=== PATIENT | female | born 1940 | race Caucasian/White ===

== ENCOUNTER 2017-12-26 17:08 | Observation (INO) ==
--- NOTE | 2017-12-26 17:49 | Emergency Department Note ---
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 Diabetes mellitus complication status: with unspecified complications Qualified Code(s): E11.8 - Type 2 diabetes mellitus with unspecified complications Hypothyroidism Qualifiers: Hypothyroidism type: unspecified Qualified Code(s): E03.9 - Hypothyroidism, unspecified Disposition: Admitted as Observation Condition on Discharge: Good Referrals: Elenita Malagon PA [Primary Care Provider] - - Critical Care Critical Care Time: No Attestation: On 12/26/17, the high probability of a clinically significant, sudden or life threatening deterioration of the following system(s) required my full and direct attention, intervention and personal management. The time I documented below is in addition to time spent performing reported procedures but includes the following listed in this critical care notation. Medical Decision Making - Medical Records Medical records reviewed: Yes: I reviewed the patient's medical records. - Jose Inquiry Pt receiving controlled substance: No Vital Signs: 12/26/17 17:12 Temperature 100.2 F H Temperature Source Tympanic Pulse Rate [Left Radial] 80 Respiratory Rate 16 Blood Pressure [Right Arm] 171/58 Blood Pressure Mean [Right Arm] 95 02 Sat by Pulse Oximetry 96 Oxygen Delivery Method Room Air - Lab Data Lab results reviewed: Yes: I reviewed the patient's lab results. Lab Results 12/26/17 17:30: WBC 9.7, RBC 5.19, Hgb 14.3, Hct 42.4, MCV 81.7, MCH 27.5, MCHC 33.6, RDW 13.3, Plt Count 209, MPV 8.6, Neut % (Auto) 85.8 H, Lymph % (Auto) 7.5 L, [place] % (Auto) 6.3, Eos % (Auto) 0.1, Baso % (Auto) 0.3, Neut # (Auto) 8.3 H, Lymph # (Auto) 0.7, [place] # (Auto) 0.6, Eos # (Auto) 0.0, Baso # (Auto) 0.0, Total Counted 100, Neutrophils % (Manual) 85 H, Band Neutrophils % 7.0, Lymphocytes % (Manual) 6 L, Monocytes % (Manual) 2, Platelet Estimate Normal, RBC Morphology Normal 12/26/17 17:30: Sodium 136, Potassium 3.2 L, Chloride 97 L, Carbon Dioxide 28, Anion Gap 14.2, BUN 25 H, Creatinine 1.05 H, Estimated Creat Clear 51, Estimated GFR 51 L, Est GFR ( Amer) 61, Glucose 296 H, Calcium 9.7, Total Bilirubin 0.8, AST 12 L, ALT 17, Alkaline Phosphatase 60, Troponin I < 0.02, Total Protein 8.0, Albumin 3.9, Globulin 4.1 H, Albumin/Globulin Ratio 1.0 L 12/26/17 17:30: Lactic Acid 1.7 12/26/17 18:55: Urine Color Yellow, Urine Appearance Cloudy, Urine pH 5.5, Ur Specific [place] 1.025, Urine Protein 1+, Urine Glucose (UA) 3+, Urine Ketones 1 +, Urine Blood 1+, Urine Nitrate Positive, Urine Bilirubin Negative, Urine Urobilinogen 1.0, Ur Leukocyte Esterase 1+ A, Urine RBC None, Urine WBC Tntc, Ur Squamous Epith Cells 5-10, Urine Bacteria 4+ Result diagrams: 12/26/17 17:30 12/26/17 17:30 Orders (Tests/Meds): ORDERS Category Date Time Status XR chest 2V Stat Exams 12/26/17 17:24 Taken Blood Culture Stat Micro 12/26/17 17:30 Ordered Urine Culture Stat Micro 12/26/17 18:55 Received Weakness HPI - General Chief complaint: Weakness Stated complaint: burning up.weakness Time Seen by Provider: 12/26/17 17:20 Mode of Arrival: Ambulatory Limitations: No Limitations Description of Symptoms (Recalled from ER Triage Doc. by RN): to ed per pvt car with c/o "not feeling well" difficult to obtain a hx from pt. c/o generalized weakness and "burning up" and cough. denies any chills, nausea vomiting, SOB or chest pain. states started yesterday afternoon and resolved lastnight but return of symptoms today. - History of Present Illness HPI Narrative: pt with not feeling well and weak with dec po intake - no chest pain - no vomiting but has nausea and no diarrhea MD Complaint: generalized weakness Onset (ago): day(s) Duration: constant Migration: none Severity: moderate Associated symptoms: loss of appetite, nausea/vomiting - Related Data Home Medications Medication Instructions Recorded Confirmed Ergocalciferol (Vitamin D2) 50,000 unit PO QWEEK 12/26/17 12/26/17 [Vitamin D2] Levothyroxine Sodium [Synthroid 25 mcg PO ONCE 12/26/17 12/26/17 25mcg (0.025mg) tablet] Lisinopril/Hydrochlorothiazide 1 tab PO DAILY 12/26/17 12/26/17 [Lisinopril-Hctz 20-25 mg Tab] Metformin HCl [Glucophage] 1,000 mg PO BID 12/26/17 12/26/17 Pioglitazone HCl 15 mg PO DAILY 12/26/17 12/26/17 glipiZIDE [Glipizide ER] 10 mg PO DAILY 12/26/17 12/26/17 Allergies Allergy/AdvReac Type Severity Reaction Status Date / Time No Known Allergies Allergy Unverified 07/22/17 14:29 [facility] History I have reviewed the patient's past medical history: Yes - Social History Alcohol Intake: never - Psychiatric History Expresses thoughts of harming self/others: None Suicide Plan Description: No Plan ROS Obtained: Yes All systems reviewed & no additional complaints - Constitutional Constitutional: Denies fever(s), Reports malaise - Eyes Eyes: Denies change in vision - ENT Ears, Nose, Mouth, and Throat: Denies sore throat - Cardiovascular Cardiovascular: Denies chest pain - Respiratory Respiratory: No cough - Gastrointestinal Gastrointestingal: Reports: nausea. Denies: abdominal pain - Genitourinary Female Genitourinary: Denies dysuria, Denies hematuria - Integumentary/Breasts Skin/Breast: Denies rash - Neurologic Neurologic: Denies seizure-like activity Physical Exam - General General appearance: in no apparent distress - Head Head exam: normocephalic - Eye Eye exam: Present: PERRL, EOMI. Absent: scleral icterus - ENT ENT exam: Present: mucous membranes dry - Neck Neck exam: Absent: trachea midline - Respiratory Respiratory exam: Present: normal lung sounds bilaterally. Absent: respiratory distress - Cardiovascular Cardiovascular exam: Present: regular rate, systolic murmur - Abdominal Exam Abdominal exam: Present: soft - Extremities Exam Extremities exam: Absent: joint swelling - Back Exam Back exam: Absent: CVA tenderness (R) - Neurological Exam Neurological exam: Present: alert, oriented X3, CN II-XII intact - Psychiatric Psychiatric exam: Absent: depressed - Skin Skin exam: Absent: rash
[2017-12-26 17:56] LABS: Basophils % 0.3 % (0.1-2.0); Eosinophils % 0.1 % (0.1-12.0); Hematocrit 42.4 % (37.0-47.0); Hemoglobin 14.3 g/dL (12.2-16.2); Lymphocytes # 0.7 K/mm3 (0.7-4.5); Lymphocytes % 7.5 K/mm3 (10-50); Mean Corpuscular HGB Conc 33.6 g/dL (31.8-35.4); Mean Corpuscular Hemoglobin 27.5 pg (27.0-31.2); Mean Corpuscular Volume 81.7 fl (81-99); Mean Platelet Volume 8.6 fl (7.4-10.4); Monocytes # 0.6 K/mm3 (0.1-1.0); Monocytes % 6.3 % (1.7-9.3); Neutrophils # 8.3 K/mm3 (1.8-7.8); Neutrophils % 85.8 % (37.0-80.0); Platelet Count 209 K/mm3 (142-424); Red Blood Count 5.19 M/mm3 (4.20-5.40); Red Cell Distribution Width 13.3 % (11.5-17.5); White Blood Count 9.7 K/mm3 (4.8-10.8)
[2017-12-26 18:16] LABS: Alanine Aminotransferase 17 U/L (12-78); Albumin Level 3.9 gm/dL (3.4-5.0); Alkaline Phosphatase 60 U/L (46-116); Anion Gap 14.2 mEq/L (5-15); Aspartate Amino Transferase 12 U/L (15-37); Bilirubin,Total 0.8 mg/dL (0.2-1.0); Blood Urea Nitrogen 25 mg/dL (7-18); Calcium 9.7 mg/dL (8.5-10.1); Carbon Dioxide 28 mmol/L (21.0-32.0); Chloride 97 mmol/L (98-107); Globulin 4.1 gm/dl (1.3-3.2); Glucose 296 mg/dL (74-106); Potassium 3.2 mmoL/L (3.5-5.1); Sodium 136 mmol/L (136-145)
[2017-12-26 18:51] LABS: Lymphocytes % 6 % (10-50); Monocytes % 2 % (2-9); Neutrophils % 85 % (42-76); RBC Morphology Normal; Total Cells Counted 100
[2017-12-26 19:04] LABS: Microscopic, Urine URINE MICROSCOPIC (MICROSCOPIC)
[2017-12-26 19:05] LABS: Appearance,Urine CLOUDY (Clear); Bilirubin,Urine Negative (Negative); Blood, Urine 1+ (Negative); Color,Urine YELLOW (Yellow); Glucose,Urine (UA) 3+ (Negative); Ketones,Urine 1+ (Negative); Leukocyte Esterase,Urine 1+ (Negative); PH,Urine 5.5 (5.0-8.5); Protein,Urine 1+ (Negative); Specific Gravity, Urine 1.025 (1.005-1.030)
[2017-12-26 19:23] LABS: Bacteria,Urine 4+ /lpf; WBC,Urine TNTC #/hpf (0-3)
[2017-12-26 20:07] LABS: T4 (Thyroxine) 14.3 ug/dl (4.7-13.3); Thyroid Stimulating Hormone 1.85 uIU/ml (0.358-3.740)
[2017-12-27 07:01] LABS: Basophils % 0.1 % (0.1-2.0); Eosinophils % 0.2 % (0.1-12.0); Hematocrit 37.2 % (37.0-47.0); Lymphocytes # 0.8 K/mm3 (0.7-4.5); Lymphocytes % 12.6 K/mm3 (10-50); Mean Corpuscular HGB Conc 33.2 g/dL (31.8-35.4); Mean Corpuscular Hemoglobin 27.4 pg (27.0-31.2); Mean Corpuscular Volume 82.4 fl (81-99); Mean Platelet Volume 8.6 fl (7.4-10.4); Monocytes # 0.5 K/mm3 (0.1-1.0); Monocytes % 6.8 % (1.7-9.3); Neutrophils # 5.4 K/mm3 (1.8-7.8); Neutrophils % 80.3 % (37.0-80.0); Platelet Count 173 K/mm3 (142-424); Red Blood Count 4.52 M/mm3 (4.20-5.40); Red Cell Distribution Width 13.3 % (11.5-17.5); White Blood Count 6.7 K/mm3 (4.8-10.8)
[2017-12-27 07:19] LABS: Hemoglobin 12.4 g/dL (12.2-16.2)
[2017-12-27 08:43] VITALS: BP 153/54
--- NOTE | 2017-12-27 09:48 | Pharmacy Consult Notes ---
[facility] Pharmacy VTE Monitoring - Patient Demographics Admission date: 12/27/17 Report Date: 12/27/17 Time: 09:47 Allergies/Adverse Reactions: Patient Allergies No Known Allergies Allergy (Unverified 07/22/17 14:29) Height: 1.68 m Weight: 70.817 kg Patient Problems: Current Active Problems UTI (urinary tract infection) (Acute) Renal insufficiency (Acute) Diabetes (Acute) Hypothyroidism (Acute) - VTE Risk Labs: VTE Related Lab Results Hgb 12.4 g/dL (12.2-16.2) D 12/27/17 06:30 Hct 37.2 % (37.0-47.0) 12/27/17 06:30 Plt Count 173 K/mm3 (142-424) 12/27/17 06:30 BUN 22 mg/dL (7-18) H 12/27/17 06:30 Creatinine 0.89 mg/dL (0.55-1.02) 12/27/17 06:30 Estimated Creat Clear 52 mL/min (0-300) 12/27/17 06:30 VTE Score: 1 VTE Risk Level: Very Low Risk - Prophylaxis Location of Applied Device: Bilateral Lower Extremeties, Not Applicable - VTE Diagnosis Confirmed Comment: SHAHNAZ CHAWLA ORDERED
--- NOTE | 2017-12-27 10:21 | H&P/Discharge Summary ---
General - General Admission date:: 12/26/17 Discharge date: 12/27/17 *Admission Date: 12/27/17 *Chief complaint: weakness *History of present illness: 77 yr old female presents to ed per pvt car with c/o "not feeling well" for 2 weeks but wore since . Pt c/o generalized weakness and "burning up" and cough. denies any chills, nausea vomiting, SOB or chest pain. Pt admitted for monitoring and repeat labs. [facility] History I have reviewed the patient's past medical history: Yes Medical History: Reports:: Diabetes Mellitus Type 2, Hypertension Denies:: Cancer, Diabetes Mellitus Type 1, MRSA Other Medical History: Reports: Cataracts Laterality Cases: Bilateral: Cataract Other Surgeries: Yes: Skin Cancer Excision Amputation: No Fractures: No - *Social History Educational Level: Completed High School Smoking Status: Never smoker Alcohol Intake: never Occupational Status: retired Housing: house Household Members: spouse - Psychiatric History Expresses thoughts of harming self/others: None Suicide Plan Description: No Plan *Family Hx:: Cancer, Coronary Artery Disease, Diabetes, Heart Attack Review of Systems - Review of Systems Review of systems:: pertinent systems reviewed and negative unless documented below - Constitutional Reports weakness, Denies chills - Eyes Denies change in vision - ENT Denies change in voice - *Cardiovascular Denies chest pain with activity - *Respiratory Denies cough - *Gastrointestinal Denies change in bowel habits - *Genitourinary Denies abnormal vaginal bleeding - *Musculoskeletal Denies decreased muscle mass - Integumentary/Breasts Denies change in hair, Denies rash - *Neurologic Denies abnormal movements, Denies seizure-like activity - Psychiatric Denies anxiety - Endocrine Denies flushing - Hematologic/Lymphatic Denies enlarged lymph nodes - Allergic/Immunologic Denies lip swelling Exam Vital signs and Labs for Last 24 Hours: Temp Pulse Resp BP Pulse Ox 98.8 F 78 18 153/54 97 12/27/17 08:00 12/27/17 08:00 12/27/17 08:00 12/27/17 08:00 12/27/17 08:00 Laboratory Results - last 24 hr 12/26/17 17:30: WBC 9.7, RBC 5.19, Hgb 14.3, Hct 42.4, MCV 81.7, MCH 27.5, MCHC 33.6, RDW 13.3, Plt Count 209, MPV 8.6, Neut % (Auto) 85.8 H, Lymph % (Auto) 7.5 L, [place] % (Auto) 6.3, Eos % (Auto) 0.1, Baso % (Auto) 0.3, Neut # (Auto) 8.3 H, Lymph # (Auto) 0.7, [place] # (Auto) 0.6, Eos # (Auto) 0.0, Baso # (Auto) 0.0, Total Counted 100, Neutrophils % (Manual) 85 H, Band Neutrophils % 7.0, Lymphocytes % (Manual) 6 L, Monocytes % (Manual) 2, Platelet Estimate Normal, RBC Morphology Normal 12/26/17 17:30: Sodium 136, Potassium 3.2 L, Chloride 97 L, Carbon Dioxide 28, Anion Gap 14.2, BUN 25 H, Creatinine 1.05 H, Estimated Creat Clear 51, Estimated GFR 51 L, Est GFR ( Amer) 61, Glucose 296 H, Calcium 9.7, Total Bilirubin 0.8, AST 12 L, ALT 17, Alkaline Phosphatase 60, Troponin I < 0.02, Total Protein 8.0, Albumin 3.9, Globulin 4.1 H, Albumin/Globulin Ratio 1.0 L 12/26/17 17:30: Lactic Acid 1.7 12/26/17 17:30: TSH 1.85, Thyroxine (T4) 14.3 H 12/26/17 18:55: Urine Color Yellow, Urine Appearance Cloudy, Urine pH 5.5, Ur Specific [place] 1.025, Urine Protein 1+, Urine Glucose (UA) 3+, Urine Ketones 1 +, Urine Blood 1+, Urine Nitrate Positive, Urine Bilirubin Negative, Urine Urobilinogen 1.0, Ur Leukocyte Esterase 1+ A, Urine RBC None, Urine WBC Tntc, Ur Squamous Epith Cells 5-10, Urine Bacteria 4+ 12/26/17 22:28: POC Glucose 344 H* 12/27/17 05:57: POC Glucose 188 H 12/27/17 06:30: WBC 6.7 D, RBC 4.52, Hgb 12.4 D, Hct 37.2, MCV 82.4, MCH 27.4 , MCHC 33.2, RDW 13.3, Plt Count 173, MPV 8.6, Neut % (Auto) 80.3 H, Lymph % ( Auto) 12.6, [place] % (Auto) 6.8, Eos % (Auto) 0.2, Baso % (Auto) 0.1, Neut # (Auto ) 5.4, Lymph # (Auto) 0.8, [place] # (Auto) 0.5, Eos # (Auto) 0.0, Baso # (Auto) 0.0 12/27/17 06:30: Sodium 139, Potassium 3.0 L, Chloride 102, Carbon Dioxide 30, Anion Gap 10.0, BUN 22 H, Creatinine 0.89, Estimated Creat Clear 52, Estimated GFR 61, Est GFR ( Amer) 74 D, Glucose 192 H D 12/27/17 08:59: POC Glucose 248 H I & O for Last 24 hours: Intake & Output 12/24/17 12/25/17 12/26/17 12/27/17 11:59 11:59 11:59 11:59 Intake Total 1600 / 1600 Output Total 150 / 150 Balance 1450 / 1450 Weight 156 lb 2 oz Microbiology Reports for the Last 24 Hours: Microbiology 12/26/17 18:55 Urine,Clean Catch Urine Culture - Preliminary Gram Negative Rods - Constitutional no acute distress - *Routine HEENT Exam Head: Present: normocephalic Eye: Present: PERRL ENT: Present: mucous membranes moist - *Routine Neck Exam Present: supple, full ROM - *Routine Respiratory Exam Present: CTA bilaterally - *Routine Cardiovascular Exam Present: RRR - *Routine Abdominal Exam Present: soft, normoactive bowel sounds - *Routine Extremities Exam Present: full ROM - *Routine Skin Exam Present: intact - *Routine Neurological Exam Present: alert, oriented X3, CN II-XII intact - Routine Psychiatric Exam Present: normal affect, normal thought process Hospital Course Hospital Course: iv fluids, monitoring of labs. today pt states better, will dc home to follow up with loulou this week, recheck kcl friday Results Labs on day of discharge: Labs from last 24 hours 12/27/17 12/27/17 12/27/17 08:59 06:30 06:30 WBC 6.7 D RBC 4.52 Hgb 12.4 D Hct 37.2 MCV 82.4 MCH 27.4 MCHC 33.2 RDW 13.3 Plt Count 173 MPV 8.6 Neut % (Auto) 80.3 H Lymph % (Auto) 12.6 [place] % (Auto) 6.8 Eos % (Auto) 0.2 Baso % (Auto) 0.1 Neut # (Auto) 5.4 Lymph # (Auto) 0.8 [place] # (Auto) 0.5 Eos # (Auto) 0.0 Baso # (Auto) 0.0 Total Counted Neutrophils % (Manual) Band Neutrophils % Lymphocytes % (Manual) Monocytes % (Manual) Platelet Estimate RBC Morphology Sodium 139 Potassium 3.0 L Chloride 102 Carbon Dioxide 30 Anion Gap 10.0 BUN 22 H Creatinine 0.89 Estimated Creat Clear 52 Estimated GFR 61 Est GFR ( Amer) 74 D Glucose 192 H D POC Glucose 248 H Lactic Acid Calcium Total Bilirubin AST ALT Alkaline Phosphatase Troponin I Total Protein Albumin Globulin Albumin/Globulin Ratio TSH Thyroxine (T4) Urine Color Urine Appearance Urine pH Ur Specific [place] Urine Protein Urine Glucose (UA) Urine Ketones Urine Blood Urine Nitrate Urine Bilirubin Urine Urobilinogen Ur Leukocyte Esterase Urine RBC Urine WBC Ur Squamous Epith Cells Urine Bacteria 12/27/17 12/26/17 12/26/17 05:57 22:28 18:55 WBC RBC Hgb Hct MCV MCH MCHC RDW Plt Count MPV Neut % (Auto) Lymph % (Auto) [place] % (Auto) Eos % (Auto) Baso % (Auto) Neut # (Auto) Lymph # (Auto) [place] # (Auto) Eos # (Auto) Baso # (Auto) Total Counted Neutrophils % (Manual) Band Neutrophils % Lymphocytes % (Manual) Monocytes % (Manual) Platelet Estimate RBC Morphology Sodium Potassium Chloride Carbon Dioxide Anion Gap BUN Creatinine Estimated Creat Clear Estimated GFR Est GFR ( Amer) Glucose POC Glucose 188 H 344 H* Lactic Acid Calcium Total Bilirubin AST ALT Alkaline Phosphatase Troponin I Total Protein Albumin Globulin Albumin/Globulin Ratio TSH Thyroxine (T4) Urine Color Yellow Urine Appearance Cloudy Urine pH 5.5 Ur Specific [place] 1.025 Urine Protein 1+ Urine Glucose (UA) 3+ Urine Ketones 1+ Urine Blood 1+ Urine Nitrate Positive Urine Bilirubin Negative Urine Urobilinogen 1.0 Ur Leukocyte Esterase 1+ A Urine RBC None Urine WBC Tntc Ur Squamous Epith Cells 5-10 Urine Bacteria 4+ 12/26/17 12/26/17 12/26/17 17:30 17:30 17:30 WBC RBC Hgb Hct MCV MCH MCHC RDW Plt Count MPV Neut % (Auto) Lymph % (Auto) [place] % (Auto) Eos % (Auto) Baso % (Auto) Neut # (Auto) Lymph # (Auto) [place] # (Auto) Eos # (Auto) Baso # (Auto) Total Counted Neutrophils % (Manual) Band Neutrophils % Lymphocytes % (Manual) Monocytes % (Manual) Platelet Estimate RBC Morphology Sodium 136 Potassium 3.2 L Chloride 97 L Carbon Dioxide 28 Anion Gap 14.2 BUN 25 H Creatinine 1.05 H Estimated Creat Clear 51 Estimated GFR 51 L Est GFR ( Amer) 61 Glucose 296 H POC Glucose Lactic Acid 1.7 Calcium 9.7 Total Bilirubin 0.8 AST 12 L ALT 17 Alkaline Phosphatase 60 Troponin I < 0.02 Total Protein 8.0 Albumin 3.9 Globulin 4.1 H Albumin/Globulin Ratio 1.0 L TSH 1.85 Thyroxine (T4) 14.3 H Urine Color Urine Appearance Urine pH Ur Specific [place] Urine Protein Urine Glucose (UA) Urine Ketones Urine Blood Urine Nitrate Urine Bilirubin Urine Urobilinogen Ur Leukocyte Esterase Urine RBC Urine WBC Ur Squamous Epith Cells Urine Bacteria 12/26/17 17:30 WBC 9.7 RBC 5.19 Hgb 14.3 Hct 42.4 MCV 81.7 MCH 27.5 MCHC 33.6 RDW 13.3 Plt Count 209 MPV 8.6 Neut % (Auto) 85.8 H Lymph % (Auto) 7.5 L [place] % (Auto) 6.3 Eos % (Auto) 0.1 Baso % (Auto) 0.3 Neut # (Auto) 8.3 H Lymph # (Auto) 0.7 [place] # (Auto) 0.6 Eos # (Auto) 0.0 Baso # (Auto) 0.0 Total Counted 100 Neutrophils % (Manual) 85 H Band Neutrophils % 7.0 Lymphocytes % (Manual) 6 L Monocytes % (Manual) 2 Platelet Estimate Normal RBC Morphology Normal Sodium Potassium Chloride Carbon Dioxide Anion Gap BUN Creatinine Estimated Creat Clear Estimated GFR Est GFR ( Amer) Glucose POC Glucose Lactic Acid Calcium Total Bilirubin AST ALT Alkaline Phosphatase Troponin I Total Protein Albumin Globulin Albumin/Globulin Ratio TSH Thyroxine (T4) Urine Color Urine Appearance Urine pH Ur Specific [place] Urine Protein Urine Glucose (UA) Urine Ketones Urine Blood Urine Nitrate Urine Bilirubin Urine Urobilinogen Ur Leukocyte Esterase Urine RBC Urine WBC Ur Squamous Epith Cells Urine Bacteria Preliminary micro results at discharge 12/26/17 18:55 Urine Culture - Preliminary Urine,Clean Catch Gram Negative Rods - Additional Comments Dr. Gamez rounded earlier all orders per Dr. Gamez Discharge Medications Discharge Medications: Home Medications Medication Instructions Recorded Confirmed Type Ergocalciferol (Vitamin D2) 50,000 unit PO QWEEK 12/26/17 12/26/17 History [Vitamin D2] Levothyroxine Sodium [Synthroid 25 mcg PO DAILY 12/26/17 12/27/17 History 25mcg (0.025mg) tablet] Lisinopril/Hydrochlorothiazide 1 tab PO DAILY 12/26/17 12/26/17 History [Lisinopril-Hctz 20-25 mg Tab] Metformin HCl [Glucophage] 1,000 mg PO BID 12/26/17 12/26/17 History glipiZIDE [Glipizide ER] 10 mg PO DAILY 12/26/17 12/26/17 History Pioglitazone HCl 15 mg PO DAILY 12/27/17 12/27/17 History Disposition Disposition: Home, Self-Care
== END 2017-12-27 10:55 | disposition home or self-care (01) ==
LOC: ER 17:08 → 2ND 17:08
PROVIDERS: ADMIT Emergency Medicine; ATTEND Emergency Medicine

== ENCOUNTER → 2017-12-30 07:15 | Outpatient (CLI) | payer MEDICARE, SELFPAY ==
[2017-12-30 10:43] LABS: Anion Gap 13.5 mEq/L (5-15); Blood Urea Nitrogen 15 mg/dL (7-18); Carbon Dioxide 30 mmol/L (21.0-32.0); Chloride 103 mmol/L (98-107); Creatinine,Serum 0.75 mg/dL (0.55-1.02); Estimated Glomerular Filt Rate 75 ml/min (>60); GFR (African American) 90 ML/MIN (>60); Glucose 284 mg/dL (74-106); Potassium 3.5 mmoL/L (3.5-5.1); Sodium 143 mmol/L (136-145)
== END ==
PROVIDERS: Visit Provider Nurse Practitioner Family
DX: N39.0 Urinary tract infection, site not specified (principal); N28.9 Disorder of kidney and ureter, unspecified; E11.8 Type 2 diabetes mellitus with unspecified complications
CPT/HCPCS: 36415; 80048

== ENCOUNTER → 2018-01-22 11:30 | Outpatient (REF) | payer MEDICARE, SELFPAY | LOC: LAB 11:30 | PROVIDERS: Visit Provider Physician Assistant | DX: R30.0 Dysuria (principal) | CPT/HCPCS: 87086; 87088; 87186 ==

== ENCOUNTER → 2018-02-18 11:23 | Outpatient (REF) | payer MEDICARE, SELFPAY ==
[2018-02-18 11:25] LABS: Microscopic, Urine URINE MICROSCOPIC (MICROSCOPIC)
[2018-02-18 13:28] LABS: Appearance,Urine SL CLOUDY (Clear); Bilirubin,Urine Negative (Negative); Blood, Urine Negative (Negative); Color,Urine YELLOW (Yellow); Glucose,Urine (UA) 3+ (Negative); Ketones,Urine Negative (Negative); Leukocyte Esterase,Urine TRACE (Negative); Nitrate,Urine Negative (Negative); PH,Urine 5.5 (5.0-8.5); Protein,Urine Negative (Negative); Specific Gravity, Urine 1.025 (1.005-1.030); Urobilinogen,Urine 0.2 EU/dl (0.2)
[2018-02-18 14:20] LABS: Bacteria,Urine 4+ /lpf; Hyaline Casts,Urine Occasional #/lpf (0); RBC,Urine Occasional #/hpf (0-3); WBC,Urine 20-50 #/hpf (0-3)
== END ==
LOC: LAB 11:23
PROVIDERS: Visit Provider Physician Assistant
DX: R30.0 Dysuria (principal); R30.9 Painful micturition, unspecified
CPT/HCPCS: 81001

== ENCOUNTER → 2018-02-18 13:50 | Outpatient (CLI) | payer MEDICARE, SELFPAY | PROVIDERS: Visit Provider Physician Assistant | DX: R30.0 Dysuria (principal); R30.9 Painful micturition, unspecified | CPT/HCPCS: 87086; 87088; 87186 ==

== ENCOUNTER → 2018-03-30 08:30 | Outpatient (CLI) | payer MEDICARE, SELFPAY ==
[2018-03-30 10:24] LABS: Alanine Aminotransferase 20 U/L (12-78); Albumin Level 4.1 gm/dL (3.4-5.0); Albumin/Globulin Ratio 1.6 (1.1-1.8); Alkaline Phosphatase 55 U/L (46-116); Anion Gap 12.7 mEq/L (5-15); Aspartate Amino Transferase 11 U/L (15-37); Bilirubin,Total 0.5 mg/dL (0.2-1.0); Blood Urea Nitrogen 18 mg/dL (7-18); Calcium 9.3 mg/dL (8.5-10.1); Carbon Dioxide 29 mmol/L (21.0-32.0); Chloride 101 mmol/L (98-107); Creatinine,Serum 0.94 mg/dL (0.55-1.02); Estimated Glomerular Filt Rate 58 ml/min (>60); GFR (African American) 70 ML/MIN (>60); Globulin 2.6 gm/dl (1.3-3.2); Glucose 235 mg/dL (74-106); Potassium 3.7 mmoL/L (3.5-5.1); Sodium 139 mmol/L (136-145); Total Protein,Serum 6.7 gm/dL (6.4-8.2)
== END ==
PROVIDERS: PCP Physician Assistant; Visit Provider Otolaryngology
DX: Z01.818 Encounter for other preprocedural examination (principal)
CPT/HCPCS: 36415; 80053; 93005

== ENCOUNTER → 2019-03-29 07:58 | Outpatient (CLI) | payer MEDICARE, SELFPAY ==
[2019-03-29 08:35] LABS: Basophils % 0.4 % (0.1-2.0); Eosinophils % 0.1 % (0.1-12.0); Hematocrit 43.5 % (37.0-47.0); Hemoglobin 14.9 g/dL (12.2-16.2); Lymphocytes # 1.3 K/mm3 (0.7-4.5); Lymphocytes % 20.1 % (10-50); Mean Corpuscular HGB Conc 34.2 g/dL (31.8-35.4); Mean Corpuscular Hemoglobin 28.3 pg (27.0-31.2); Mean Corpuscular Volume 82.9 fl (81-99); Monocytes # 0.4 K/mm3 (0.1-1.0); Monocytes % 6.3 % (1.7-9.3); Neutrophils # 4.8 K/mm3 (1.8-7.8); Neutrophils % 73.2 % (37.0-80.0); Platelet Count 183 K/mm3 (142-424); Red Blood Count 5.25 M/mm3 (4.20-5.40); Red Cell Distribution Width 14.7 % (11.5-17.5); White Blood Count 6.6 K/mm3 (4.8-10.8)
[2019-03-29 10:42] LABS: Alanine Aminotransferase 21 U/L (12-78); Albumin Level 4.4 gm/dL (3.4-5.0); Albumin/Globulin Ratio 1.5 (1.1-1.8); Alkaline Phosphatase 62 U/L (46-116); Anion Gap 12.9 mEq/L (5-15); Aspartate Amino Transferase 11 U/L (15-37); Bilirubin,Total 0.7 mg/dL (0.2-1.0); Blood Urea Nitrogen 24 mg/dL (7-18); Calcium 9.6 mg/dL (8.5-10.1); Carbon Dioxide 33 mmol/L (21.0-32.0); Chloride 100 mmol/L (98-107); Chol/HDL Ratio 5.2 (1-3.5); Cholesterol 171 mg/dL (140-200); Creatinine,Serum 0.82 mg/dL (0.55-1.02); Estimated Glomerular Filt Rate 67 ml/min (>60); GFR (African American) 81 ML/MIN (>60); Glucose 166 mg/dL (74-106); HDL Cholesterol 33 mg/dL (29-89); LDL Cholesterol 104 mg/dL (0-130); Potassium 3.9 mmoL/L (3.5-5.1); Sodium 142 mmol/L (136-145); T4 (Thyroxine) 14.1 ug/dl (4.7-13.3); Thyroid Stimulating Hormone 3.29 uIU/ml (0.358-3.740); Total Protein,Serum 7.4 gm/dL (6.4-8.2); Triglycerides 170 mg/dL (30-200); VLDL Cholesterol 34 mg/dL (0-40)
[2019-03-29 10:50] LABS: Hemoglobin A1C 6.8 % (0.0-7.0)
[2019-03-30 11:20] LABS: Microalbumin, Urine 97.7 ug/mL (Not Estab.)
== END ==
PROVIDERS: Visit Provider Physician Assistant
DX: N39.0 Urinary tract infection, site not specified (principal); E03.9 Hypothyroidism, unspecified; E11.9 Type 2 diabetes mellitus without complications; Z79.84 Long term (current) use of oral hypoglycemic drugs
CPT/HCPCS: 36415; 80053; 80061; 82043; 82652; 83036; 84436; 84443; 85025

== ENCOUNTER → 2019-07-05 11:19 | Outpatient (CLI) | payer MEDICARE, SELFPAY ==
--- NOTE | 2019-07-05 11:22 | XR_ITS ---
PROCEDURE: XR HIP RT 2-3V W/PELVIS CLINICAL INDICATION: right hip pain Right hip pain COMPARISON: No exams were available for comparison FINDINGS: No fracture or dislocation is evident. No significant degenerative change. No lytic or blastic change. Unremarkable soft tissues. IMPRESSION: No acute findings. Dictated by: Torsten Esquivel MD 07/05/2019 19:54 Electronically signed by Torsten Esquivel MD in [place] 07/05/2019 19:54
== END ==
PROVIDERS: PCP Physician Assistant; Visit Provider Physician Assistant
DX: M25.551 Pain in right hip (principal)
CPT/HCPCS: 73502

== ENCOUNTER → 2019-10-18 12:20 | Outpatient (CLI) | payer MEDICARE, SELFPAY ==
[2019-10-18 14:41] LABS: T4 (Thyroxine) 9.8 ug/dl (5.53-11.0)
[2019-10-18 14:54] LABS: Thyroid Stimulating Hormone 1.69 uIU/mL (0.465-4.68)
[2019-10-22 11:23] LABS: Triiodothyronine (T3) Free 3.2 pg/mL (2.0-4.4); Vitamin B12 148 pg/mL (232-1245)
== END ==
PROVIDERS: Visit Provider Nurse Practitioner Family
DX: E03.9 Hypothyroidism, unspecified (principal); R25.1 Tremor, unspecified; R79.89 Other specified abnormal findings of blood chemistry
CPT/HCPCS: 36415; 82607; 84436; 84443; 84481

== ENCOUNTER → 2019-12-13 10:51 | Outpatient (CLI) | payer MEDICARE, SELFPAY ==
[2019-12-14 15:22] LABS: Antiparietal Cell Antibody 88.7 Units (0.0-20.0)
[2019-12-16 11:13] LABS: Intrinsic Factor Abs, Serum 61.2 AU/mL (0.0-1.1)
== END ==
PROVIDERS: Visit Provider Nurse Practitioner Family
DX: E53.8 Deficiency of other specified B group vitamins (principal); R25.1 Tremor, unspecified
CPT/HCPCS: 36415; 83516; 86340

== ENCOUNTER 2020-03-28 17:39 | Observation (INO) | payer MEDICARE, SELFPAY ==
[2020-03-28] VITALS (9 sets, daily range): BP systolic 145–209; BP diastolic 68–85; PULSE 76–106; RESP 18–26; TEMP 36.6–37; O2SAT 95–97; BMI 25.0; BMI 24.4
--- NOTE | 2020-03-28 18:06 | PC.NURSE ---
Pt unable to lay back in bed due to vomiting.
--- NOTE | 2020-03-28 18:07 | XR_ITS ---
PROCEDURE: XR CHEST 2V CLINICAL HISTORY: dizziness Nausea and vomiting COMPARISON: CR CXR2V XR chest 2V from 12/26/2017 CR CXR2V XR chest 2V from 12/11/2018 FINDINGS: Mild cardiomegaly without failure. Mild atelectatic changes in the lung bases. No lobar consolidation collapse. Degenerative changes thoracic IMPRESSION: Cardiomegaly with mild bibasilar atelectasis Dictated by: Torsten Esquivel MD 03/29/2020 05:50 Torsten Esquivel MD in [facility] 03/29/2020 05:50
--- NOTE | 2020-03-28 18:09 | [facility].EDGENADL ---
ED Disposition Clinical Impression: Vertigo Disposition: Admitted as Observation Condition on Discharge: Fair Referrals: Elenita Malagon PA [Primary Care Provider] - - Critical Care Critical Care Time: No Attestation: On 03/28/20, the high probability of a clinically significant, sudden or life threatening deterioration of the following system(s) required my full and direct attention, intervention and personal management. The time I documented below is in addition to time spent performing reported procedures but includes the following listed in this critical care notation. Medical Decision Making - Jose Inquiry Pt receiving controlled substance: No Vital Signs: 03/28/20 17:40 03/28/20 19:11 Temperature 98.3 F Temperature Source Oral Pulse Rate [Left Radial] 76 81 Respiratory Rate 20 26 H Blood Pressure [Right Radial Artery] 184/83 H 209/83 H Blood Pressure Mean [Right Radial Artery] 116 125 Blood Pressure Source [Right Radial Artery] Automatic Cuff Automatic Cuff Blood Pressure Position [Right Radial Artery] Sitting Sitting 02 Sat by Pulse Oximetry 97 96 Oxygen Delivery Method Room Air - Lab Data Lab Results 03/28/20 18:10: WBC 7.7, RBC 5.47 H, Hgb 16.4 H, Hct 45.0, MCV 82.3, MCH 29.9, MCHC 36.4 H, RDW 13.9, Plt Count 154, MPV 7.9, Neut % (Auto) 82.2 H, Lymph % (Auto) 12.8, [place] % (Auto) 4.2, Eos % (Auto) 0.5, Baso % (Auto) 0.3, Neut # (Auto) 6.3, Lymph # (Auto) 1.0, [place] # (Auto) 0.3, Eos # (Auto) 0.0, Baso # (Auto) 0.0 03/28/20 18:10: Sodium 139, Potassium 3.3 L, Chloride 94 L, Carbon Dioxide 31 H, Anion Gap 17.3 H, BUN 16, Creatinine 0.60, Estimated Creat Clear 50, Estimated GFR 96, Est GFR ( Amer) 116, Glucose 191 H, Calcium 9.6, Troponin I < 0.01 03/28/20 18:30: Urine Color Yellow, Urine Appearance Clear, Urine pH 7.0, Ur Specific [place] 1.020, Urine Protein 1+, Urine Glucose (UA) 1+, Urine Ketones Negative, Urine Blood Negative, Urine Nitrate Negative, Urine Bilirubin Negative, Urine Urobilinogen 0.2, Ur Leukocyte Esterase Trace, Urine WBC 3-5, Ur Squamous Epith Cells Occasional, Urine Bacteria Trace Result diagrams: 03/28/20 18:10 03/28/20 18:10 Orders (Tests/Meds): ED MEDICATIONS Generic Name Dose Route Start Last Admin Trade Name Freq PRN Reason Stop Dose Admin Diazepam 2.5 mg 03/28/20 20:07 Valium 10mg/2ml Syringe IV 03/28/20 20:08 ONCE ONE Sodium Chloride 1,000 mls @ 999 mls/hr 03/28/20 18:15 03/28/20 18:08 Sod Chlor 0.9% 1000ml Bag IV 03/28/20 19:15 999 mls/hr .Q1H1M TACO Administration Discontinued Medications Generic Name Dose Route Start Last Admin Trade Name Chin PRN Reason Stop Dose Admin Meclizine HCl 25 mg 03/28/20 18:22 03/28/20 18:30 Antivert 25mg Tablet PO 03/28/20 18:23 25 mg ONCE ONE Administration Ondansetron HCl 4 mg 03/28/20 18:07 03/28/20 18:08 Zofran 4mg/2ml Vial IV 03/28/20 18:08 4 mg ONCE ONE Administration Ondansetron HCl 4 mg 03/28/20 19:12 03/28/20 19:13 Zofran 4mg/2ml Vial IV 03/28/20 19:13 4 mg ONCE ONE Administration Promethazine HCl 25 mg 03/28/20 19:12 03/28/20 19:13 Phenergan 25mg/Ml 1ml Vial IV 03/28/20 19:13 25 mg ONCE ONE Administration Sodium Chloride 25 ml 03/28/20 19:12 03/28/20 19:14 Sod Chlor 0.9% 25ml Bag IV 03/28/20 19:13 25 ml ONCE ONE Administration ORDERS Category Date Time Status CT head/brain wo con Stat Cat Scan 03/28/20 18:20 Ordered Chest XR 2 view (NOT portable) [XR chest 2V] Stat Exams 03/28/20 18:07 Taken Covid-19 IgG/IgM ([facility]) Stat Lab 03/28/20 18:10 Received - Physician Consults Physician Consulted: Franco Time: 20:01 Reason -: Admission Comment/Response: Agrees to admit the patient to the hospital. We discussed the patient's clinical information, including history, exam, laboratory and radiology results and ED course. Per hospital procedure, I will write temporary bridge inpatient orders on the patient. Spec
[2020-03-28 18:33] LABS: Basophils % 0.3 % (0.1-2.0); Eosinophils % 0.5 % (0.1-12.0); Hemoglobin 16.4 g/dL (12.2-16.2); Lymphocytes % 12.8 % (10-50); Mean Corpuscular HGB Conc 36.4 g/dL (31.8-35.4); Mean Corpuscular Hemoglobin 29.9 pg (27.0-31.2); Mean Corpuscular Volume 82.3 fl (81-99); Mean Platelet Volume 7.9 fl (7.4-10.4); Monocytes # 0.3 K/mm3 (0.1-1.0); Monocytes % 4.2 % (1.7-9.3); Neutrophils # 6.3 K/mm3 (1.8-7.8); Neutrophils % 82.2 % (37.0-80.0); Platelet Count 154 K/mm3 (142-424); Red Blood Count 5.47 M/mm3 (4.20-5.40); Red Cell Distribution Width 13.9 % (11.5-17.5); White Blood Count 7.7 K/mm3 (4.8-10.8)
[2020-03-28 18:34] LABS: Microscopic, Urine URINE MICROSCOPIC (MICROSCOPIC)
[2020-03-28 18:37] LABS: Chloride 94 mmol/L (98-107); Potassium 3.3 mmoL/L (3.5-5.1); Sodium 139 mmol/L (136-145)
[2020-03-28 18:37] LABS: Appearance,Urine CLEAR (Clear); Bilirubin,Urine Negative (Negative); Blood, Urine Negative (Negative); Color,Urine YELLOW (Yellow); Glucose,Urine (UA) 1+ (Negative); Ketones,Urine Negative (Negative); Leukocyte Esterase,Urine TRACE (Negative); Nitrate,Urine Negative (Negative); Protein,Urine 1+ (Negative); Urobilinogen,Urine 0.2 EU/dl (0.2)
[2020-03-28 18:40] LABS: Anion Gap 17.3 mEq/L (5-15); Blood Urea Nitrogen 16 mg/dl (7-17); Calcium 9.6 mg/dl (8.4-10.2); Carbon Dioxide 31 mmol/L (22.0-30.0); Creatinine Clearance Estimated 50 mL/min (50-200); Estimated Glomerular Filt Rate 96 ml/min (>60); GFR (African American) 116 ML/MIN (>60); Glucose 191 mg/dl (74-100)
[2020-03-28 19:30] LABS: Troponin I < 0.01 ng/ml (0.00-0.034)
[2020-03-28 19:31] LABS: Bacteria,Urine Trace /lpf; Squamous Epithelial Cell,Urine Occasional #/hpf (0-5)
--- NOTE | 2020-03-28 20:03 | PC.NURSE ---
Pt states that she is unable to lay flat for her CT scan. Will continue to monitor
--- NOTE | 2020-03-28 20:06 | PC.NURSE ---
House aware of pt needs a bed assignment. Will call back with room number
--- NOTE | 2020-03-28 20:08 | PC.NURSE ---
Pt assigned to room 213. Admission notified
[2020-03-28 20:28] LABS: Coronavirus 19 IgG Antibody Negative (Negative); Coronavirus 19 IgM Antibody Negative (Negative)
--- NOTE | 2020-03-28 21:01 | PC.NURSE ---
Report called to [facility]
--- NOTE | 2020-03-28 21:36 | PC.NURSE ---
called med/surg to check status of patient transportation
--- NOTE | 2020-03-28 21:41 | PC.NURSE ---
PT ARRIVED TO THE FLOOR VIA W/C WITH STAFF FROM ED 2139
[2020-03-29 02:07] LABS: POC Glucose,Bedside 215 (70-110)
[2020-03-29 04:00] VITALS: BP 145/67; PULSE 80; RESP 20; TEMP 36.8; O2SAT 96
--- NOTE | 2020-03-29 04:01 | PC.NURSE ---
Pt new admit this shift for vertigo. Pt did walk to bathroom w/ standby assist to void w/o dizziness or N/V. Around 0230 pt did report nausea and was medicated per OCT w/ zofran which relieved her symptoms. Pt instructed to ring for help and bed alarm in place for pt safety. Refused TEDS and a bath.
[2020-03-29 05:16] VITALS: BMI 24.5
[2020-03-29 05:42] LABS: POC Glucose,Bedside 146 (70-110)
--- NOTE | 2020-03-29 07:21 | P.CONPHA_ITS ---
[facility] Pharmacy VTE Monitoring - Patient Demographics Admission date: 03/28/20 Report Date: 03/29/20 Time: 07:21 Allergies/Adverse Reactions: Patient Allergies No Known Allergies Allergy (Verified 03/15/20 10:02) Height: 1.68 m Weight: 69.088 kg Patient Problems: Current Active Problems Vertigo (Acute) - VTE Risk Labs: VTE Related Lab Results Hgb 16.4 g/dL (12.2-16.2) H 03/28/20 18:10 Hct 45.0 % (37.0-47.0) 03/28/20 18:10 Plt Count 154 K/mm3 (142-424) 03/28/20 18:10 BUN 16 mg/dl (7-17) 03/28/20 18:10 Creatinine 0.60 mg/dl (0.52-1.04) 03/28/20 18:10 Estimated Creat Clear 50 mL/min (50-200) 03/28/20 18:10 Was VTE Risk Assessment Performed: Yes VTE Score: 1 VTE Risk Level: Very Low Risk - Prophylaxis VTE Prophylaxis Ordered?: Yes Types of VTE Prophylaxis: TEDS Knee High Location of Applied Device: Bilateral Lower Extremeties
--- NOTE | 2020-03-29 07:51 | HMH.PHAINT ---
MEDICATION RECONCILIATION COMPLETED ON PATIENT USING EXTERNAL FILL HISTORY FROM PHARMACY AND LIST FROM MD OFFICE. -ADELINA MULLIGAND
[2020-03-29 08:00] VITALS: BP 163/64; PULSE 77; RESP 16; RESP 18; TEMP 36.8; O2SAT 97
--- NOTE | 2020-03-29 09:09 | CT_ITS ---
PROCEDURE: CT HEAD/BRAIN WO CON CLINICAL INDICATION: vertigo Nausea and vertigo COMPARISON: No exams were available for comparison TECHNIQUE: Axial images obtained. All CT scans at the facility use one or more dose reduction, viz: automated exposure control, ma/kV adjustment per patient size (including targeted exams where dose is matched to indication, i.e. head), or iterative reconstruction technique. FINDINGS: No midline shift, mass effect, intracranial hemorrhage, hydrocephalus, or extra-axial fluid collection is evident. There is generalized atrophy with hypoattenuation of the periventricular white matter consistent with microangiopathic changes. The calvarium has an unremarkable appearance. No mastoid effusion. No sinus air-fluid level. IMPRESSION: No acute intracranial finding Dictated by: Torsten Esquivel MD 03/29/2020 10:04 Torsten Esquivel MD in [place] 03/29/2020 10:04
--- NOTE | 2020-03-29 09:34 | HMH.HP ---
*Admission Date: 03/28/20 *Chief complaint: Dizziness *History of present illness: 79-year-old female patient into the emergency department for complaints of dizziness. She reports she was sitting in her chair yesterday and attempted to get up and everything in the room started spinning around. She admits a little nausea during episode with a small amount of emesis upon arrival to the ED parking lot. She denies any weakness, numbness, visual disturbances, or hearing abnormalities. She reports this is never happened before and denies any chest pain or shortness of breath. She denies any fever/chills/body aches and no nausea, vomiting, or diarrhea before this occurred. In the emergency department she was now able to lay flat for a head CT, after multiple attempts she stated she was and she would not be able to complete. Lab work was basically within normal limits, UA was negative. Discussed need for head CT with patient, she reports she is feeling better this morning only slightly dizzy and she was able to lie flat in bed will proceed with head CT Chest x-ray 03/28/2020: FINDINGS: Mild cardiomegaly without failure. Mild atelectatic changes in the lung bases. No lobar consolidation collapse. Degenerative changes thoracic IMPRESSION: Cardiomegaly with mild bibasilar atelectasis Dictated by: DORETHA Esquivel History Medical History: Reports:: Diabetes Mellitus Type 2, Hypertension Denies:: Cancer, Diabetes Mellitus Type 1, Internal Pacemaker, MRSA, Seizures *Have you ever received a pneumonia vaccine?: No *Have you received a flu vaccine this season?: No Other Medical History: Reports: Cataracts. Denies: Blood Transfusion Reaction Other Surgeries: Yes: Dilation and Curettage, Skin Cancer Excision, Other (cataracts). No: Pacemaker Amputation: No Fractures: No - *Social History Last grade of school completed: High school graduate Smoking Status: Never smoker Alcohol Intake: never Alcohol Intake Frequency:: other Substance Use Type: denies use *Occupational Status:: retired Housing: house Household Members: spouse *Travel in the last 8 weeks: None Family Hx:: Heart Attack Review of Systems - Review of Systems Review of systems:: pertinent systems reviewed and negative unless documented below - Constitutional Denies body ache(s), Denies chills, Denies fever(s) - Eyes Denies blind spots, Denies blurry vision - ENT Reports poor balance, Reports dizziness, Reports dizziness, Denies abnormal hearing - *Cardiovascular Denies chest pain, Denies shortness of breath - *Respiratory Denies chest congestion, Denies cough, Denies shortness of breath - *Gastrointestinal Denies abdominal pain, Denies change in bowel habits - *Musculoskeletal Denies back pain, Denies body aches - *Neurologic Reports abnormal walking, Reports unsteadiness, Reports dizziness, Denies localized weakness, Denies headache(s), Denies lack of coordination, Denies numbness, Denies weakness - Endocrine Denies cold intolerance, Denies rapid, pounding, or irregular heartbeat - Hematologic/Lymphatic Denies easy bleeding, Denies easy bruising - Allergic/Immunologic Denies GI upset with certain foods, Denies tongue swelling Meds Home Medications Medication Instructions Recorded Confirmed Type primidone 50 mg tablet 200 mg PO BID #240 tab 03/15/20 03/28/20 Rx Lisinopril/Hydrochlorothiazide 1 each PO DAILY 03/28/20 03/29/20 History [Lisinopril-Hctz 20-25 mg Tab*] Metformin HCl [Glucophage] 1,000 mg PO BID 03/28/20 03/28/20 History Pioglitazone HCl 15 mg PO DAILY 03/28/20 03/29/20 History glipiZIDE [Glipizide ER] 10 mg PO BID 03/28/20 03/28/20 History Cyanocobalamin (Vitamin B-12) 1,000 mcg IM MONTHLY 03/29/20 03/29/20 History [Cyanocobalamin 1,000mcg/mL Vial] Allergies Allergy/AdvReac Type Severity Reaction Status Date / Time No Known Allergies Allergy Verified 03/15/20 10:02 Exam Vital signs and Labs for Last 24
[2020-03-29 14:47] VITALS: BMI 24.4
[2020-03-29 16:00] VITALS: BP 151/64; PULSE 67; RESP 16; TEMP 36.9; O2SAT 94
--- NOTE | 2020-03-29 17:24 | PC.NURSE ---
PT C/O SOME N/V AND DIZZINESS EARLIER TODAY, ADMIN MECLIZINE PER OCT, EFFECTIVENESS NOTED, PT DENIED N/V OR DIZZINESS FOLLOWING ADMIN, PT HAS TOLERATED RA WELL TODAY WITH O2 SATS >94% T/O SHIFT, PT HAS AMBULATED TO WITH STANDBY ASSIST. PT IS A0*4 AND ABLE TO FOLLOW COMMANDS. NO NEEDS AT THIS TIME, VSS, WILL CONTINUE TO MONITOR.
--- NOTE | 2020-03-29 19:12 | PC.NURSE ---
report given to ross
[2020-03-29 19:30] LABS: POC Glucose,Bedside 207 (70-110)
[2020-03-29 19:30] LABS: POC Glucose,Bedside 191 (70-110)
[2020-03-29 19:58] VITALS: BP 154/63; PULSE 64; RESP 17; TEMP 36.9; O2SAT 95
[2020-03-29 22:28] LABS: POC Glucose,Bedside 136 (70-110)
--- NOTE | 2020-03-30 02:50 | PC.NURSE ---
Pt noted alert and oriented x4. PERRLA noted bilaterally. Bilateral hand spread cutter noted equal in strength. Cap refill < 3 seconds. No edema noted. Pt tolerated ra well with no c/o soa. RR noted even and unlabored. Denies N/V/D. Denies vertigo this shift thus far. Pt states her was instructed by a inside steward/stewardess to exit their home after describing the symptoms they have both been recently experiencing due to possible carbon monoxide poisoning. Pt's at bedside t/o night. Pt rested well this shift with eyes closed. No acute changes noted from previous shift. Amb well to and from bathroom with standby assist. Urine noted clear and bright yellow in color. No bm noted this shift thus far. VSS. Remains safe. Call light within reach. Will continue to monitor.
[2020-03-30 04:00] VITALS: BP 155/60; PULSE 71; RESP 17; TEMP 36.7; O2SAT 94
[2020-03-30 05:28] LABS: POC Glucose,Bedside 206 (70-110)
[2020-03-30 05:44] VITALS: BMI 24.5
[2020-03-30 07:31] VITALS: BP 171/74; PULSE 64; RESP 16; TEMP 36.6; O2SAT 96
[2020-03-30 08:09] LABS: Basophils % 0.4 % (0.1-2.0); Eosinophils % 0.7 % (0.1-12.0); Hematocrit 38.8 % (37.0-47.0); Hemoglobin 13.7 g/dL (12.2-16.2); Lymphocytes # 0.9 K/mm3 (0.7-4.5); Lymphocytes % 20.2 % (10-50); Mean Corpuscular HGB Conc 35.4 g/dL (31.8-35.4); Mean Corpuscular Hemoglobin 29.9 pg (27.0-31.2); Mean Corpuscular Volume 84.6 fl (81-99); Mean Platelet Volume 9.8 fl (7.4-10.4); Monocytes # 0.4 K/mm3 (0.1-1.0); Monocytes % 7.9 % (1.7-9.3); Neutrophils # 3.1 K/mm3 (1.8-7.8); Neutrophils % 70.8 % (37.0-80.0); Platelet Count 127 K/mm3 (142-424); Red Blood Count 4.59 M/mm3 (4.20-5.40); Red Cell Distribution Width 14.1 % (11.5-17.5); White Blood Count 4.4 K/mm3 (4.8-10.8)
[2020-03-30 08:41] LABS: Anion Gap 12.2 mEq/L (5-15); Blood Urea Nitrogen 13 mg/dl (7-17); Carbon Dioxide 32 mmol/L (22.0-30.0); Chloride 100 mmol/L (98-107); Creatinine Clearance Estimated 49 mL/min (50-200); Estimated Glomerular Filt Rate 81 ml/min (>60); GFR (African American) 97 ML/MIN (>60); Glucose 138 mg/dl (74-100); Potassium 3.2 mmoL/L (3.5-5.1); Sodium 141 mmol/L (136-145)
[2020-03-30 08:56] LABS: Calcium 8.7 mg/dl (8.4-10.2)
--- NOTE | 2020-03-30 09:10 | PC.NURSE ---
rounded with Gabriel Gutiérrez and Gumaro Ron. Pt will go home on a Holter monitor. Has occasional PVCs. RT notified and PCP to input order.
--- NOTE | 2020-03-30 09:36 | HMH.DCSUM ---
General - General Admission date:: 03/28/20 Discharge date: 03/30/20 HPI HPI: 79-year-old female patient into the emergency department for complaints of dizziness. She reports she was sitting in her chair yesterday and attempted to get up and everything in the room started spinning around. She admits a little nausea during episode with a small amount of emesis upon arrival to the ED parking lot. She denies any weakness, numbness, visual disturbances, or hearing abnormalities. She reports this is never happened before and denies any chest pain or shortness of breath. She denies any fever/chills/body aches and no nausea, vomiting, or diarrhea before this occurred. In the emergency department she was now able to lay flat for a head CT, after multiple attempts she stated she was and she would not be able to complete. Lab work was basically within normal limits, UA was negative. Discussed need for head CT with patient, she reports she is feeling better this morning only slightly dizzy and she was able to lie flat in bed will proceed with head CT Chest x-ray 03/28/2020: FINDINGS: Mild cardiomegaly without failure. Mild atelectatic changes in the lung bases. No lobar consolidation collapse. Degenerative changes thoracic IMPRESSION: Cardiomegaly with mild bibasilar atelectasis Dictated by: Alvin, Hospital Course Hospital Course: Laboratory Tests 03/28/20 03/28/20 03/28/20 18:10 18:10 18:10 WBC 7.7 RBC 5.47 H Hgb 16.4 H Hct 45.0 MCV 82.3 MCH 29.9 MCHC 36.4 H RDW 13.9 Plt Count 154 MPV 7.9 Neut % (Auto) 82.2 H Lymph % (Auto) 12.8 Kings % (Auto) 4.2 Eos % (Auto) 0.5 Baso % (Auto) 0.3 Neut # (Auto) 6.3 Lymph # (Auto) 1.0 Kings # (Auto) 0.3 Eos # (Auto) 0.0 Baso # (Auto) 0.0 Sodium 139 Potassium 3.3 L Chloride 94 L Carbon Dioxide 31 H Anion Gap 17.3 H BUN 16 Creatinine 0.60 Estimated Creat Clear 50 Estimated GFR 96 Est GFR ( Amer) 116 Glucose 191 H POC Glucose Calcium 9.6 Troponin I < 0.01 Urine Color Urine Appearance Urine pH Ur Specific [place] Urine Protein Urine Glucose (UA) Urine Ketones Urine Blood Urine Nitrate Urine Bilirubin Urine Urobilinogen Ur Leukocyte Esterase Urine WBC Ur Squamous Epith Cells Urine Bacteria SARS-CoV-2 IgG Ab (Rapid) Negative SARS-CoV-2 IgM Ab (Rapid) Negative 03/28/20 03/28/20 03/29/20 18:30 23:03 05:35 WBC RBC Hgb Hct MCV MCH MCHC RDW Plt Count MPV Neut % (Auto) Lymph % (Auto) Kings % (Auto) Eos % (Auto) Baso % (Auto) Neut # (Auto) Lymph # (Auto) Kings # (Auto) Eos # (Auto) Baso # (Auto) Sodium Potassium Chloride Carbon Dioxide Anion Gap BUN Creatinine Estimated Creat Clear Estimated GFR Est GFR ( Amer) Glucose POC Glucose 215 H 146 H Calcium Troponin I Urine Color Yellow Urine Appearance Clear Urine pH 7.0 Ur Specific [place] 1.020 Urine Protein 1+ Urine Glucose (UA) 1+ Urine Ketones Negative Urine Blood Negative Urine Nitrate Negative Urine Bilirubin Negative Urine Urobilinogen 0.2 Ur Leukocyte Esterase Trace Urine WBC 3-5 Ur Squamous Epith Cells Occasional Urine Bacteria Trace SARS-CoV-2 IgG Ab (Rapid) SARS-CoV-2 IgM Ab (Rapid) 03/29/20 03/29/20 03/29/20 10:57 17:04 21:11 WBC RBC Hgb Hct MCV MCH MCHC RDW Plt Count MPV Neut % (Auto) Lymph % (Auto) Kings % (Auto) Eos % (Auto) Baso % (Auto) Neut # (Auto) Lymph # (Auto) Kings # (Auto) Eos # (Auto) Baso # (Auto) Sodium Potassium Chloride Carbon Dioxide Anion Gap BUN Creatinine Estimated Creat Clear Estimated GFR Est GFR ( Amer)
[2020-03-30 11:46] LABS: POC Glucose,Bedside 198 (70-110)
--- NOTE | 2020-03-30 13:41 | PC.NURSE ---
Holter monitor placed by RT (Concepcion)
== END 2020-03-30 13:54 | disposition home or self-care (01) ==
LOC: ER 20:01 → 2ND 22:29
PROVIDERS: Admitting Provider Emergency Medicine; Emergency Provider Emergency Medicine; PCP Physician Assistant; Visit Provider Emergency Medicine
DX: R42 Dizziness and giddiness (principal); E11.9 Type 2 diabetes mellitus without complications; I10 Essential (primary) hypertension; Z79.84 Long term (current) use of oral hypoglycemic drugs
CPT/HCPCS: 36415; 70450; 71046; 80048; 81001; 82962; 84484; 85025; 86328; 93041; 93225; 93226; 96374; 96375; 96376; 99282; G0378; J2405

== ENCOUNTER → 2020-04-21 11:42 | Outpatient (CLI) | payer MEDICARE, SELFPAY ==
--- NOTE | 2020-04-21 | CA_ITS ---
APPROVED REPORT Exam: Pharmacologic Technologist: Amalia Cotto, Ht: 5 ft 6 in Wt: 155 lbs BSA: 1.79 m2 HR: 66 bpm BP: 173/67 mmHg Rhythm: SINUS RHYTHM WITH INTERMITTANT AFIB Medical History Medical History: HTN, Diabetic ??? Noninsulin Medications: Lisinopril,,,,, Metoprolol,,,,, Metformin,,,,, Glipizide,,,,, B12,,,,, PriMIDONE,,,,, Cardiac Risk Factors: HTN, Diabetes (non-insulin) Stress Test Details Test: LEXISCAN HR Resting HR: 74 bpm Max Heart Rate (APMHR): 140 bpm Max HR Achieved: 106 bpm Target HR (85% APMHR): 119 bpm % of APMHR: 75 Recovery HR: 89 bpm BP Resting BP: 173.0/67.0 mmHg Max BP: 199.0/56.0 mmHg Recovery BP: 165.0/63.0 mmHg ECG Resting ECG: SINUS RHYTHM WITH INTERMITTANT AFIB Clinical Exercise duration: 04:11 min Highest Stage Achieved: Stress ECG Conclusion LEXISCAN PORTION COMPLETED. PT C/O OF SOA AT PEAK INFUSION. NO CP. POSITIVE FOR SOA DURING PEAK INFUSION. OCCASIONAL PAC. OCCASIONAL PVC. VENTRICULAR BIGEMINY. LESS THAN 1.5MM ST DEPRESSION. IMAGES TO FOLLOW Test Summary REST . . . . . . . Sitting REST 03:42 . . 74 . 173/ 67 . . Stage 1 . . . . . . . Myoview Injected Stage 1 01:00 . . 84 . . . . Stage 2 01:00 . . 106 . 156/ 59 . . Stage 3 01:00 . . 87 . 162/ 62 . . Stage 4 01:00 . . 88 . . . . Stage 4 01:11 . . 88 . 168/ 64 . Stop exercise at 04:11 RECOVERY 01:00 . . 88 . . . . RECOVERY 02:00 . . 89 . . . . RECOVERY 03:00 . . 91 . 152/ 64 . . RECOVERY 04:00 . . 88 . 166/ 61 . . Electronically signed by : Idris Carrillo, 04/21/2020 14:49:42
--- NOTE | 2020-04-21 11:42 | NM_ITS ---
APPROVED REPORT Exam: Nuclear Stress Test Indication: DYSRHYTHMIA, HTN, D.M., FM HX, C.P., SOB, SYNCOPE, ABN EKG Patient Location: Outpatient Stress Tech: Jadyn Cotto NM Tech:Mildred Dejesus, ARRT RT (R)(N)(M) Ht: 5 ft 6 in Wt: 155 lbs Bra Size: B HR: 66 bpm BP: 173/67 mmHg BSA: 1.79 m2 BMI: 25.0 History: DYSRHYTHMIA, HTN, D.M., FM HX, C.P., SOB, SYNCOPE, ABN EKG Procedure: Patient received a 0.4 mg of intravenous Lexiscan, resting heart rate 66 bpm, resting blood pressure 173/67 mmHg, with Lexiscan maximum heart rate achived was 90 bpm which is Less than 85 % of the maximum predicted heart rate and blood pressure was 162/62 mmHg. Electrocardiogram Resting electrocardiogram showed sinus rhythm nonspecific ST-T changes, with Lexiscan there is less than 1.[address] segment depression noted from the baseline EKG. The EKG portion of the Lexiscan Myoview is nondiagnostic. Cardiac Stress and Resting SPECT Images: Cardiac Stress and Resting SPECT images were obtained using technetium 99m Myoview 31.4 mCi stress and 10.38 mCi at rest. Gated SPECT for the analysis of segmental wall motion and calculation of the ejection fraction also done. Cardiac stress and resting SPECT images show a fixed defect involving the posterolateral wall consistent with area of myocardial scarring without significant magdalena-infarct ischemia computer derived ejection fraction is 48% with moderate posterolateral wall hypokinesis, right ventricle is mildly enlarged with normal contractility. Conclusion: 1. The EKG portion of the Lexiscan Myoview is nondiagnostic. 2. Scintigraphic evidence of myocardial scarring involving the posterolateral wall without significant magdalena-infarct ischemia, computer derived ejection fraction is 48% with segmental wall motion abnormality described above, right ventricle is mildly enlarged with normal contractility. 3. Abnormal Lexiscan Myoview study. Electronically signed by : Idris Carrillo, 04/24/2020 18:53:43
--- NOTE | 2020-04-21 13:14 | CA_ITS ---
APPROVED REPORT EXAM: Comprehensive 2D, Doppler, and color-flow Echocardiogram Electronics Hardware Design Engineer: Court Back RDCS Ht: 5 ft 6 in Wt: 151lbs BSA: 1.77 BP: 160/80 mmHg Indications: PALPS,ABN HOLTER,DIZZINESS,HTN,HLP 2D Dimensions LVOT 1.45 cm (M/F) 1.5-2.5 M-Mode Dimensions RVDd 2.09 cm (0.9-2.6) LVDd 4.47 cm (3.5-5.7) LVDs 3.70 cm (3.5-5.7) IVSd 1.13 cm (0.6-1.1) PWd 1.13 cm (0.6-1.1) EF (Teich) 36.20% FS 17.20% EDV (Teich) 91.00 mL ESV (Teich) 58.10 mL LV Diastology E/A Ratio 0.57 Aortic Valve LVOT Max 102.00 (70-110 cm/s) LVOT VTI 19.99 cm Mitral Valve MV A Velocity 76.00 (40-130 cm/s) Left Ventricle Left atrium is mildly enlarged, left ventricle is normal size, mild concentric left ventricular hypertrophy, visually estimated ejection fraction 55% with no obvious regional wall motion abnormality, grade 1 diastolic dysfunction seen without tissue Doppler evidence of raise left atrial pressure. Right Ventricle Right atrium and right ventricle are normal size and contractility. Aortic Valve Aortic valve is minimally thickened and fibrosed, there is no aortic stenosis or aortic insufficiency. Mitral Valve Mitral valve leaflets are minimally thickened, there is mild mitral regurgitation. Tricuspid Valve Tricuspid valve is minimally thickened, there is mild tricuspid regurgitation, tricuspid regurgitation jet velocity is inadequate for calculation of the right ventricular systolic pressure. Pulmonic Valve Pulmonic valve is poorly visualized. Great Vessels Aortic root is normal size. Pericardium No significant pericardial effusion noted. Conclusion 1. Mildly enlarged left atrium, normal left ventricular size, mild concentric left ventricular hypertrophy, visually estimated ejection fraction 55% with no regional wall motion abnormality, endocardial surfaces are poorly visualized., Grade 1 diastolic dysfunction seen without tissue Doppler evidence of raise left atrial pressure. 2. Mild mitral and tricuspid regurgitation. 3. No significant pericardial effusion noted. Electronically signed by : Idris Carrillo 04/21/2020 14:49:13
== END ==
PROVIDERS: PCP Physician Assistant; Visit Provider Urology
DX: R94.31 Abnormal electrocardiogram [ECG] [EKG] (principal); R00.2 Palpitations
CPT/HCPCS: 78452; 93017; 93306; A9502; J2785

== ENCOUNTER 2020-05-09 10:19 | Day surgery (SDC) | payer MEDICARE, SELFPAY ==
[2020-05-09] VITALS (11 sets, daily range): BP systolic 112–219; BP diastolic 56–114; PULSE 55–83; RESP 16–20; TEMP 36.4; O2SAT 94–98; BMI 24.3
--- NOTE | 2020-05-09 08:35 | IR_ITS ---
APPROVED REPORT Patient Location: Outpatient Wreath Machine Operator: SARKIS Bob RT (R) PROCEDURES Left heart catheterization Left ventriculogram Selective coronary angiogram INDICATION Abnormal Myoview, Known coronary artery disease Informed consent was obtained prior to the procedure. COMPLICATIONS None Estimated Blood Loss: less than 10 ml TECHNIQUE One percent lidocaine used to anesthetize the right anterior aspect of the wrist. The right radial artery was accessed via the Seldinger technique. A 6 Occ[place] sheath was placed in the right radial artery. 2.5 mg of verapamil, 800 mcg of nitroglycerin, 1mg Lidocaine and 5000 U Heparin were given through the arterial sheath. The Poppa catheter was also used to perform left heart catheterization, left ventriculogram and selective coronary angiogram. At the end of the procedure the sheath was removed good hemostasis was achieved using Traclet band, patient was transferred to the postop holding area in stable condition. ANGIOGRAPHIC RESULTS The left main artery Has an ostial 10% stenosis The left anterior descending artery Has proximal 30 to 40% stenoses with additional mid vessel 40% stenoses followed by a mid vessel to distal focal 60% stenosis and a 2 mm vessel along a tortuous bend. The entire vessel has diffuse calcification is tortuous and small caliber in nature The circumflex artery Is a nondominant yet still large vessel giving rise to a single large first obtuse marginal artery. Proximally there are 10% stenoses. The large first obtuse marginal artery is 2.75 mm in diameter is tortuous and supplies a large amount of myocardium. This vessel has proximal 30% followed by 40% stenosis along tortuous bands The right coronary artery Is a dominant vessel and has proximal and mid vessel 10% luminal irregularities. The distal 2 large branches have diffuse 20% stenoses throughout The RIVERA ventriculogram reveals Preserved 60% The left ventricular end-diastolic pressure 15 mmHg IMPRESSION Coronary disease as described above Usually moderately diseased LAD throughout the proximal mid and distal segment as described above Mild to moderate disease as described above in the circumflex artery Preserved ejection fraction Mildly elevated LVEDP PLAN 1. Medical management 2. I am not in favor of revascularizing any of the LAD. This is a small caliber vessel. Although stents could be placed in this vessel due to its diffuse tortuosity and small caliber in nature it does not make additional stenting ideal. I would maximize medical management and antianginal medications and only proceed with coronary stenting if recalcitrant angina occurred 3. Aggressive risk factor modification Electronically signed by : Calixto Stevenson, 05/09/2020 14:26:24
[2020-05-09 11:01] LABS: Hematocrit 44.5 % (37.0-47.0); Lymphocytes # 0.9 K/mm3 (0.7-4.5); Lymphocytes % 25.5 % (10-50); Mean Corpuscular HGB Conc 33.6 g/dL (31.8-35.4); Mean Corpuscular Hemoglobin 28.7 pg (27.0-31.2); Mean Corpuscular Volume 85.5 fl (81-99); Mean Platelet Volume 8.4 fl (7.4-10.4); Monocytes # 0.4 K/mm3 (0.1-1.0); Monocytes % 10.1 % (1.7-9.3); Neutrophils # 2.1 K/mm3 (1.8-7.8); Neutrophils % 62.4 % (37.0-80.0); Platelet Count 143 K/mm3 (142-424); Red Cell Distribution Width 14.1 % (11.5-17.5); White Blood Count 3.4 K/mm3 (4.8-10.8)
[2020-05-09 11:03] LABS: Chloride 97 mmol/L (98-107); Potassium 4.1 mmoL/L (3.5-5.1); Sodium 139 mmol/L (136-145)
[2020-05-09 11:06] LABS: Blood Urea Nitrogen 15 mg/dl (7-17); Creatinine Clearance Estimated 49 mL/min (50-200); Estimated Glomerular Filt Rate 96 ml/min (>60); GFR (African American) 116 ML/MIN (>60)
[2020-05-09 11:07] LABS: Anion Gap 13.1 mEq/L (5-15); Calcium 9.5 mg/dl (8.4-10.2); Carbon Dioxide 33 mmol/L (22.0-30.0); Glucose 207 mg/dl (74-100)
[2020-05-09 11:34] LABS: Coronavirus 19 IgG Antibody Negative (Negative); Coronavirus 19 IgM Antibody Negative (Negative)
== END 2020-05-09 17:15 | disposition home or self-care (01) ==
LOC: CATHLAB 10:21
PROVIDERS: PCP Physician Assistant; Visit Provider Internal Medicine
DX: E11.8 Type 2 diabetes mellitus with unspecified complications (principal); E78.2 Mixed hyperlipidemia; I25.118 Atherosclerotic heart disease of native coronary artery with other forms of angina pectoris; R06.00 Dyspnea, unspecified; R94.31 Abnormal electrocardiogram [ECG] [EKG]; R94.39 Abnormal result of other cardiovascular function study; Z79.84 Long term (current) use of oral hypoglycemic drugs; Z79.899 Other long term (current) drug therapy
CPT/HCPCS: 80048; 85025; 86328; 93458; 99152; C1725; C1769; J1644

== ENCOUNTER → 2020-05-25 12:59 | Outpatient (CLI) | payer MEDICARE, SELFPAY ==
[2020-05-25 14:22] LABS: Chloride 97 mmol/L (98-107); Potassium 4.2 mmoL/L (3.5-5.1); Sodium 139 mmol/L (136-145)
[2020-05-25 14:25] LABS: Anion Gap 17.2 mEq/L (5-15); Blood Urea Nitrogen 23 mg/dl (7-17); Calcium 9.5 mg/dl (8.4-10.2); Carbon Dioxide 29 mmol/L (22.0-30.0); Estimated Glomerular Filt Rate 60 ml/min (>60); GFR (African American) 73 ML/MIN (>60); Glucose 100 mg/dl (74-100)
[2020-05-25 14:35] LABS: NT Pro Brain Natriuretic Pep. 1370 pg/mL (0-450)
== END ==
PROVIDERS: Visit Provider Internal Medicine Cardiovascular Disease
DX: E11.9 Type 2 diabetes mellitus without complications (principal); E78.5 Hyperlipidemia, unspecified; I25.10 Atherosclerotic heart disease of native coronary artery without angina pectoris; R06.00 Dyspnea, unspecified; R94.31 Abnormal electrocardiogram [ECG] [EKG]; Z79.84 Long term (current) use of oral hypoglycemic drugs
CPT/HCPCS: 36415; 80048; 83880

== ENCOUNTER → 2020-06-23 08:13 | Outpatient (CLI) | payer MEDICARE, SELFPAY ==
--- NOTE | 2020-06-23 08:13 | CT_ITS ---
PROCEDURE: CT CHEST WO CON CLINICAL INDICATION: dyspnea COMPARISON: No exams were available for comparison TECHNIQUE: Axial images obtained with sagittal and coronal reformats. All CT scans at the facility use one or more dose reduction, viz: automated exposure control, ma/kV adjustment per patient size (including targeted exams where dose is matched to indication, i.e. head), or iterative reconstruction technique. FINDINGS: HEART AND MEDIASTINAL STRUCTURES: There are coronary artery calcifications. There is mild cardiomegaly. No mediastinal or hilar mass is evident. There is minimal thickening of the pericardium posteriorly. LUNGS AND PLEURAL SPACES: Minimal atelectatic or fibrotic changes in the lung bases.. There is a 3 mm subpleural nodule in the left lower lobe posteriorly. BONY STRUCTURES: There is mild thoracic scoliosis convex right with mild degenerative changes in the thoracic spine. Mild kyphosis in the upper thoracic spine. The UPPER ABDOMEN: Gallstones are noted. There is mild splenomegaly. ADDITIONAL FINDINGS: No other significant abnormalities. IMPRESSION: 1. No acute finding. 2. Coronary artery calcifications are present with cardiomegaly. 3. Cholelithiasis. 4. Nonspecific 3 mm nodule left lower lobe, consider 12 month follow-up Dictated by: Torsten Esquivel MD 06/24/2020 10:53 Torsten Esquivel MD in [place] 06/24/2020 10:53
== END ==
PROVIDERS: PCP Physician Assistant; Visit Provider Internal Medicine Cardiovascular Disease
DX: E78.5 Hyperlipidemia, unspecified (principal); I10 Essential (primary) hypertension; I25.10 Atherosclerotic heart disease of native coronary artery without angina pectoris; R06.00 Dyspnea, unspecified
CPT/HCPCS: 71250

== ENCOUNTER 2020-07-24 14:47 | Inpatient (IN) | payer MEDICARE, SELFPAY ==
[2020-07-24] VITALS (8 sets, daily range): BP systolic 149–230; BP diastolic 65–121; PULSE 92–110; RESP 16–92; TEMP 36.7–36.9; O2SAT 92–95; BMI 24.3; BMI 24.4
--- NOTE | 2020-07-24 14:59 | HMH.EDFALL ---
ED Disposition Clinical Impression: Femoral neck fracture Qualifiers: Encounter type: initial encounter Fracture type: closed Laterality: left Qualified Code(s): S72.002A - Fracture of unspecified part of neck of left femur, initial encounter for closed fracture Disposition: Admitted As Inpatient Condition on Discharge: Good - Critical Care Critical Care Time: No Attestation: On , the high probability of a clinically significant, sudden or life threatening deterioration of the following system(s) required my full and direct attention, intervention and personal management. The time I documented below is in addition to time spent performing reported procedures but includes the following listed in this critical care notation. Medical Decision Making - Medical Records Medical records reviewed: Yes: I reviewed the patient's medical records. - Jose Inquiry Pt receiving controlled substance: No Vital Signs: 07/24/20 14:55 07/24/20 15:22 Temperature 98.0 F Temperature Source Oral Pulse Rate [Right Radial] 94 H 110 H Respiratory Rate 18 92 H Blood Pressure [Right Arm] 230/107 H 222/121 H Blood Pressure Mean [Right Arm] 148 154 Blood Pressure Source [Right Arm] Automatic Cuff Automatic Cuff Blood Pressure Position [Right Arm] Sitting Sitting 02 Sat by Pulse Oximetry 95 92 L Oxygen Delivery Method Room Air - Lab Data Lab Results 07/24/20 15:00: WBC 4.5 L, RBC 5.50 H, Hgb 16.2, Hct 47.8 H, MCV 87.0, MCH 29.5, MCHC 33.9, RDW 14.8, Plt Count 179, MPV 8.1, Neut % (Auto) 58.6, Lymph % (Auto) 33.6, [place] % (Auto) 6.8, Eos % (Auto) 0.4, Baso % (Auto) 0.6, Neut # (Auto) 2.6, Lymph # (Auto) 1.5, [place] # (Auto) 0.3, Eos # (Auto) 0.0, Baso # (Auto) 0.0 07/24/20 15:00: Sodium 136, Potassium 3.5, Chloride 95 L, Carbon Dioxide 25, Anion Gap 19.5 H, BUN 14, Creatinine 0.80, Estimated Creat Clear 49, Estimated GFR 69, Est GFR ( Amer) 84, Glucose 173 H, Calcium 9.9, Total Bilirubin 0.4, AST 36, ALT 24, Alkaline Phosphatase 78, Total Protein 8.6 H, Albumin 5.2 H, Globulin 3.4 H, Albumin/Globulin Ratio 1.5 Result diagrams: 07/24/20 15:00 07/24/20 15:00 Orders (Tests/Meds): ED MEDICATIONS Generic Name Dose Route Start Last Admin Trade Name Freq PRN Reason Stop Dose Admin Sodium Chloride 1,000 mls @ 250 mls/hr 07/24/20 15:30 07/24/20 15:15 Sod Chlor 0.9% 1000ml Bag IV 07/24/20 19:29 250 mls/hr .Q4H TACO Administration Discontinued Medications Generic Name Dose Route Start Last Admin Trade Name Freq PRN Reason Stop Dose Admin Acetaminophen 650 mg 07/24/20 15:10 Acetaminophen 325mg Tab PO 07/24/20 15:11 ONCE ONE Morphine Sulfate 2 mg 07/24/20 15:07 07/24/20 15:15 Morphine 2mg/Ml Syringe IV 07/24/20 15:08 2 mg ONCE ONE Administration Ondansetron HCl 4 mg 07/24/20 15:18 07/24/20 15:15 Ondansetron 4mg/2ml Vial IV 07/24/20 15:19 4 mg ONCE ONE Administration ORDERS Category Date Time Status Type and Screen Stat BBK 07/24/20 16:03 Ordered Covid-19 IgG/IgM ([facility]) Stat Lab 07/24/20 15:00 Received PT INR [Prothrombin Time INR] Stat Lab 07/24/20 15:00 Received PTT [Activated Partial Thrombo Time] Stat Lab 07/24/20 15:00 Received - Radiology Data #1 Image(s): Hip Image Reviewed: Yes I reviewed the patient's radiology results, Yes I reviewed the patient's radiology image Preliminary Findings: Abnormal Left-sided femoral neck fracture - Physician Consults Physician Consulted: Franco Time: 16:00 Reason -: Admission Additional Consult: Kashif Time: 16:00 Reason -: Orthopedic Eval/Care Medical Decision Narrative: 79-year-old female who presents after a fall outside a grocery store stating that she became unbalanced and was unable to catch her self. Landing on the left hip. She has not ambulated since the fall. Has an apparent deformity and tenderness over the left hip slightly externally rotated. Suspect proximal femur fracture. X-rays of the p
--- NOTE | 2020-07-24 15:06 | XR_ITS ---
PROCEDURE: XR HIP LT 2-3V W/PELVIS CLINICAL INDICATION: fall Posttraumatic pain COMPARISON: CR XR HIP RT 2-3V W/PELVIS from 07/05/2019 FINDINGS: Basicervical left femoral neck fracture is present with mild impaction and overlap of the fracture fragments. Femoral head is in place. IMPRESSION: Basicervical left femoral neck fracture with impaction of the fracture fragments Dictated by: Torsten Esquivel MD 07/24/2020 15:47 Torsten Esquivel MD in [place] 07/24/2020 15:47
--- NOTE | 2020-07-24 15:20 | PC.NURSE ---
pt gone to radiology
--- NOTE | 2020-07-24 15:31 | XR_ITS ---
PROCEDURE: XR CHEST AP CLINICAL HISTORY: PT FELL AT [employer]. Posttraumatic pain COMPARISON: CR CXR2V XR chest 2V from 12/26/2017 CR CXR2V XR chest 2V from 12/11/2018 CR XR CHEST 2V from 03/28/[address] CHEST WO CON from 06/23/2020 FINDINGS: Borderline cardiomegaly without failure. The lungs are clear without infiltrates, suspicious nodules, or pleural effusions. No acute bony abnormalities. IMPRESSION: No acute findings. Dictated by: Torsten Esquivel MD 07/24/2020 15:45 Torsten Esquivel MD in [place] 07/24/2020 15:45
--- NOTE | 2020-07-24 15:47 | PC.NURSE ---
Dr Thorne on with Dr Urbano.
[2020-07-24 16:13] LABS: Basophils % 0.6 % (0.1-2.0); Eosinophils % 0.4 % (0.1-12.0); Hematocrit 47.8 % (37.0-47.0); Hemoglobin 16.2 g/dL (12.2-16.2); Lymphocytes # 1.5 K/mm3 (0.7-4.5); Lymphocytes % 33.6 % (10-50); Mean Corpuscular HGB Conc 33.9 g/dL (31.8-35.4); Mean Corpuscular Hemoglobin 29.5 pg (27.0-31.2); Mean Platelet Volume 8.1 fl (7.4-10.4); Monocytes # 0.3 K/mm3 (0.1-1.0); Monocytes % 6.8 % (1.7-9.3); Neutrophils # 2.6 K/mm3 (1.8-7.8); Neutrophils % 58.6 % (37.0-80.0); Platelet Count 179 K/mm3 (142-424); Red Cell Distribution Width 14.8 % (11.5-17.5); White Blood Count 4.5 K/mm3 (4.8-10.8)
[2020-07-24 16:18] LABS: Chloride 95 mmol/L (98-107); Potassium 3.5 mmoL/L (3.5-5.1); Sodium 136 mmol/L (136-145)
[2020-07-24 16:20] LABS: Alanine Aminotransferase 24 U/L (12-78); Alkaline Phosphatase 78 U/L (38-126); Anion Gap 19.5 mEq/L (5-15); Aspartate Amino Transferase 36 U/L (14-36); Bilirubin,Total 0.4 mg/dl (0.2-1.3); Blood Urea Nitrogen 14 mg/dl (7-17); Carbon Dioxide 25 mmol/L (22.0-30.0); Creatinine Clearance Estimated 49 mL/min (50-200); Estimated Glomerular Filt Rate 69 ml/min (>60); GFR (African American) 84 ML/MIN (>60)
[2020-07-24 16:21] LABS: Albumin Level 5.2 g/dl (3.5-5.0); Albumin/Globulin Ratio 1.5 (1.1-1.8); Calcium 9.9 mg/dl (8.4-10.2); Globulin 3.4 g/dL (1.3-3.2); Glucose 173 mg/dl (74-100); Total Protein,Serum 8.6 g/dl (6.3-8.2)
[2020-07-24 16:31] LABS: Coronavirus 19 IgG Antibody Negative (Negative); Coronavirus 19 IgM Antibody Negative (Negative)
[2020-07-24 16:34] LABS: Activated Partial Thrombo Time 26.4 seconds (23.6-34.0); INR 0.96 (0.9-1.1); Prothrombin Time 10.7 seconds (9.4-11.8)
--- NOTE | 2020-07-24 18:02 | HMH.ORTHOCON ---
*Admission Date: 07/24/20 *Reason for consult:: L femoral neck fracture *History of present illness: 79-year-old female admitted through the ER after a fall earlier today at the grocery store. She was outside the store when she lost her balance and fell onto the left hip, directly onto the pavement. She denies LOC during the event and has no current neck pain. She denies any chest pain, shortness of breath or dizziness prior to the fall. Pain is localized to the left hip without numbness or tingling distally in the left lower extremity. No low back pain. Medical history includes diabetes, hypertension, coronary artery disease, hyperlipidemia. She recently saw Dr. Carrillo with cardiology on 07/07/20, at which time she was noted to have EF of 55%, diastolic dysfunction stable. She lives in a one-story home with her of 60 years. She does not require the use of a cane or walker for ambulation, but does note that her ambulation is limited. She used to walk a quarter of a mile to their mailbox but is unable to do this anymore. Her activity is mainly confined to the household and performing ADLs and housework. [facility] History I have reviewed the patient's past medical history: Yes Medical History: Reports:: Arrhythmia, Cancer, Coronary Artery Disease, Diabetes Mellitus Type 2, Hypertension Denies:: Diabetes Mellitus Type 1, Internal Pacemaker, MRSA, Seizures *Have you ever received a pneumonia vaccine?: No *Have you received a flu vaccine this season?: No Other Medical History: Reports: Cataracts. Denies: Blood Transfusion Reaction Other Surgeries: Yes: Cancer Surgery, Cardiac Catheterization, Dilation and Curettage, Skin Cancer Excision, Other (cataracts). No: Pacemaker Amputation: No Fractures: No - *Social History Smoking Status: Never smoker Alcohol Intake: never Alcohol Intake Frequency:: other Substance Use Type: denies use *Occupational Status:: retired Housing: house Household Members: spouse *Travel in the last 8 weeks: None Family Hx:: Heart Attack Review of Systems - Review of Systems Review of systems:: pertinent systems reviewed and negative unless documented below Meds Home Medications Medication Instructions Recorded Confirmed Type Lisinopril/Hydrochlorothiazide 1 each PO DAILY 03/28/20 07/24/20 History [Lisinopril-Hctz 20-25 mg Tab*] Metoprolol Succinate [Metoprolol 50 mg PO DAILY 05/09/20 07/24/20 History Succinate 50mg Tablet*] pioglitazone 15 mg tablet 15 mg PO DAILY tab 06/15/20 07/24/20 History cyanocobalamin (vitamin B-12) 1,000 mcg IM MONTHLY #1 ml 07/21/20 07/24/20 Rx 1,000 mcg/mL injection solution Metformin HCl [Glucophage] 1,000 mg PO BID 07/24/20 07/24/20 History Primidone 50 mg PO DIRECTED 07/24/20 07/24/20 History Topiramate 50 mg PO HS 07/24/20 07/24/20 History glipiZIDE [Glipizide ER] 10 mg PO BID 07/24/20 07/24/20 History Allergies Allergy/AdvReac Type Severity Reaction Status Date / Time No Known Allergies Allergy Verified 07/07/20 10:57 Exam Vital signs and Labs for Last 24 Hours: Temp Pulse Resp BP Pulse Ox 98.4 F 101 H 18 164/81 H 95 07/24/20 17:11 07/24/20 17:11 07/24/20 17:11 07/24/20 17:11 07/24/20 17:11 Laboratory Results - last 24 hr 07/24/20 15:00: SARS-CoV-2 IgG Ab (Rapid) Negative, SARS-CoV-2 IgM Ab (Rapid) Negative 07/24/20 15:00: WBC 4.5 L, RBC 5.50 H, Hgb 16.2, Hct 47.8 H, MCV 87.0, MCH 29.5, MCHC 33.9, RDW 14.8, Plt Count 179, MPV 8.1, Neut % (Auto) 58.6, Lymph % (Auto) 33.6, [place] % (Auto) 6.8, Eos % (Auto) 0.4, Baso % (Auto) 0.6, Neut # (Auto) 2.6, Lymph # (Auto) 1.5, [place] # (Auto) 0.3, Eos # (Auto) 0.0, Baso # (Auto) 0.0 07/24/20 15:00: Sodium 136, Potassium 3.5, Chloride 95 L, Carbon Dioxide 25, Anion Gap 19.5 H, BUN 14, Creatinine 0.80, Estimated Creat Clear 49, Estimated GFR 69, Est GFR ( Amer) 84, Glucose 173 H, Calcium 9.9, Total Bilirubin 0.4, AST 36, ALT 24, Alkaline Phosphatase 78, Total Protein 8.6 H, Albumin 5.2
[2020-07-24 18:14] LABS: POC Glucose,Bedside 166 (70-110)
[2020-07-24 22:24] LABS: POC Glucose,Bedside 268 (70-110)
[2020-07-25] VITALS (22 sets, daily range): BP systolic 93–157; BP diastolic 49–92; PULSE 59–91; RESP 14–18; TEMP 36.6–43; O2SAT 92–99; BMI 24.3
[2020-07-25 06:19] LABS: POC Glucose,Bedside 237 (70-110)
--- NOTE | 2020-07-25 06:24 | PC.NURSE ---
pt has rested well t/o shift, complained of pain one time and was treated per MAR, pt states that she has no pain unless she moves, remains on room air, O2 sats 92-96%, HR 90-104
--- NOTE | 2020-07-25 07:00 | CA_ITS ---
APPROVED REPORT EXAM: Comprehensive 2D, Doppler, and color-flow Echocardiogram Supervisor Wet End: Stephanie Ramos RT(R) Ht: 5 ft 6 in Wt: 151lbs BSA: 1.77 BP: 164/81 mmHg Indications: Left femoral neck fracture, preop clearance, HTN, hyperlipidemia, DM M-Mode Dimensions RVDd 1.92 cm (0.9-2.6) LVDd 4.06 cm (3.5-5.7) LVDs 3.28 cm (3.5-5.7) IVSd 1.17 cm (0.6-1.1) PWd 0.96 cm (0.6-1.1) EF (Teich) 40.00% FS 19.20% EDV (Teich) 72.50 mL ESV (Teich) 43.50 mL LV Diastology E Decel Time 263.00 (160-240 msec) E/A Ratio 0.6 MED E' 7.00 (< 7 cm/sec) E'/MED E' Ratio 7.64 (>14) LAT E' 5.20 (<10 cm/sec) E/LAT E' Ratio 10.29 (>14) Mitral Valve MV E Max Kemar. 54.00 (40-130 cm/s) MV A Velocity 85.00 (40-130 cm/s) E/A Ratio 0.63 MV Decel. Time 263.00 (160-240 ms) MV PHT 77.00 ms Left Ventricle Technically difficult study because of the patient factors and poor acoustic windows. Left atrium is mildly enlarged, left ventricle is normal size, mild concentric left ventricular hypertrophy, visually estimated ejection fraction approximately 45%, there is marked hypokinesis involving the inferior and inferior basal wall. Grade 1 diastolic dysfunction seen without tissue Doppler evidence of raise left atrial pressure. Right Ventricle Right atrium and right ventricular normal size and contractility. Aortic Valve Aortic valve is thickened and calcified leaflet continue to display good mobility, there is no aortic stenosis or aortic insufficiency. Mitral Valve Mitral valve leaflets are minimally thickened, there is mild mitral regurgitation. Tricuspid Valve Tricuspid valve is grossly normal, there is mild tricuspid regurgitation. Pulmonic Valve Pulmonic valve is poorly visualized. Great Vessels Aortic root is normal size. Pericardium No significant pericardial effusion noted. Conclusion 1. Mildly enlarged left atrium, normal left ventricular size, mild concentric left ventricular hypertrophy, visually estimated ejection fraction 45% with segmental wall motion abnormality described above, grade 1 diastolic dysfunction seen without tissue Doppler evidence of raise left atrial pressure. Technically difficult study endocardial surfaces are poorly visualized. 2. Mild mitral and tricuspid regurgitation. 3. No significant pericardial effusion noted. Electronically signed by : Idris Carrillo, 07/26/2020 05:48:25
[2020-07-25 07:14] LABS: Basophils % 0.3 % (0.1-2.0); Eosinophils % 0.2 % (0.1-12.0); Hematocrit 39.2 % (37.0-47.0); Lymphocytes # 0.5 K/mm3 (0.7-4.5); Lymphocytes % 6.7 % (10-50); Mean Corpuscular HGB Conc 33.5 g/dL (31.8-35.4); Mean Corpuscular Hemoglobin 28.8 pg (27.0-31.2); Monocytes # 0.6 K/mm3 (0.1-1.0); Monocytes % 7.2 % (1.7-9.3); Neutrophils # 6.5 K/mm3 (1.8-7.8); Neutrophils % 85.7 % (37.0-80.0); Platelet Count 154 K/mm3 (142-424); Red Blood Count 4.55 M/mm3 (4.20-5.40); Red Cell Distribution Width 14.3 % (11.5-17.5); White Blood Count 7.6 K/mm3 (4.8-10.8)
--- NOTE | 2020-07-25 07:18 | P.CONPHA_ITS ---
[facility] Pharmacy VTE Monitoring - Patient Demographics Admission date: 07/24/20 Report Date: 07/25/20 Time: 07:18 Allergies/Adverse Reactions: Patient Allergies No Known Allergies Allergy (Verified 07/07/20 10:57) Height: 1.68 m Weight: 68.691 kg Patient Problems: Current Active Problems Femoral neck fracture (Acute) CAD (coronary artery disease) (Chronic) HLD (hyperlipidemia) (Chronic) HTN (hypertension) (Chronic) Diabetes (Chronic) - VTE Risk Labs: VTE Related Lab Results Hgb 16.2 g/dL (12.2-16.2) 07/24/20 15:00 Hct 47.8 % (37.0-47.0) H 07/24/20 15:00 Plt Count 179 K/mm3 (142-424) 07/24/20 15:00 PT 10.7 seconds (9.4-11.8) 07/24/20 15:00 INR 0.96 (0.9-1.1) 07/24/20 15:00 APTT 26.4 seconds (23.6-34.0) 07/24/20 15:00 BUN 14 mg/dl (7-17) 07/24/20 15:00 Creatinine 0.80 mg/dl (0.52-1.04) 07/24/20 15:00 Estimated Creat Clear 49 mL/min (50-200) 07/24/20 15:00 Was VTE Risk Assessment Performed: Yes VTE Score: 3 VTE Risk Level: Low Risk - Prophylaxis VTE Prophylaxis Ordered?: Yes Types of VTE Prophylaxis: IPCS Thigh High Location of Applied Device: Bilateral Lower Extremeties
[2020-07-25 07:22] LABS: MANUAL DIFFERENTIAL MANUAL DIFFERENTIAL (MANUAL DIFF)
--- NOTE | 2020-07-25 07:24 | PC.NURSE ---
Krissy Handy notified of cardiology consult
[2020-07-25 07:25] LABS: Hemoglobin 13.1 g/dL (12.2-16.2)
[2020-07-25 07:33] LABS: Chloride 96 mmol/L (98-107); Potassium 3.8 mmoL/L (3.5-5.1); Sodium 132 mmol/L (136-145)
[2020-07-25 07:36] LABS: Anion Gap 11.8 mEq/L (5-15); Blood Urea Nitrogen 20 mg/dl (7-17); Carbon Dioxide 28 mmol/L (22.0-30.0); Creatinine Clearance Estimated 49 mL/min (50-200); Estimated Glomerular Filt Rate 69 ml/min (>60); GFR (African American) 84 ML/MIN (>60); Glucose 248 mg/dl (74-100)
--- NOTE | 2020-07-25 08:13 | HMH.PHAINT ---
home medication list completed using list from home pharmacy and cardiology office
--- NOTE | 2020-07-25 08:28 | HMH.CNCARD ---
History of Present Illness Consult date: 07/25/20 Requesting physician: Kris Gamez Consult reason: pre-op evaluation Chief complaint: left hip pain History of present illness: Is an 79-year-old white female who presented to the emergency department after a fall outside of the grocery store. The patient states that she became unbalanced and she was unable to catch her balance and fell. The patient landed on her left hip. The patient states that she was not dizzy and had no chest pain or shortness of breath at the time of the fall. After falling the patient was unable to ambulate and had a deformity to her left hip area with tenderness and pain. She came into the emergency department and was found to have a basocervical left femoral neck fracture with impaction of the fracture fragments. Orthopedics has been consulted and the patient will proceed with surgical intervention today. She denies any chest pain or pressure. She denies any shortness of breath or edema. She denies any dizziness. She denies any fever, chills, nausea, vomiting, diarrhea, PND or orthopnea. She does state that she was a little bit nauseated this morning because of the pain but she got nausea medicines and her nausea has now resolved. Her only complaint this morning is left hip pain which she states is well controlled with pain medications. Patient had recent left cardiac catheterization with no percutaneous intervention. She does have moderate disease to her LAD but revascularization was not indicated at this time. Her preliminary echocardiogram shows a normal ejection fraction no significant valvular disease. [facility] History I have reviewed the patient's past medical history: Yes Medical History: Reports:: Arrhythmia, Cancer, Coronary Artery Disease, Diabetes Mellitus Type 2, Hyperlipidemia, Hypertension Denies:: Diabetes Mellitus Type 1, Internal Pacemaker, MRSA, Seizures *Have you ever received a pneumonia vaccine?: Yes *Have you received a flu vaccine this season?: Yes Other Medical History: Reports: Arthritis, Cataracts, Hypothyroidism. Denies: Blood Transfusion Reaction Other Surgeries: Yes: Cancer Surgery (nose), Cardiac Catheterization, Dilation and Curettage, Skin Cancer Excision, Other (cataracts). No: Pacemaker Amputation: No Fractures: No - *Social History Last grade of school completed: High school graduate Smoking Status: Never smoker Alcohol Intake: never Alcohol Intake Frequency:: other Substance Use Type: denies use *Occupational Status:: retired Housing: house Household Members: spouse *Travel in the last 8 weeks: None Family Hx:: Cancer, Heart Attack Meds Home Medications Medication Instructions Recorded Confirmed Type Lisinopril/Hydrochlorothiazide 1 each PO DAILY 03/28/20 07/25/20 History [Lisinopril-Hctz 20-25 mg Tab*] Metoprolol Succinate [Metoprolol 50 mg PO DAILY 05/09/20 07/24/20 History Succinate 50mg Tablet*] pioglitazone 15 mg tablet 15 mg PO DAILY tab 06/15/20 07/24/20 History cyanocobalamin (vitamin B-12) 1,000 mcg IM MONTHLY #1 ml 07/21/20 07/24/20 Rx 1,000 mcg/mL injection solution Metformin HCl [Glucophage] 1,000 mg PO BID 07/24/20 07/24/20 History Primidone 200 mg PO BID 07/24/20 07/25/20 History Topiramate 50 mg PO HS 07/24/20 07/24/20 History glipiZIDE [Glipizide ER] 10 mg PO BID 07/24/20 07/24/20 History Spironolactone [Spironolactone 25 mg PO DAILY 07/25/20 07/25/20 History 25mg Tablet] Allergies Allergy/AdvReac Type Severity Reaction Status Date / Time No Known Allergies Allergy Verified 07/07/20 10:57 Exam Vital signs and Labs for Last 24 Hours: Temp Pulse Resp BP Pulse Ox 97.8 F 89 16 136/64 97 07/25/20 08:00 07/25/20 08:00 07/25/20 08:00 07/25/20 08:00 07/25/20 08:00 Laboratory Results - last 24 hr 07/24/20 15:00: SARS-CoV-2 IgG Ab (Rapid) Negative, SARS-CoV-2 IgM Ab (Rapid) Negative 07/24/20 15:00: WBC 4.5 L, RBC 5.50 H, Hgb 16.2, Hct 47.8 H, MCV 87.0, MC
--- NOTE | 2020-07-25 08:32 | HMH.HP ---
*Admission Date: 07/24/20 *Chief complaint: Fall *History of present illness: 79-year-old female patient presents to the emergency department after a fall outside of a grocery store while shopping. She reports she was walking, became unbalanced and fell to the pavement. She reports landing on her hip and feeling pain immediately. She denies hitting her head, loss of consciousness, chest pain, shortness of breath, or any dizziness at time of fall. She denies any neck or lower back pain. In the emergency department she received morphine which controlled her pain, Zofran for nausea, and IV fluids. She does have a medical history of diabetes, HTN, atypical angina, tremor, and dyspnea. She is currently lying in bed respirations easy and even, she reports her pain is under control. Discussed surgery, length of stay, and length of stay at rehab facility. She denies any new medical problems and is seen by [facility] primary care. She is currently living in a 1 story home with her of 60 years, she does not require the use of a cane or walker for ambulation but does report decreased ambulation Orthopedics was consulted and plan for a L hip hemiarthroplasty today, she has been n.p.o. since midnight. Cardiology was also consulted for cardiac clearance for surgery 07/24/20 L Hip XR: IMPRESSION: Basicervical left femoral neck fracture with impaction of the fracture fragments Dictated by: Alvin, 07/24/20 CXR: IMPRESSION: No acute findings. Dictated by: Alvin Patient is acceptable risk for surgery from a Medical standpoint to proceed with left hip surgery, Cardiac clearance. [facility] History I have reviewed the patient's past medical history: Yes Medical History: Reports:: Arrhythmia, Cancer, Coronary Artery Disease, Diabetes Mellitus Type 2, Hyperlipidemia, Hypertension Denies:: Diabetes Mellitus Type 1, Internal Pacemaker, MRSA, Seizures *Have you ever received a pneumonia vaccine?: Yes *Have you received a flu vaccine this season?: Yes Other Medical History: Reports: Arthritis, Cataracts, Hypothyroidism. Denies: Blood Transfusion Reaction Other Surgeries: Yes: Cancer Surgery (nose), Cardiac Catheterization, Dilation and Curettage, Skin Cancer Excision, Other (cataracts). No: Pacemaker Amputation: No Fractures: No - *Social History Last grade of school completed: High school graduate Smoking Status: Never smoker Alcohol Intake: never Alcohol Intake Frequency:: other Substance Use Type: denies use *Occupational Status:: retired Housing: house Household Members: spouse *Travel in the last 8 weeks: None Family Hx:: Cancer, Heart Attack Review of Systems - Review of Systems Review of systems:: pertinent systems reviewed and negative unless documented below - Constitutional Denies anorexia, Denies fever(s) - Eyes Denies blind spots, Denies blurry vision - ENT Denies abnormal hearing, Denies ear pain - *Cardiovascular Denies chest pain, Denies shortness of breath - *Respiratory Denies chest congestion, Denies cough - *Gastrointestinal Denies abdominal pain, Denies change in stools - *Musculoskeletal Reports abnormal walking, Reports deformity, Reports limited joint movement, Denies numbness, Denies tingling - Integumentary/Breasts Denies hair loss, Denies yellowing of the skin - *Neurologic Reports abnormal walking, Denies headache(s), Denies numbness - Psychiatric Denies lack of enjoyment, Denies anxiety - Endocrine Denies cold intolerance, Denies rapid, pounding, or irregular heartbeat - Hematologic/Lymphatic Denies easy bleeding, Denies easy bruising - Allergic/Immunologic Denies GI upset with certain foods, Denies throat swelling Meds Home Medications Medication Instructions Recorded Confirmed Type Lisinopril/Hydrochlorothiazide 1 each PO DAILY 03/28/20 07/25/20 History [Lisinopril-Hctz 20-25 mg Tab*] Metoprolol Succinate [Metoprolol 50 mg PO DAILY 05/09/20 1
[2020-07-25 08:41] LABS: Lymphocytes % 13 % (10-50); Monocytes % 3 % (2-9); Neutrophils % 82 % (42-76); Platelet Estimate Normal; RBC Morphology Normal; Total Cells Counted 100
--- NOTE | 2020-07-25 10:01 | SW/DCPLANNER ---
Addendum entered by [facility] 07/27/20 09:06: Alejandra has stated this patient is fine to discharge today once discharge information is faxed. Addendum entered by [facility] 07/27/20 08:36: Patients COVID is NEGATIVE and has been faxed to Alejandra at [facility]. I have also updated Alejandra on patients med changes: pain rx for percocet, Cefdinir PO for 5 more days and Lovenox. Alejandra running a final cost report then will follow up with me. Patient concurs with discharge to [facility] today. Addendum entered by [facility] 07/26/20 12:01: Per Sarita at [facility] they can accept this patient tomorrow pending negative covid. COVID has been ordered today. Sarita is fine with patient discharging with IV Rocephin for UTI but has requested that peripheral IV be left in for antibiotics due to waiting for urine culture. I will relay this message to nursing as well. Patient concurs with this plan and was present at time of our conversation. Addendum entered by [facility] 07/26/20 09:18: Sarita mitzi [facility] is currently reviewing patient information at this time. Updated patient information has been faxed. Addendum entered by [facility] 07/25/20 16:19: Alejandra with [facility] has called back stating she will have a bed open tomorrow morning. Patient information has been faxed to [facility]. I will follow up with Alejandra and patient/family tomorrow morning. Patient is having surgery today. Original Note: This patient was admitted yesterday with a hip fx. Patient stated that she was having surgery today. I spoke with this patient regarding discharge plans: patient would prefer to discharge home but understands that she may need placement at time of discharge. Patient stated that she would want to go to [facility] if placement was necessary at discharge: Alejandra cartagena [facility] has stated that they currently do not have any open beds. I will continue to follow up with this patient and her family once surgery is complete.
--- NOTE | 2020-07-25 10:13 | HMH.ORTHPN ---
Subjective Date: 07/25/20 Time: 08:30 Principal diagnosis: L femoral neck fracture Interval history: The patient is doing well this morning, though she has had some nausea. She is n.p.o. after midnight for surgery later today. PN: Obj Ex Vital signs: Temp Pulse Resp BP Pulse Ox 97.8 F 89 16 136/64 97 07/25/20 08:00 07/25/20 08:00 07/25/20 08:00 07/25/20 08:00 07/25/20 08:00 - Constitutional no acute distress - Routine HEENT Exam Head: Present: normocephalic Eye: Present: EOMI ENT: Present: mucous membranes moist - Routine Neck Exam Present: trachea midline - Routine Respiratory Exam Absent: respiratory distress, wheezes - Routine Cardiovascular Exam Present: RRR - Routine Abdominal Exam Present: soft - Routine Extremities Exam Comments: LLE shortened and externally rotated no bruising or open wounds L hip +DF/PF/EHL LLE SILT distally LLE in all distributions L calf soft, non-tender palpable pedal pulses LLE, foot pink/warm - Routine Skin Exam Present: intact, warm - Routine Neurological Exam Present: alert, oriented X3, moving all extremities, normal tone, vision grossly intact, hearing grossly intact, normal speech. Absent: sensory deficit, motor deficit, altered mental status - Routine Psychiatric Exam Present: normal affect Progress Note: A&P (1) Femoral neck fracture Status: Acute (2) CAD (coronary artery disease) Status: Chronic (3) Diabetes Status: Chronic (4) HLD (hyperlipidemia) Status: Chronic (5) HTN (hypertension) Status: Chronic Assessment and Plan for All Diagnoses:: 79yo F with L femoral neck fracture -- to OR later today for L hip hemiarthroplasty -- remain NPO -- IV antibiotics on hold to OR later today -- further orders pending post-op
--- NOTE | 2020-07-25 16:24 | P.PN_ITS ---
[facility] Anesthesia Checklist - Patient Identification Patient Identification: Arm Band - Structural Data Admitted From: Inpatient Planned Operative Procedure/s: left hip hemiarthroplasty Consent for Planned Operative Procedure(s) Verified: Yes Verified Documents: Surgical Consent, History and Physical, Cardiac Clearance - Additional verifications Anesthesia Reactions: No Hx Blood Transfusions: No Blood Transfusion Reaction: No - Airway Assessment C-Spine Mobility Assessed: Yes (mp2) TMJ Mobility Assessed: Yes Dentition: Dentures-good fit - Neurological Assessment Level of Consciousness: Awake, Alert - Anesthesia Plan Anesthesia Risk discussed: Yes Anesthesia Plan: Verified ASA Class: III Anesthesia Type: MAC w/Spinal [facility] History I have reviewed the patient's past medical history: Yes Medical History: Reports:: Arrhythmia, Cancer, Coronary Artery Disease, Diabetes Mellitus Type 2, Hyperlipidemia, Hypertension Denies:: Diabetes Mellitus Type 1, Internal Pacemaker, MRSA, Seizures *Have you ever received a pneumonia vaccine?: Yes *Have you received a flu vaccine this season?: Yes Other Medical History: Reports: Arthritis, Cataracts, Hypothyroidism. Denies: Blood Transfusion Reaction Anesthesia experience/problems:: nac Other Surgeries: Yes: Cancer Surgery (nose), Cardiac Catheterization, Dilation and Curettage, Skin Cancer Excision, Other (cataracts). No: Pacemaker Amputation: No Fractures: No - *Social History Last grade of school completed: High school graduate Smoking Status: Never smoker Alcohol Intake: never Alcohol Intake Frequency:: other Substance Use Type: denies use *Occupational Status:: retired Housing: house Household Members: spouse *Travel in the last 8 weeks: None Family Hx:: Cancer, Heart Attack
--- NOTE | 2020-07-25 16:25 | HMH.ANESI ---
[facility] Anesthesia Record Part I Intake, IV Amount: 1,800 Estimated blood loss (mL): 100 Urine output (mL): 100 Blood Pressure: 96/49 SaO2: 95 Pulse Rate: 67 Respiratory Rate: 16 Temperature: 98.8 F Patient is:: Drowsy, Stable Stable to PACU at:: 16:20
--- NOTE | 2020-07-25 16:31 | XR_ITS ---
PROCEDURE: XR HIP LT 2-3V W/PELVIS CLINICAL INDICATION: s/p L hip rashida Follow-up left hip hemiarthroplasty COMPARISON: CR XR HIP LT 2-3V W/PELVIS from 07/24/2020 FINDINGS: Status post left hip hemiarthroplasty. There is good alignment. Postsurgical gas noted. Mi catheter is present. IMPRESSION: Status post left hip hemiarthroplasty with good alignment Dictated by: Torsten Esquivel MD 07/25/2020 17:58 Torsten Esquivel MD in [place] 07/25/2020 17:58
--- NOTE | 2020-07-25 16:35 | PC.NURSE ---
radiology at bedside getting post op xrays
[2020-07-25 16:39] LABS: POC Glucose,Bedside 252 (70-110)
--- NOTE | 2020-07-25 16:39 | HMH.OPNOTE ---
Date of procedure: 07/25/20 Pre-op Diagnosis:: L femoral neck fracture Post-op Diagnosis:: L femoral neck fracture Procedure performed:: L hip hemiarthroplasty Surgeon:: Helen Thorne MD Freight Brake Operator(s):: Cabrera Grossman TELEVISION HOST:: Francesco Dutton Anesthesia: MAC, spinal Estimated blood loss (mL): 100 Clinical Note:: 79-year-old female admitted through the ER yesterday after a fall earlier in the day at the grocery store. She was outside the store when she lost her balance and fell onto the left hip, directly onto the pavement. She denies LOC during the event and has no current neck pain. She denies any chest pain, shortness of breath or dizziness prior to the fall. Pain is localized to the left hip without numbness or tingling distally in the left lower extremity. No low back pain. Medical history includes diabetes, hypertension, coronary artery disease, hyperlipidemia. She recently saw Dr. Carrillo with cardiology on 07/07/20, at which time she was noted to have EF of 55%, diastolic dysfunction stable. She lives in a one-story home with her of 60 years. She does not require the use of a cane or walker for ambulation, but does note that her ambulation is limited. She used to walk a quarter of a mile to their mailbox but is unable to do this anymore. Her activity is mainly confined to the household and performing ADLs and housework. X-rays of the left hip revealed a displaced femoral neck fracture. I discussed treatment options with the patient, including both operative and nonoperative interventions. I discussed the risk of nonoperative treatment, including persistent pain, inability or difficulty with ambulation, pressure ulcers, DVT/PE, pneumonia, UTI, and other consequences of bed confinement. I also discussed the risk of surgical treatment. Specifically I discussed the options of hemiarthroplasty versus total hip arthroplasty. After discussion of the patient's activity level and goal to return home and perform ADLs independently, we have decided to proceed with hemiarthroplasty. I discussed the risks of the surgery, including bleeding, infection, intra-operative femur fracture, component loosening/subsidence, neurovascular damage, foot drop, hip abductor weakness, component dislocation and need for revision surgery, in addition to the risks of anesthesia which include but are not limited to heart attack, stroke and even . The patient is in agreement with this plan, all questions were answered, informed consent was obtained. Operative findings:: Components: [employer] Sy[employer] femoral stem, size 13 standard neck bipolar shell 48mm; 28 +4 CoCr head Operative note:: The patient was identified in preoperative holding and the L hip signed by myself. I reviewed the consent with the patient and her and answered all questions. The patient was then taken to the operating room where spinal anesthetic was administered with the patient on her cart. Intravenous sedation was given and the patient transferred to the operative table and placed in the right lateral debuitus position with a rasheed bag positioner. The unaffected right leg was well-padded and both upper extremities padded and protected on an arm gilbert. 1g Ancef was infused intravenously and the left hip prepped and draped in the usual sterile fashion. Timeout was performed, identifying the correct patient, correct procedure and correct site. The procedure was begun by making a longitudinal, curvilinear incision over the posterolateral aspect the the left hip, centered over the greater trochanter. Subcutaneous tissue was dissected with cautery until fascia was encountered. The fascia was incised in line with the shaft of the femur distally and curved proximally; fibers of the gluteus anya were bluntly spread with finger dissection. Charnley retractor was placed under the fascia. The hip joint was visualized and there was moderate fracture hematoma present. Thi
--- NOTE | 2020-07-25 16:50 | HMH.ORTHPN ---
Subjective Date: 07/25/20 Time: 16:45 Principal diagnosis: L femoral neck fracture Interval history: The patient underwent L hip hemiarthroplasty this afternoon without complication. EBL 100cc. PN: Obj Ex Vital signs: Temp Pulse Resp BP Pulse Ox 98.8 F 67 16 96/49 L 97 07/25/20 16:26 07/25/20 16:26 07/25/20 16:26 07/25/20 16:26 07/25/20 08:00 - Constitutional no acute distress - Routine HEENT Exam Head: Present: normocephalic Eye: Present: EOMI ENT: Present: mucous membranes moist - Routine Neck Exam Present: trachea midline - Routine Respiratory Exam Absent: respiratory distress, wheezes - Routine Cardiovascular Exam Present: RRR - Routine Abdominal Exam Present: soft - Routine Exam Comments: alberto to gravity - Routine Extremities Exam Comments: L hip dressings c/d/i w/o strikethrough sensation/motion LLE impaired due to presence of spinal anesthetic L calf soft, non-tender palpable pedal pulses LLE, foot pink/warm - Routine Skin Exam Present: warm Progress Note: A&P (1) Femoral neck fracture Status: Acute (2) CAD (coronary artery disease) Status: Chronic (3) Diabetes Status: Chronic (4) HLD (hyperlipidemia) Status: Chronic (5) HTN (hypertension) Status: Chronic Assessment and Plan for All Diagnoses:: 79yo F POD 0 s/p L hip hemiarthroplasty for FNF -- may be OOB as tolerated with assist; WBAT LLE -- PT/OT to eval. Posterior hip precautions, abduction pillow. -- SCD RLE -- encourage IS 10x/hr while awake -- ice pack L hip as needed -- DVT prophy: lovenox to start tomorrow -- finish 24hr IV antibiotic prophylaxis -- pain control; po/IV meds ordered PRN -- care management consult for dispo planning
[2020-07-25 17:40] LABS: Microscopic,Cath URINE MICROSCOPIC (MICROSCOPIC)
[2020-07-25 19:18] LABS: Appearance,Urine/Cath CLEAR (Clear); Bilirubin,Cath Negative (Negative); Blood, Urine/Cath Negative (Negative); Color,Urine/Cath YELLOW (Yellow); Glucose,Urine/Cath (UA) 2+ (Negative); Ketones,Urine/Cath 2+ (Negative); Leukocyte Esterase,Cath Negative (Negative); Nitrate,Cath POSITIVE (Negative); Protein,Urine/Cath TRACE (Negative); Specific Gravity, Urine/Cath >= 1.030 (1.005-1.030); Urobilinogen,Cath 0.2 EU/dl (0.2)
[2020-07-25 19:54] LABS: Bacteria,Urine/Cath 3+ /lpf
[2020-07-26] VITALS (9 sets, daily range): BP systolic 120–176; BP diastolic 65–88; PULSE 59–94; RESP 18–22; TEMP 36.4–37.1; O2SAT 94–100; BMI 23.8; BMI 23.7
[2020-07-26 00:59] LABS: POC Glucose,Bedside 276 (70-110)
--- NOTE | 2020-07-26 04:24 | PC.NURSE ---
Pt is A&Ox4. Pt has had no c/o hip pain this shift. Lung sounds clear, pt weaned off of 2L NC post-op. o2 sats in the mid to upper 90's. IS used hourly during awake hours. IS @ best 500cc. Abductor wedge in place. Lt hip dressing remains CDI. RT SCD remains in place. PIV in RAC remains patent and continues to infuse LR @ 50 ml/hr. Active bowel sounds in all 4 quads, no BM noted this shift. Mi remains patent and is draining clear, light randell urine per gravity. No other acute changes or complaints at this time. Will continue to monitor.
[2020-07-26 06:14] LABS: Chloride 97 mmol/L (98-107); Hematocrit 39.5 % (37.0-47.0); Hemoglobin 13.7 g/dL (12.2-16.2); Lymphocytes # 0.6 K/mm3 (0.7-4.5); Lymphocytes % 5.9 % (10-50); Mean Corpuscular HGB Conc 34.6 g/dL (31.8-35.4); Mean Corpuscular Volume 86.6 fl (81-99); Mean Platelet Volume 9.5 fl (7.4-10.4); Monocytes # 0.7 K/mm3 (0.1-1.0); Monocytes % 6.9 % (1.7-9.3); Neutrophils # 9.4 K/mm3 (1.8-7.8); Neutrophils % 87.2 % (37.0-80.0); Platelet Count 152 K/mm3 (142-424); Potassium 4.1 mmoL/L (3.5-5.1); Red Blood Count 4.56 M/mm3 (4.20-5.40); Red Cell Distribution Width 14.6 % (11.5-17.5); Sodium 133 mmol/L (136-145); White Blood Count 10.8 K/mm3 (4.8-10.8)
[2020-07-26 06:17] LABS: Anion Gap 19.1 mEq/L (5-15); Blood Urea Nitrogen 30 mg/dl (7-17); Carbon Dioxide 21 mmol/L (22.0-30.0); Creatinine Clearance Estimated 48 mL/min (50-200); Estimated Glomerular Filt Rate 60 ml/min (>60); GFR (African American) 73 ML/MIN (>60); MANUAL DIFFERENTIAL MANUAL DIFFERENTIAL (MANUAL DIFF)
[2020-07-26 06:18] LABS: Glucose 284 mg/dl (74-100)
[2020-07-26 06:36] LABS: POC Glucose,Bedside 293 (70-110)
--- NOTE | 2020-07-26 08:11 | HMH.ANESII ---
[facility] Anesthesia Record Part II Discharge Time: 16:50 Destination: Medical Surgical Department PACU nurse assessment reviewed?: Yes Patient Condition:: Good Anesthesia Complications:: None Swallowing reflex intact?: Yes Cyanosis?: No Blood Pressure: 120/84 Pulse Rate: 59 Temperature: 98.5 F Mental Status: Alert & Oriented Pain level:: 0 Nausea and/or vomitting:: None Intake, IV Amount: 0
[2020-07-26 08:18] LABS: Lymphocytes % 6 % (10-50); Monocytes % 7 % (2-9); Neutrophils % 87 % (42-76); Platelet Estimate Normal; RBC Morphology Normal; Total Cells Counted 100
--- NOTE | 2020-07-26 08:29 | HMH.ACPN2 ---
Internal Medicine - PN: Subj *Date: 07/26/20 *Time: 09:04 Interval history: 79-year-old female patient sitting up in bed resting quietly, she reports her pain is under control. She underwent a L hip hemiarthroplasty yesterday. There is dressing to her left hip clean dry and intact, wedges in place between her legs. Discussed proper use of pain medicine for keeping pain at a tolerable level and suggested requesting before physical therapy Exam Vital signs and Labs for Last 24 Hours: Temp Pulse Resp BP Pulse Ox 98.5 F 59 L 20 120/84 96 07/26/20 08:13 07/26/20 08:13 07/26/20 07:41 07/26/20 08:13 07/26/20 07:57 Laboratory Results - last 24 hr 07/25/20 06:23: Total Counted 100, Neutrophils % (Manual) 82 H, Band Neutrophils % 2.0, Lymphocytes % (Manual) 13, Monocytes % (Manual) 3, Platelet Estimate Normal, RBC Morphology Normal 07/25/20 14:10: Urine Color Yellow, Urine Appearance Clear, Urine pH 6.0, Ur Specific Egan >= 1.030, Urine Protein Trace, Urine Glucose (UA) 2+, Urine Ketones 2+, Urine Blood Negative, Urine Nitrate Positive, Urine Bilirubin Negative, Urine Urobilinogen 0.2, Ur Leukocyte Esterase Negative, Urine RBC 3-5, Urine WBC 10-20 A, Urine Bacteria 3+ A 07/25/20 16:32: POC Glucose 252 H 07/25/20 20:33: POC Glucose 276 H 07/26/20 05:52: POC Glucose 293 H 07/26/20 06:01: WBC 10.8 D, RBC 4.56, Hgb 13.7, Hct 39.5, MCV 86.6, MCH 30.0, MCHC 34.6, RDW 14.6, Plt Count 152, MPV 9.5, Neut % (Auto) 87.2 H, Lymph % (Auto) 5.9 L, [place] % (Auto) 6.9, Eos % (Auto) 0.0 L, Baso % (Auto) 0.0 L, Neut # (Auto) 9.4 H, Lymph # (Auto) 0.6 L, [place] # (Auto) 0.7, Eos # (Auto) 0.0, Baso # (Auto) 0.0, Total Counted 100, Neutrophils % (Manual) 87 H, Lymphocytes % (Manual) 6 L, Monocytes % (Manual) 7, Platelet Estimate Normal, RBC Morphology Normal 07/26/20 06:01: Sodium 133 L, Potassium 4.1, Chloride 97 L, Carbon Dioxide 21 L D, Anion Gap 19.1 H, BUN 30 H D, Creatinine 0.90, Estimated Creat Clear 48, Estimated GFR 60, Est GFR ( Amer) 73, Glucose 284 H, Calcium 9.0 I & O for Last 24 hours: Intake & Output 07/23/20 07/24/20 07/25/20 07/26/20 23:59 23:59 23:59 23:59 Intake Total 480 / 480 1850 / 1850 1498 / 1498 Output Total 450 / 775 475 / 475 Balance 480 / 480 1400 / 1075 1023 / 1023 Weight 151 lb 6 oz 151 lb 7 oz 148 lb 8 oz - Constitutional no acute distress - *Routine HEENT Exam Head: Present: normocephalic Eye: Present: EOMI ENT: Present: mucous membranes moist - *Routine Neck Exam Present: full ROM, trachea midline. Absent: tracheal deviation - *Routine Respiratory Exam Present: CTA bilaterally. Absent: accessory muscle use - *Routine Cardiovascular Exam Present: RRR, Normal S1, Normal S2. Absent: tachycardia - *Routine Abdominal Exam Present: soft, normoactive bowel sounds. Absent: tenderness, rigid - *Routine Extremities Exam Present: pulses intact. Absent: cyanosis, full ROM Comments: Wedge in place between legs - *Routine Skin Exam Present: dry, wounds. Absent: intact, cyanosis Comments: Drsg to L Hip C/D/I - *Routine Neurological Exam Present: alert, oriented X3. Absent: pronator drift, altered mental status - Routine Psychiatric Exam Present: normal affect, normal thought process. Absent: auditory hallucinations, visual hallucinations Assessment and Plan (1) Femoral neck fracture Status: Acute Qualifiers: Encounter type: initial encounter Fracture type: closed Laterality: left Qualified Code(s): S72.002A - Fracture of unspecified part of neck of left femur, initial encounter for closed fracture Category: Medical Code(s): S72.009A - Fracture of unspecified part of neck of unspecified femur, initial encounter for closed fracture (2) CAD (coronary artery disease) Status: Chronic Qualifiers: Coronary Disease-Associated Artery/Lesion type: [place] artery [place] vs. transplanted heart: [place] heart Associated angina: without angina Qualified
--- NOTE | 2020-07-26 08:43 | HMH.PTEV ---
Physical Therapy Evaluation Rehab PT IP Evaluation Start: 07/25/20 16:35 Freq: ONCE Status: Active Protocol: Document 07/26/20 08:38 SURJIT (Rec: 07/26/20 08:43 SURJIT [id number]) Subjective/History History History 79-year-old female patient presents to the emergency department after a fall outside of a grocery store while shopping. She reports she was walking, became unbalanced and fell to the pavement. She reports landing on her hip and feeling pain immediately. She denies hitting her head, loss of consciousness, chest pain, shortness of breath, or any dizziness at time of fall. copied from ER MD note H&P Subjective Subjective Pt rpeorts c/o pain in L hip w / mvmnt and c/o dizzy upon sitting EOB and attempting to stand Rehab PT IP Eval Objective Appearance Patient Behavior Sedated,Fatigued Patient Orientation Place,Name,Year Difficulty following instructions mild Speech Pattern Delayed,Soft-Spoken Ambulation Patient Able to Ambulate No Balance Ability to Arise Unable Sitting Balance Leans or slides in chair Standing Balance Unsteady Dynamic Sitting Balance Ability Poor Dynamic Standing Balance Ability Zero Transfers Bed Transfer Ability Maximum x 2 (75% assist) Sit to Stand Bed Transfer Ability Maximum x 2 (75% assist) MMT LLE PT MMT ABN Abnormal MMT Grade unable to DF L ankle and unable to lift hip or lower limb against gravity Rehab PT IP prob,goals,plan Problems Date of Evaluation: 07/26/20 PT IP Problems Bed Mobility,Transfers,Gait, Balance,Self care,Safety Rehab Potential Rehab Potential Fair Equipment Needs Assistive Devices Rolling / Wheeled Walker, Wheelchair Plan PT Intervention Plan Bed Mobility,Transfers,Gait, Balance,Self care,Safety, Therapeutic Exercise PT Plan Frequency BID Duration LOS Discharge Goals Bed Transfer Ability Maximum x 2 (75% assist) Sit to Stand Chair Transfer Ability
--- NOTE | 2020-07-26 09:20 | HMH.OTEV ---
OT Inpatient Evaluation Rehab OT IP Evaluation Start: 07/25/20 16:35 Freq: ONCE Status: Complete Protocol: Document 07/26/20 09:12 [place] (Rec: 07/26/20 09:19 [facility] [id number]) Rehab OT IP Assessment Subjective History Pt oriented x 4 on arrival. Pt agreeable to engage in therapy evaluation. Pt was admitted via ED on 07/24 after a fall outside of the grocery resulting in L femoral neck fx. Pt required a L hip hemiarthroplasty on 07/25/20. Pt has a past medical history of HTN, hyperlipidemia, atypical angina, CA, CAD, Dm Type 2, and dyspnea. Pt reports she lived at home with her prior to fall. Pt claims she was independent with all ADLs and IADLs. Pt also still drove and did not require AE during ambulation. Subjective I am dizzy. Objective Patient Orientation Person,Place,Birthday,Year Upper Extremity Gross ROM WFL Bed Mobility bed mobility-scooting,bed mobility - supine/sit,bed mobility - rolling Assist Level Maximum x 2 (75% assist) Rehab OT IP prob,goals,plan Problems Date of Evaluation: 07/26/20 OT IP Problems Bed Mobility,Transfers,Gait, Balance,Self care,Safety Rehab Potential Rehab Potential Good Equipment Needs Assistive Devices Rolling / Wheeled Walker Plan OT intervention Plan Bed Mobility,Transfers,Gait, Balance,Self care,Safety, Therapeutic Exercise OT Plan Frequency Daily Duration LOS Discharge Goals Bed Mobility Ability Assistance x1 Sit to Stand Chair Transfer Ability Moderate x 1 (50% assist) Chair Transfer Ability Moderate x 1 (50% assist) Chair Transfer Technique Sit to/from Ambulatory Chair Transfer Assistive Devices Rolling Walker Feeding Ability Independent Lower Body Dressing Ability Assistance X1 Upper Body Dressing Ability Standby Assistance Bathing Ability Assistance x1 Performing Toilet Hygiene Ability Assistance X1 Overall Commode/Toilet Transfer Ability Assistance x1 Commode/Toilet Transfer Technique Sit to/from Ambulatory Discharge Plan OT Discharge Plan
[2020-07-26 10:57] LABS: POC Glucose,Bedside 265 (70-110)
--- NOTE | 2020-07-26 12:25 | P.PN_ITS ---
Subjective Date: 07/26/20 Time: 11:00 Principal diagnosis: L femoral neck fracture Interval history: The patient is doing well this morning, though she is somewhat drowsy. She does not report significant pain in the hip but has declined pain medications this morning. Mi catheter has been removed and she has been out of bed with physical therapy, has reportedly done well from that standpoint. The plan is for discharge tomorrow to [facility]. PN: Obj Ex Vital signs: Temp Pulse Resp BP Pulse Ox 97.6 F 93 H 18 176/87 H 100 07/26/20 11:31 07/26/20 11:31 07/26/20 11:31 07/26/20 11:31 07/26/20 11:31 - Constitutional no acute distress - Routine HEENT Exam Head: Present: normocephalic Eye: Present: EOMI ENT: Present: mucous membranes moist - Routine Neck Exam Present: trachea midline - Routine Respiratory Exam Absent: respiratory distress, wheezes - Routine Cardiovascular Exam Present: RRR - Routine Abdominal Exam Present: soft. Absent: tenderness - Routine Extremities Exam Comments: L hip dressings c/d/i w/o strikethrough +DF/PF/EHL LLE SILT distally LLE in all distributions L calf soft, non-tender palpable pedal pulses LLE, foot pink/warm - Routine Skin Exam Present: warm - Routine Neurological Exam Present: alert, oriented X3, moving all extremities, normal tone, vision grossly intact, hearing grossly intact, normal speech. Absent: sensory deficit, motor deficit, altered mental status - Routine Psychiatric Exam Present: normal affect - Urinary Catheter Management Mi Cath placed during this visit: yes, but has since been removed by the nurse Insertion date: 07/25/20 Removal date: 07/26/20 Progress Note: A&P (1) Femoral neck fracture Status: Acute (2) CAD (coronary artery disease) Status: Chronic (3) Diabetes Status: Chronic (4) HLD (hyperlipidemia) Status: Chronic (5) HTN (hypertension) Status: Chronic Assessment and Plan for All Diagnoses:: 79yo F POD 1 s/p L hip hemiarthroplasty for FNF -- may be OOB as tolerated with assist; WBAT LLE -- PT/OT to continue while inpatient; posterior hip precautions, abduction pillow. -- SCD RLE -- encourage IS 10x/hr while awake -- ice pack L hip as needed -- DVT prophy: lovenox to start today. Anticoag at d/c per PCP. -- finish 24hr IV antibiotic prophylaxis -- pain control; po/IV meds ordered PRN -- care management consult for dispo planning; [facility] *follow-up with me in the office in 2 weeks
--- NOTE | 2020-07-26 14:01 | CT_ITS ---
PROCEDURE: CT HEAD/BRAIN WO CON CLINICAL INDICATION: delyed response L side affect Left-sided weakness COMPARISON: CT CT HEAD/BRAIN WO CON from 03/29/2020 TECHNIQUE: Axial images obtained. All CT scans at the facility use one or more dose reduction, viz: automated exposure control, ma/kV adjustment per patient size (including targeted exams where dose is matched to indication, i.e. head), or iterative reconstruction technique. FINDINGS: No midline shift, mass effect, intracranial hemorrhage, hydrocephalus, or extra-axial fluid collection is evident. There is generalized atrophy with hypoattenuation of the periventricular white matter consistent with microangiopathic changes. The calvarium has an unremarkable appearance. No mastoid effusion. No sinus air-fluid level. IMPRESSION: No acute intracranial finding No significant change Dictated by: Torsten Esquivel MD 07/26/2020 14:46 Torsten Esquivel MD in [place] 07/26/2020 14:46
--- NOTE | 2020-07-26 15:12 | PC.NURSE ---
A&OX4. PT HAS TOLERATED ROOM AIR WELL THROUGHOUT SHIFT. RESPIRATIONS REGULAR AND UNLABORED. LUNG SOUNDS BILATERALLY CLEAR. NO COUGH NOTED. PT HAS BEEN ENCOURAGED TO USE INCENTIVE SPIROMETER 10 TIMES EVERY HOUR WHILE AWAKE. PT HAS SEEMED A LITTLE FOGGY THROUGHOUT SHIFT. AWARE AND A CT WAS ORDERED COMING BACK NEGATIVE FOR ANYTHING. SHE HAS SLEPT ON AND OFF THROUGHOUT SHIFT. IS AT BEDSIDE. PT RECEIVED ROCEPHIN THIS SHIFT AND TOLERATED WELL. DURING PT, PT BECAME DIZZY AND CHANGE IN COLOR WAS NOTED BY PT STAFF WHEN TRYING TO SIT PT ON THE SIDE OF THE BED. THEY WERE UNABLE TO HELP HER STAND DUE TO THIS. PT HAS ONLY REPORTED PAIN ONCE AND RECEIVED A PERCOCET. ON REASSESSMENT, PT STATED PAIN HAD DECREASED AND WAS TOLERABLE. SCUD NOTED TO R LEG. ICE PACK APPLIED NEEDED. ABDUCTOR PILLOW IN PLACE. HEAD HAS REMAINED ELEVATED ABOVE 30 DEGREES. LR INFUSING AT 50ML/HR. PARKER CATHETER WAS REMOVED AND PT TOLERATED WELL. PT HASN'T VOIDED YET. NOTIFYING MD NOW. ACTIVE BOWEL SOUNDS HEARD IN ALL 4 QUADRANTS. SOFT AND NONTENDER ABDOMEN. NO BM THUS FAR. PT IS PASSING FLATUS. HAND PAEDIATRIC SURGEON EQUAL. +2 PULSES NOTED THROUGHOUT. DRESSING NOTED TO L HIP. CDI. PT IS CURRENTLY SITTING IN BED W CALL LIGHT WITHIN REACH. BED IN LOWEST POSITION. VSS. WILL CONTINUE TO MONITOR.
[2020-07-26 16:14] LABS: POC Glucose,Bedside 371 (70-110)
--- NOTE | 2020-07-26 16:15 | PC.NURSE ---
SPOKE Marisel DUNCAN ABOUT PT NOT HAVING ANY URINARY OUTPUT SINCE HAVING FOLLOW DC'D THIS MORNING AT 8AM. ALSO NOTIFIED HIM THAT PT RECEIVED SPIROLACTONE THIS AFTERNOON. HE ORDERED A BLADDER SCAN TO BE DONE. BLADDER SCAN COMPLETED AND 248ML NOTED. 17:15 SPOKE WITH NIKO ABOUT BLADDER SCANNER. SHE STATED TO ANCHOR A PARKER CATHETER IF URINE OUTPUT >200. URINE NOTED AT 250. PARKER ANCHORED. PT TOLERATED WELL. DARK YELLOW FOUL URINE NOTED.
[2020-07-26 20:44] LABS: POC Glucose,Bedside 273 (70-110)
[2020-07-27] VITALS: BP 141/71; PULSE 91; RESP 20; TEMP 37.1; O2SAT 96
[2020-07-27 04:00] VITALS: BP 152/76; PULSE 92; RESP 20; TEMP 37; O2SAT 95
[2020-07-27 05:02] VITALS: BMI 24.7
--- NOTE | 2020-07-27 05:24 | PC.NURSE ---
Pt has been pleasant and cooperative this shift. A&O X4. No complaints of pain. Pt is on room air with sats. >90%. Lungs CTA. No edema noted. LT hip surgical dressing is C/D/I. Pt has been turned/repositioned Q2H this shift and abduction pillow is in place. No BM this shift. 20 G peripheral IV in the RT wrist is patent and infusing LR @ 50 ML/HR. FSBS results have been 273 and 290, both of which required insulin coverage per sliding scale. VSS. Call light within reach. Will continue to monitor.
[2020-07-27 05:47] LABS: POC Glucose,Bedside 290 (70-110)
[2020-07-27 07:58] LABS: Basophils % 0.2 % (0.1-2.0); Eosinophils % 0.2 % (0.1-12.0); Hematocrit 37.2 % (37.0-47.0); Hemoglobin 12.7 g/dL (12.2-16.2); Lymphocytes # 0.9 K/mm3 (0.7-4.5); Lymphocytes % 10.3 % (10-50); Mean Corpuscular HGB Conc 34.1 g/dL (31.8-35.4); Mean Corpuscular Hemoglobin 29.8 pg (27.0-31.2); Mean Corpuscular Volume 87.4 fl (81-99); Mean Platelet Volume 9.2 fl (7.4-10.4); Monocytes # 0.7 K/mm3 (0.1-1.0); Monocytes % 7.9 % (1.7-9.3); Neutrophils # 6.8 K/mm3 (1.8-7.8); Neutrophils % 81.4 % (37.0-80.0); Platelet Count 128 K/mm3 (142-424); Red Blood Count 4.26 M/mm3 (4.20-5.40); Red Cell Distribution Width 14.3 % (11.5-17.5); White Blood Count 8.3 K/mm3 (4.8-10.8)
[2020-07-27 08:00] VITALS: BP 147/73; PULSE 102; RESP 18; TEMP 36.7; O2SAT 98
[2020-07-27 08:00] LABS: Chloride 97 mmol/L (98-107); Sodium 135 mmol/L (136-145)
[2020-07-27 08:01] LABS: Potassium 3.2 mmoL/L (3.5-5.1)
[2020-07-27 08:03] LABS: Blood Urea Nitrogen 31 mg/dl (7-17); Creatinine Clearance Estimated 50 mL/min (50-200); Estimated Glomerular Filt Rate 60 ml/min (>60); GFR (African American) 73 ML/MIN (>60)
[2020-07-27 08:04] LABS: Anion Gap 11.2 mEq/L (5-15); Carbon Dioxide 30 mmol/L (22.0-30.0); Glucose 250 mg/dl (74-100)
--- NOTE | 2020-07-27 08:46 | HMH.DCSUM ---
General - General Admission date:: 07/24/20 Discharge date: 07/27/20 HPI HPI: 79-year-old female patient presents to the emergency department after a fall outside of a grocery store while shopping. She reports she was walking, became unbalanced and fell to the pavement. She reports landing on her hip and feeling pain immediately. She denies hitting her head, loss of consciousness, chest pain, shortness of breath, or any dizziness at time of fall. She denies any neck or lower back pain. In the emergency department she received morphine which controlled her pain, Zofran for nausea, and IV fluids. She does have a medical history of diabetes, HTN, atypical angina, tremor, and dyspnea. She is currently lying in bed respirations easy and even, she reports her pain is under control. Discussed surgery, length of stay, and length of stay at rehab facility. She denies any new medical problems and is seen by [facility] primary care. She is currently living in a 1 story home with her of 60 years, she does not require the use of a cane or walker for ambulation but does report decreased ambulation Orthopedics was consulted and plan for a L hip hemiarthroplasty today, she has been n.p.o. since midnight. Cardiology was also consulted for cardiac clearance for surgery 07/24/20 L Hip XR: IMPRESSION: Basicervical left femoral neck fracture with impaction of the fracture fragments Dictated by: Alvin, 07/24/20 CXR: IMPRESSION: No acute findings. Dictated by: Alvin Patient is acceptable risk for surgery from a Medical standpoint to proceed with left hip surgery, Cardiac clearance. Hospital Course Hospital Course: pt has been doing better - she was seen by ortho and had [id number] female admitted through the ER after a fall earlier today at the grocery store. She was outside the store when she lost her balance and fell onto the left hip, directly onto the pavement. She denies LOC during the event and has no current neck pain. She denies any chest pain, shortness of breath or dizziness prior to the fall. Pain is localized to the left hip without numbness or tingling distally in the left lower extremity. No low back pain. Medical history includes diabetes, hypertension, coronary artery disease, hyperlipidemia. She recently saw Dr. Carrillo with cardiology on 07/07/20, at which time she was noted to have EF of 55%, diastolic dysfunction stable. She lives in a one-story home with her of 60 years. She does not require the use of a cane or walker for ambulation, but does note that her ambulation is limited. She used to walk a quarter of a mile to their mailbox but is unable to do this anymore. Her activity is mainly confined to the household and performing ADLs and housework. discussed treatment options with the patient, including both operative and nonoperative interventions. I discussed the risk of nonoperative treatment, including persistent pain, inability or difficulty with ambulation, pressure ulcers, DVT/PE, pneumonia, UTI, and other consequences of bed confinement. I also discussed the risk of surgical treatment. Specifically I discussed the options of hemiarthroplasty versus total hip arthroplasty. After discussion of the patient's activity level and goal to return home and perform ADLs independently, we have decided to proceed with hemiarthroplasty. -- I discussed the risks of the surgery, including bleeding, infection, intra-operative femur fracture, component loosening/subsidence, neurovascular damage, foot drop, hip abductor weakness, component dislocation and need for revision surgery, in addition to the risks of anesthesia which include but are not limited to heart attack, stroke and even . The patient is in agreement with this plan, all questions were answered, informed consent was obtained. -- plan: L hip hemiarthroplasty tomorrow, 07/25/20 -- NPO after midnight tonight, regular d
--- NOTE | 2020-07-27 09:30 | PC.NURSE ---
Mi removed per Dr. Gamez @ [id number].
--- NOTE | 2020-07-27 10:41 | PC.NURSE ---
Called report to Rosibel at [facility] and also spoke with another nurse to clarify lisinopril and aldactone orders. Awaiting [facility] and meds to bed at this time.
[2020-07-27 11:39] LABS: POC Glucose,Bedside 305 (70-110)
== END 2020-07-27 13:00 | DRG 522 ==
LOC: ER 15:12 → 2ND 16:33
PROVIDERS: Nurse Practitioner Family; Orthopaedic Surgery; Admitting Provider Emergency Medicine; Emergency Provider Student in an Organized Health Care Education/Training Program; PCP Physician Assistant; Visit Provider Emergency Medicine
PROC: 0SRS03A Replacement of Left Hip Joint, Femoral Surface with Ceramic Synthetic Substitute, Uncemented, Open Approach (ICD-10-PCS; CPT 27245; principal; 2020-07-25 13:00)
DX: S72.092A Other fracture of head and neck of left femur, initial encounter for closed fracture (principal); N39.0 Urinary tract infection, site not specified; Z79.84 Long term (current) use of oral hypoglycemic drugs; W01.0XXA Fall on same level from slipping, tripping and stumbling without subsequent striking against object, initial encounter; Y92.481 Parking lot as the place of occurrence of the external cause; I25.10 Atherosclerotic heart disease of native coronary artery without angina pectoris; E11.9 Type 2 diabetes mellitus without complications; I10 Essential (primary) hypertension; E78.5 Hyperlipidemia, unspecified; E03.9 Hypothyroidism, unspecified; Z79.899 Other long term (current) drug therapy; B96.20 Unspecified Escherichia coli [E. coli] as the cause of diseases classified elsewhere
CPT/HCPCS: 27236; 36415; 70450; 71045; 73502; 80048; 80053; 81001; 82962; 85007; 85025; 85610; 85730; 86328; 86850; 87086; 87088; 87186; 93306; 93308; 96365; 96375; 97162; 97165; 97530; 99284; C1776; J2405; J2704; U0003

== ENCOUNTER → 2020-08-10 14:11 | Outpatient (CLI) | payer MEDICARE, SELFPAY ==
--- NOTE | 2020-08-10 14:16 | XR_ITS ---
PROCEDURE: XR HIP LT 2-3V W/PELVIS CLINICAL INDICATION: Lt hip rashida Follow-up hip hemiarthroplasty COMPARISON: CR XR HIP LT 2-3V W/PELVIS from 07/25/2020 FINDINGS: Status post left hip hemiarthroplasty. There is good alignment with no evidence of complications. Postsurgical gas noted. IMPRESSION: Status post left hip hemiarthroplasty. There is good alignment with no evidence of complications. Postsurgical gas noted. Dictated by: Torsten Esquivel MD 08/10/2020 17:02 Torsten Esquivel MD in [place] 08/10/2020 17:02
== END ==
PROVIDERS: PCP Physician Assistant; Visit Provider Orthopaedic Surgery
DX: S72.002A Fracture of unspecified part of neck of left femur, initial encounter for closed fracture (principal)
CPT/HCPCS: 73502

== ENCOUNTER 2020-08-21 15:07 | Inpatient (IN) | payer MEDICARE, SELFPAY ==
[2020-08-21] VITALS (12 sets, daily range): BP systolic 106–124; BP diastolic 64–92; PULSE 59–159; RESP 26–40; TEMP 37–37.9; O2SAT 90–100; BMI 32.1; BMI 32.3; BMI 28.8
--- NOTE | 2020-08-21 15:18 | XR_ITS ---
PROCEDURE: XR CHEST PORTABLE CLINICAL HISTORY: cough COMPARISON: CR CXR2V XR chest 2V from 12/11/2018 CR XR CHEST 2V from 03/28/[address] CHEST WO CON from 06/23/2020 CR XR CHEST AP from 07/24/2020 FINDINGS: There is mild cardiomegaly without failure. There is patchy infiltrate in the right upper lobe and right perihilar region and possibly in the left midlung. No acute bony abnormalities. IMPRESSION: Pneumonia in the right upper and right perihilar region and possibly left midlung Dictated by: Torsten Esquivel MD 08/21/2020 16:36 Tortsen Esquivel MD in [facility] 08/21/2020 16:36
--- NOTE | 2020-08-21 15:19 | CT_ITS ---
PROCEDURE: CT HEAD/BRAIN WO CON CLINICAL INDICATION: ams Altered mental status, altered level of consciousness, confusion, disorientation COMPARISON: CT CT HEAD/BRAIN WO CON from 07/26/2020 TECHNIQUE: Axial images obtained. All CT scans at the facility use one or more dose reduction, viz: automated exposure control, ma/kV adjustment per patient size (including targeted exams where dose is matched to indication, i.e. head), or iterative reconstruction technique. FINDINGS: No midline shift, mass effect, intracranial hemorrhage, hydrocephalus, or extra-axial fluid collection is evident. There is generalized atrophy with hypoattenuation of the periventricular white matter consistent with microangiopathic changes. 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 No mastoid effusion. No sinus air-fluid level. IMPRESSION: No acute intracranial finding Dictated by: Torsten Esquivel MD 08/21/2020 16:33 Torsten Esquivel MD in [facility] 08/21/2020 16:33
--- NOTE | 2020-08-21 15:24 | ECG_ITS ---
APPROVED REPORT Exam: Resting ECG HR:155 bpm ECG Measurements Heart Rate 155 AXES QRSd 94 QRS -29 QT 266 T 130 QTc 427 Conclusion Atrial fibrillation with rapid ventricular response Inferior infarct, age undetermined Anteroseptal infarct, age undetermined Abnormal ECG Electronically signed by : Sal Madrigal, 08/21/2020 19:34:57
[2020-08-21 16:04] LABS: Microscopic, Urine URINE MICROSCOPIC (MICROSCOPIC)
[2020-08-21 16:06] LABS: Basophils % 0.1 % (0.1-2.0); Eosinophils % 0.1 % (0.1-12.0); Hematocrit 37.4 % (37.0-47.0); Hemoglobin 12.6 g/dL (12.2-16.2); Lymphocytes # 0.5 K/mm3 (0.7-4.5); Lymphocytes % 11.2 % (10-50); Mean Corpuscular HGB Conc 33.7 g/dL (31.8-35.4); Mean Corpuscular Hemoglobin 29.1 pg (27.0-31.2); Mean Corpuscular Volume 86.4 fl (81-99); Mean Platelet Volume 9.9 fl (7.4-10.4); Monocytes # 0.4 K/mm3 (0.1-1.0); Monocytes % 8.5 % (1.7-9.3); Neutrophils # 3.9 K/mm3 (1.8-7.8); Neutrophils % 80.2 % (37.0-80.0); Platelet Count 136 K/mm3 (142-424); Red Blood Count 4.32 M/mm3 (4.20-5.40); Red Cell Distribution Width 16.7 % (11.5-17.5); White Blood Count 4.9 K/mm3 (4.8-10.8)
[2020-08-21 16:06] LABS: Appearance,Urine SL CLOUDY (Clear); Blood, Urine Negative (Negative); Color,Urine YELLOW (Yellow); Glucose,Urine (UA) TRACE (Negative); Ketones,Urine Negative (Negative); Leukocyte Esterase,Urine Negative (Negative); Nitrate,Urine Negative (Negative); PH,Urine 5.5 (5.0-8.5); Protein,Urine TRACE (Negative); Specific Gravity, Urine 1.025 (1.005-1.030); Urobilinogen,Urine 0.2 EU/dl (0.2)
[2020-08-21 16:08] LABS: Chloride 102 mmol/L (98-107); Potassium 3.9 mmoL/L (3.5-5.1); Sodium 132 mmol/L (136-145)
[2020-08-21 16:10] LABS: Alanine Aminotransferase 84 U/L (12-78); Aspartate Amino Transferase 73 U/L (14-36); Blood Urea Nitrogen 70 mg/dl (7-17); Estimated Glomerular Filt Rate 60 ml/min (>60); GFR (African American) 73 ML/MIN (>60)
[2020-08-21 16:11] LABS: Albumin Level 3.2 g/dl (3.5-5.0); Albumin/Globulin Ratio 1.2 (1.1-1.8); Alkaline Phosphatase 79 U/L (38-126); Anion Gap 13.9 mEq/L (5-15); Bilirubin,Total 0.7 mg/dl (0.2-1.3); Calcium 8.7 mg/dl (8.4-10.2); Carbon Dioxide 20 mmol/L (22.0-30.0); Globulin 2.7 g/dL (1.3-3.2); Glucose 264 mg/dl (74-100); Total Protein,Serum 5.9 g/dl (6.3-8.2)
[2020-08-21 16:13] LABS: Bilirubin,Urine Negative (Negative)
[2020-08-21 16:13] LABS: Lactic Acid 3.6 mmol/L (0.7-2.1)
[2020-08-21 16:15] LABS: INR 2.39 (0.9-1.1); Prothrombin Time 24.5 seconds (9.4-11.8)
[2020-08-21 16:16] LABS: Activated Partial Thrombo Time 42.1 seconds (23.6-34.0)
[2020-08-21 16:21] LABS: NT Pro Brain Natriuretic Pep. 17900 pg/mL (0-450)
[2020-08-21 16:24] LABS: Troponin I 0.08 ng/ml (0.00-0.034)
[2020-08-21 16:26] LABS: Coronavirus 19 IgG Antibody Negative (Negative); Coronavirus 19 IgM Antibody Negative (Negative)
[2020-08-21 16:40] LABS: Bacteria,Urine Trace /lpf
[2020-08-21 16:42] LABS: Thyroid Stimulating Hormone 2.56 uIU/mL (0.465-4.68)
[2020-08-21 17:26] LABS: Adenovirus,PCR Not Detected (NotDetected); Bordetella Pertussis Not Detected (NotDetected); Chlamydophila Pneumoniae, PCR Not Detected (NotDetected); Coronavirus 229E Not Detected (NotDetected); Coronavirus NL63 Not Detected (NotDetected); Coronavirus OC43 Not Detected (NotDetected); Coronovirus HKU1,PCR Not Detected (NotDetected); Human Metapneumovirus Not Detected (NotDetected); Influenza A, PCR Not Detected (NotDetected); Influenza AH1, 2009 Not Detected (NotDetected); Influenza AH1, PCR Not Detected (NotDetected); Influenza AH3,PCR Not Detected (NotDetected); Influenza B, PCR Not Detected (NotDetected); Mycoplasma Pneumoniae, PCR Not Detected (NotDetected); Parainfluenza 1, PCR Not Detected (NotDetected); Parainfluenza 2, PCR Not Detected (NotDetected); Parainfluenza 3, PCR Not Detected (NotDetected); Parainfluenza 4, PCR Not Detected (NotDetected); Respiratory Syncytial Virus Not Detected (NotDetected); Rhinovirus/Enterovirus Not Detected (NotDetected)
--- NOTE | 2020-08-21 17:39 | HMH.EDAMS ---
ED Disposition Clinical Impression: Pneumonia of right lower lobe due to infectious organism, Acute respiratory failure due to COVID-19, Delirium due to general medical condition, Atrial fibrillation with rapid ventricular response Sepsis Qualifiers: Sepsis type: sepsis due to unspecified organism Sepsis acute organ dysfunction status: with acute organ dysfunction Severe sepsis acute organ dysfunction type: acute respiratory failure Acute respiratory failure type: with hypoxia Severe sepsis shock status: without septic shock Qualified Code(s): A41.9 - Sepsis, unspecified organism; R65.20 - Severe sepsis without septic shock; J96.01 - Acute respiratory failure with hypoxia Disposition: Admitted As Inpatient Condition on Discharge: Serious Instructions: DI for Altered Mental Status Referrals: PCP,No [Non-Staff] - - Critical Care Critical Care Time: Yes Attestation: On 08/21/20, the high probability of a clinically significant, sudden or life threatening deterioration of the following system(s) required my full and direct attention, intervention and personal management. The time I documented below is in addition to time spent performing reported procedures but includes the following listed in this critical care notation. Total Critical Care Time: 30 Vital system(s) involved:: Circulatory Failure, Central Nervous System, Metabolic Failure, Respiratory Failure My critical care processes included: Assessment & monitoring of V/S, Initial and Re-exams, Data Review/Interpretation, Coordinating Care, Medication Orders and management, Documentation Medical Decision Making - Medical Records Medical records reviewed: Yes: I reviewed the patient's medical records. - Jose Inquiry Pt receiving controlled substance: No Vital Signs: 08/21/20 15:07 08/21/20 15:37 08/21/20 16:07 Temperature 100.2 F H Temperature Source Rectal Pulse Rate [Apical] 59 L 102 H 86 Respiratory Rate 36 H 38 H Blood Pressure [Right Arm] 121/80 106/64 L 109/85 L Blood Pressure Mean [Right Arm] 93 78 93 Blood Pressure Source [Right Arm] Automatic Cuff Automatic Cuff Automatic Cuff Blood Pressure Position [Right Arm] Sitting Sitting Sitting 02 Sat by Pulse Oximetry 95 97 100 Oxygen Delivery Method Room Air Nasal Cannula Nasal Cannula Oxygen Flow Rate (LPM) 2 2 08/21/20 16:30 08/21/20 17:00 08/21/20 17:30 Temperature Temperature Source Pulse Rate [Apical] 153 H 142 H 159 H Respiratory Rate 38 H 40 H 40 H Blood Pressure [Right Arm] 117/86 116/92 H 117/77 Blood Pressure Mean [Right Arm] 96 100 90 Blood Pressure Source [Right Arm] Automatic Cuff Automatic Cuff Blood Pressure Position [Right Arm] Sitting Sitting 02 Sat by Pulse Oximetry 100 99 99 Oxygen Delivery Method Nasal Cannula Nasal Cannula Nasal Cannula Oxygen Flow Rate (LPM) 2 2 2 08/21/20 18:00 Temperature Temperature Source Pulse Rate [Apical] 109 H Respiratory Rate 38 H Blood Pressure [Right Arm] 110/75 Blood Pressure Mean [Right Arm] 86 Blood Pressure Source [Right Arm] Automatic Cuff Blood Pressure Position [Right Arm] Sitting 02 Sat by Pulse Oximetry 99 Oxygen Delivery Method Nasal Cannula Oxygen Flow Rate (LPM) 2 - Lab Data Lab Results 08/21/20 15:45: WBC 4.9, RBC 4.32, Hgb 12.6, Hct 37.4, MCV 86.4, MCH 29.1, MCHC 33.7, RDW 16.7, Plt Count 136 L, MPV 9.9, Neut % (Auto) 80.2 H, Lymph % (Auto) 11.2, [place] % (Auto) 8.5, Eos % (Auto) 0.1, Baso % (Auto) 0.1, Neut # (Auto) 3.9, Lymph # (Auto) 0.5 L, [place] # (Auto) 0.4, Eos # (Auto) 0.0, Baso # (Auto) 0.0 08/21/20 15:45: Sodium 132 L, Potassium 3.9, Chloride 102, Carbon Dioxide 20 L, Anion Gap 13.9, BUN 70 H, Creatinine 0.90, Estimated GFR 60, Est GFR ( Amer) 73, Glucose 264 H, Calcium 8.7, Total Bilirubin 0.7, AST 73 H, ALT 84 H, Alkaline Phosphatase 79, Troponin I 0.08 H, NT-Pro-B Natriuret Pep 41038 H, Total Protein 5.9 L, Albumin 3.2 L, Globulin 2.7, Albumin/Globulin Ratio 1.2, TSH 2.56 08/21/20 15:45: SARS-CoV-2 IgG
--- NOTE | 2020-08-21 18:35 | PC.NURSE ---
Dr. Becker paged
--- NOTE | 2020-08-21 18:37 | PC.NURSE ---
FISH ARANGO speaking with who is construction foreman for Dr. Gamez
--- NOTE | 2020-08-21 18:41 | PC.NURSE ---
[facility]
[2020-08-21 18:45] LABS: Coronavirus 19, PCR Detected (NotDetected)
--- NOTE | 2020-08-21 19:07 | PC.NURSE ---
shift change report given to maryrn
[2020-08-21 19:11] LABS: Troponin I 0.08 ng/ml (0.00-0.034)
[2020-08-21 19:21] LABS: Ammonia < 9 umol/L (9-30)
--- NOTE | 2020-08-21 19:54 | CT_ITS ---
PROCEDURE: CT ANGIO CHEST CLINCIAL INDICATION: soa Shortness of breath, pneumonia respiratory failure, sepsis COMPARISON: CT CT CHEST WO JOSÉ from 06/23/2020 TECHNIQUE: IV Contrast: 70ML Isovue 370 Axial images obtained with sagittal and coronal reformats. All CT scans at the facility use one or more dose reduction, viz: automated exposure control, ma/kV adjustment per patient size (including targeted exams where dose is matched to indication, i.e. head), or iterative reconstruction technique. FINDINGS: HEART AND MEDIASTINAL STRUCTURES: There is cardiomegaly. Filling defects are present with a right upper and lower lobar and segmental pulmonary arteries consistent with pulmonary emboli. Coronary artery calcifications are present. There is mild prominence of the main pulmonary artery measuring 3 cm. There is mild flattening of the interventricular septum and reflux of contrast into the inferior vena cava which may be seen with right heart strain.. LUNGS AND PLEURAL SPACES: Multifocal areas of ground-glass opacification in the upper and lower lobes. There are small bilateral pleural effusions with bibasilar atelectatic change. Pulmonary nodules could be obscured. BONY STRUCTURES: No acute bony abnormalities apparent. UPPER ABDOMEN: Unremarkable. ADDITIONAL FINDINGS: No other significant abnormalities. IMPRESSION: 1. Right-sided pulmonary emboli. There is straightening the interventricular septum and reflux of contrast into the inferior vena cava which may be seen with right heart strain. Cardiomegaly is present. 2. Multifocal ground-glass infiltrates which may be seen with atypical/Covid19 pneumonia 3. Small bilateral pleural effusions. Dictated by: Torsten Esquivel MD 08/22/2020 06:51 Torsten Esquivel MD in [place] 08/22/2020 06:51
[2020-08-21 19:57] LABS: Reflex Lactic Add Lactic Reflex
--- NOTE | 2020-08-21 20:39 | PC.NURSE ---
patient up to floor via stretcher.
[2020-08-21 20:41] LABS: Lactic Acid Follow Up (RFLX 1) 1.8 mmol/L (0.7-2.1)
[2020-08-21 20:54] LABS: Troponin I 0.08 ng/ml (0.00-0.034)
--- NOTE | 2020-08-21 21:16 | PC.NURSE ---
spoke with Jorge in pharmacy for lovenox dosing at this time.
--- NOTE | 2020-08-21 22:00 | PC.NURSE ---
2nd IV line started at this time, #22g left hand per this RN. Cardizem gtt started per MD orders at this time, verified with Dorina RN
[2020-08-21 22:35] LABS: INR 2.23 (0.9-1.1)
[2020-08-22] VITALS (21 sets, daily range): BP systolic 117–146; BP diastolic 58–97; PULSE 106–148; RESP 16–28; TEMP 36.8–37.6; O2SAT 92–100
[2020-08-22 06:38] LABS: Basophils % 0.1 % (0.1-2.0); Hematocrit 39.3 % (37.0-47.0); Lymphocytes # 0.5 K/mm3 (0.7-4.5); Lymphocytes % 8.4 % (10-50); Mean Corpuscular HGB Conc 33.1 g/dL (31.8-35.4); Mean Corpuscular Hemoglobin 29.4 pg (27.0-31.2); Mean Platelet Volume 9.6 fl (7.4-10.4); Monocytes # 0.4 K/mm3 (0.1-1.0); Monocytes % 6.7 % (1.7-9.3); Neutrophils # 5.2 K/mm3 (1.8-7.8); Neutrophils % 84.9 % (37.0-80.0); Platelet Count 136 K/mm3 (142-424); Red Blood Count 4.42 M/mm3 (4.20-5.40); Red Cell Distribution Width 16.8 % (11.5-17.5); White Blood Count 6.1 K/mm3 (4.8-10.8)
[2020-08-22 06:46] LABS: Alanine Aminotransferase 59 U/L (12-78); Albumin/Globulin Ratio 1.1 (1.1-1.8); Alkaline Phosphatase 92 U/L (38-126); Anion Gap 14.4 mEq/L (5-15); Aspartate Amino Transferase 57 U/L (14-36); Bilirubin,Total 0.7 mg/dl (0.2-1.3); Blood Urea Nitrogen 56 mg/dl (7-17); Calcium 8.4 mg/dl (8.4-10.2); Carbon Dioxide 21 mmol/L (22.0-30.0); Chloride 103 mmol/L (98-107); Creatinine Clearance Estimated 50 mL/min (50-200); Estimated Glomerular Filt Rate 81 ml/min (>60); GFR (African American) 97 ML/MIN (>60); Globulin 2.7 g/dL (1.3-3.2); Glucose 237 mg/dl (74-100); Potassium 4.4 mmoL/L (3.5-5.1); Sodium 134 mmol/L (136-145); Total Protein,Serum 5.7 g/dl (6.3-8.2)
[2020-08-22 06:49] LABS: POC Glucose,Bedside 239 (70-110)
--- NOTE | 2020-08-22 07:39 | HMH.PHAVTE ---
[facility] Pharmacy VTE Monitoring - Patient Demographics Admission date: 08/21/20 Report Date: 08/22/20 Time: 07:39 Allergies/Adverse Reactions: Patient Allergies No Known Allergies Allergy (Verified 08/10/20 14:53) Height: 1.57 m Weight: 70.987 kg Patient Problems: Current Active Problems Pneumonia of right lower lobe due to infectious organism (Acute) Acute respiratory failure due to COVID-19 (Acute) Delirium due to general medical condition (Acute) Atrial fibrillation with rapid ventricular response (Acute) Sepsis (Acute) - VTE Risk Labs: VTE Related Lab Results Hgb 13.0 g/dL (12.2-16.2) 08/22/20 05:55 Hct 39.3 % (37.0-47.0) 08/22/20 05:55 Plt Count 136 K/mm3 (142-424) L 08/22/20 05:55 PT 23.0 seconds (9.4-11.8) H 08/21/20 22:10 INR 2.23 (0.9-1.1) H 08/21/20 22:10 APTT 42.1 seconds (23.6-34.0) H D 08/21/20 15:45 BUN 56 mg/dl (7-17) H 08/22/20 05:55 Creatinine 0.70 mg/dl (0.52-1.04) D 08/22/20 05:55 Estimated Creat Clear 50 mL/min (50-200) 08/22/20 05:55 Was VTE Risk Assessment Performed: Yes VTE Score: 3 VTE Risk Level: Low Risk - Prophylaxis VTE Prophylaxis Ordered?: Yes Types of VTE Prophylaxis: TEDS Knee High, Pharmacological Location of Applied Device: Bilateral Lower Extremeties Pharmacologic Type: Enoxaparin
--- NOTE | 2020-08-22 07:45 | PC.NURSE ---
pt was confused on arrival to floor. pt is alert x4 at this time. hr remains elevated cardizem drip is at 15ml/hr. 100% on 2LNC. stage 3 and stage 2 present on coccyx area. dressing placed and picture consent signed. iv patent and infusing per order. turned q2h. alberto placed and 1800 of tea color urine was drained on insertion. urine is now a clear dark randell color at this time. call light in reach. bed alarm set. will continue to monitor
--- NOTE | 2020-08-22 08:00 | CA_ITS ---
APPROVED REPORT EXAM: Comprehensive 2D, Doppler, and color-flow Echocardiogram [employer] Harvest Machine Operator: Stephanie Ramos RT(R) Ht: 5 ft 1 in Wt: 175lbs BSA: 1.78 BP: 110/70 mmHg Indications: respiratory failure, sepsis, AFIB, HTN, hyperlipidemia, elevated troponins, CHF, + COVID, CAD, SOB, DM 2D Dimensions LVOT 1.65 cm (M/F) 1.5-2.5 M-Mode Dimensions RVDd 2.69 cm (0.9-2.6) LA Diam 3.62 cm (1.9-4.0) LVDd 4.36 cm (3.5-5.7) Ao Diam 2.48 cm (2.0-3.7) LVDs 4.06 cm (3.5-5.7) IVSd 0.87 cm (0.6-1.1) PWd 0.81 cm (0.6-1.1) EF (Teich) 15.50% FS 6.90% EDV (Teich) 85.80 mL ESV (Teich) 72.50 mL Tricuspid Valve TR P. Velocity 285.00 cm/s RAP Estimate 10.00 mmHg RVSP 42.40 mmHg Left Ventricle Left atrium is mildly enlarged, left ventricle is normal size, mild concentric left ventricular hypertrophy, visually estimated ejection fraction approximately 30%, there is marked hypokinesis involving the inferior, inferior septum, intraventricular septum and anterior wall. Only lateral wall contracts reasonably well. Diastolic parameters are inconclusive. Right Ventricle Right atrium and right ventricle mildly enlarged with normal contractility. Aortic Valve Aortic valve is thickened and calcified leaflet chordae display mobility, there is no aortic stenosis or aortic insufficiency. Mitral Valve Mitral valve leaflets are minimally thickened, there is mild mitral regurgitation. Tricuspid Valve Tricuspid valve grossly normal, there is mild tricuspid regurgitation, tricuspid regurgitation jet velocity is inadequate for calculation of the right ventricular systolic pressure. Pulmonic Valve Pulmonic valve is poorly visualized. Great Vessels Aortic root is normal size. Pericardium No significant pericardial effusion noted. Conclusion 1. Biatrial enlargement, normal left ventricular size, mild concentric left ventricular hypertrophy, visually estimated ejection fraction approximately 30% with segmental wall motion abnormality described above, diastolic parameters are inconclusive. 2. Thickened and calcified aortic valve without aortic stenosis or aortic insufficiency. 3. Mildly enlarged right ventricle with normal contractility. 4. Mild mitral and tricuspid regurgitation. 5. No significant pericardial effusion noted. Electronically signed by : Idris Carrillo, 08/22/2020 21:04:00
--- NOTE | 2020-08-22 09:39 | SW/DCPLANNER ---
Addendum entered by Donna Loretto 08/25/20 11:42: Family is now speaking about potentially taking patient home at time of discharge if she is not able to participate with therapy: Dr Gamez concurred with this plan. I have spoke with two family members and they have stated they will meet with family this weekend and have decision made Friday morning. Addendum entered by Donna Loretto 08/24/20 13:38: Per family request patient information has been faxed to [employer]). Ade has stated that private pay rate: semi private= $274 and private= $316 Addendum entered by Donna Loretto 08/23/20 13:11: I have spoke with Brigitte today and she stated that she is continuing to speak with her family and will give me a few facility options at discharge soon. Original Note: This patient was admitted from [facility]. I have spoke with Alejandra from [facility] and she has stated: her last covered date was 08/20 and that her understanding is she wont be returning per daughter Brigitte (POA). Alejandra also stated that she was not discharged due to family filing reconsideration after losing appeal but [facility]. Alejandra has stated that they have not heard back from insurance regarding denial/approval at this time for second appeal. Alejandra is unsure why patient was denied. I have spoke with patients POA: Brigitte [phone]. Brigitte has stated that patient will NOT return to [facility] at time of discharge. Brigitte stated that she was very unhappy with patients care at [facility] stating: they almost killed her . Brigitte is unsure which facility she is interested in at this time. I have explained to Brigitte that I will need to know facilities of interest soon: Brigitte has stated that they can not care for patient at home. Brigitte is willing to pay private pay at facility if necessary. I will continue to follow up with Brigitte during patients admission.
--- NOTE | 2020-08-22 10:06 | HMH.PHAINT ---
MEDICATION RECONCILIATION COMPLETED ON PATIENT USING MAR FROM [facility]. -JM MCKENNA, ADELINAD
[2020-08-22 10:53] LABS: POC Glucose,Bedside 319 (70-110)
[2020-08-22 11:13] LABS: INR 2.42 (0.9-1.1); Prothrombin Time 24.8 seconds (9.4-11.8)
--- NOTE | 2020-08-22 11:20 | HMH.HP ---
*Admission Date: 08/21/20 *Chief complaint: Change in Mental Status *History of present illness: This is a 79-year-old female presented to the emergency department from shelter facility with altered mental status. The patient had a recent left hip replacement. The family states that she has been having some confusion over the last week. She was diagnosed with coronavirus 4 days ago. She is not been complaining of any difficulty breathing, however has had a mild cough. Patient is alert and oriented x1 on initial examination. She is found to be in atrial fibrillation with rapid ventricular rate. She has no history of this in the past. She is requiring some supplemental oxygen. No other history could be obtained (Per Dr. Mon). White blood cell count 4.9 H&H stable at 12.6/37.4. Chemistries unremarkable She is COVID-19 positive for 4 days skin 08/21/20 CXR: IMPRESSION: Pneumonia in the right upper and right perihilar region and possibly left midlung Dictated by: Alvin 08/21/[address]: FINDINGS: No midline shift, mass effect, intracranial hemorrhage, hydrocephalus, or extra-axial fluid collection is evident. There is generalized atrophy with hypoattenuation of the periventricular white matter consistent with microangiopathic changes. 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 No mastoid effusion. No sinus air-fluid level. IMPRESSION: No acute intracranial finding Dictated by: Esquivel: 08/21/20 Chest CTA: FINDINGS: HEART AND MEDIASTINAL STRUCTURES: There is cardiomegaly. Filling defects are present with a right upper and lower lobar and segmental pulmonary arteries consistent with pulmonary emboli. Coronary artery calcifications are present. There is mild prominence of the main pulmonary artery measuring 3 cm. There is mild flattening of the interventricular septum and reflux of contrast into the inferior vena cava which may be seen with right heart strain.. LUNGS AND PLEURAL SPACES: Multifocal areas of ground-glass opacification in the upper and lower lobes. There are small bilateral pleural effusions with bibasilar atelectatic change. Pulmonary nodules could be obscured. BONY STRUCTURES: No acute bony abnormalities apparent. UPPER ABDOMEN: Unremarkable. ADDITIONAL FINDINGS: No other significant abnormalities. IMPRESSION: 1. Right-sided pulmonary emboli. There is straightening the interventricular septum and reflux of contrast into the inferior vena cava which may be seen with right heart strain. Cardiomegaly is present. 2. Multifocal ground-glass infiltrates which may be seen with atypical/Covid19 pneumonia 3. Small bilateral pleural effusions. Dictated by: Alvin In the emergency department she received ceftriaxone 1 g IV, doxycycline 100 mg IV, 2 L of IV fluids, diltiazem 10 mg bolus IV and a drip was started This morning patient sitting up in bed she is alert and oriented x1 she reports that she does feel a little better than yesterday but is still short of breath. Currently oxygen saturations 98% on 2 L per nasal cannula. [facility] History I have reviewed the patient's past medical history: Yes Medical History: Reports:: Arrhythmia, Atherosclerotic Heart Disease, Cancer, Coronary Artery Disease, Diabetes Mellitus Type 2, Hyperlipidemia, Hypertension Denies:: Diabetes Mellitus Type 1, Internal Pacemaker, MRSA, Seizures *Have you ever received a pneumonia vaccine?: No *Have you received a flu vaccine this season?: No Other Medical History: Reports: Arthritis, Cataracts, Hypothyroidism. Denies: Blood Transfusion Reaction Laterality Cases: Left: Arthroscopy Hip Other Surgeries: Yes: Cancer Surgery (nose), Cardiac Catheterization, Dilation and Curettage, Skin Cancer Excision, Other (cataracts). No: Pacemaker Amputation: No Fractures: No - *Social History Smoking Status: Never smoker Alcohol Intake: never Alcohol Intake Frequency::
--- NOTE | 2020-08-22 11:57 | HMH.CNCARD ---
History of Present Illness Consult date: 08/22/20 Requesting physician: Kris Gamez Consult reason: atrial fibrillation Chief complaint: SOA Additional Medical History:: 1. HTN A. Echo, 04/2020, 1. Mildly enlarged left atrium, normal left ventricular size, mild concentric left ventricular hypertrophy, visually estimated ejection fraction 55% with no regional wall motion abnormality, endocardial surfaces are poorly visualized., Grade 1 diastolic dysfunction seen without tissue Doppler evidence of raise left atrial pressure. 2. Mild mitral and tricuspid regurgitation. 3. No significant pericardial effusion noted B. Limited echo, 07/26/2020, 1. Mildly enlarged left atrium, normal left ventricular size, mild concentric left ventricular hypertrophy, visually estimated ejection fraction 45% with segmental wall motion abnormality described above, grade 1 diastolic dysfunction seen without tissue Doppler evidence of raise left atrial pressure. Technically difficult study endocardial surfaces are poorly visualized. 2. Mild mitral and tricuspid regurgitation. 3. No significant pericardial effusion noted. 2. Hyperlipidemia 3. Status post left hip fracture after fall. 07/2020, status post surgical repair 4. Diabetes mellitus type 2 5. Coronary artery disease A. [facility], 05/2020 ANGIOGRAPHIC RESULTS The left main artery Has an ostial 10% stenosis The left anterior descending artery Has proximal 30 to 40% stenoses with additional mid vessel 40% stenoses followed by a mid vessel to distal focal 60% stenosis and a 2 mm vessel along a tortuous bend. The entire vessel has diffuse calcification is tortuous and small caliber in nature The circumflex artery Is a nondominant yet still large vessel giving rise to a single large first obtuse marginal artery. Proximally there are 10% stenoses. The large first obtuse marginal artery is 2.75 mm in diameter is tortuous and supplies a large amount of myocardium. This vessel has proximal 30% followed by 40% stenosis along tortuous bands The right coronary artery Is a dominant vessel and has proximal and mid vessel 10% luminal irregularities. The distal 2 large branches have diffuse 20% stenoses throughout The [place] ventriculogram reveals Preserved 60% The left ventricular end-diastolic pressure 15 mmHg IMPRESSION Coronary disease as described above Usually moderately diseased LAD throughout the proximal mid and distal segment as described above Mild to moderate disease as described above in the circumflex artery Preserved ejection fraction Mildly elevated LVEDP PLAN 1. Medical management 2. I am not in favor of revascularizing any of the LAD. This is a small caliber vessel. Although stents could be placed in this vessel due to its diffuse tortuosity and small caliber in nature it does not make additional stenting ideal. I would maximize medical management and antianginal medications and only proceed with coronary stenting if recalcitrant angina occurred 3. Aggressive risk factor modification Electronically signed by : Calixto Stevenson, 05/09/2020 14:26:24 History of present illness: Pt presents to ED to r/t family wanting pt evaluated r/t pt having a change in mental status. Pt is Covid positive, was rapid tested on 08/18/20 at [facility]. Pt is alert, oriented to person only, pt has rapid respirations, SaO2 92% on RA. This is a 79-year-old female presented to the emergency department from senior care facility with altered mental status. The patient had a recent left hip replacement. The family states that she has been having some confusion over the last week. She was diagnosed with coronavirus 4 days ago. She is not been complaining of any difficulty breathing, however has had a mild cough. Patient is alert and oriented x1 on initial examination. She is found to be in atrial fibrillation with rapid ventricular rate. She holt
--- NOTE | 2020-08-22 12:00 | CA_ITS ---
APPROVED REPORT Bilateral Lower Extremity Venous Study for DVT. 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: CT Indications Pulmonary Embolism Pulmonary embolus Past History Pulmonary Embolism Vein Imaging CFV (R): Partially Compressible SFJ (R): compressive, spontaneous, phasic, augmentation FEM (R): Partially Compressible POP (R): Partially Compressible DFV (R): Partially Compressible PTV (R): Partially Compressible GSV (R): compressive, spontaneous, phasic, augmentation SSV (R): Not Visualized Peroneals (R):Partially Compressible GAS (R): Partially Compressible EIV (L): Not Visualized CFV (L): Partially Compressible SFJ (L): Partially Compressible FEM (L): Partially Compressible POP (L): Partially Compressible DFV (L): Partially Compressible PTV (L): Partially Compressible GSV (L): compressive, spontaneous, phasic, augmentation SSV (L): Not Visualized Peroneals (L):Non-Compressible GAS (L): Partially Compressible Findings RLE positive for DVT CFV, SFV, POP, PT, PERNEAL, Calf veins. Negative for SVT. LLE positive for DVT CFV, SFV, POP, PT , PERNEAL, Calf veins. Negative for SVT. Conclusion RLE positive for DVT CFV, SFV, POP, PT, PERNEAL, Calf veins. Negative for SVT. LLE positive for DVT CFV, SFV, POP, PT , PERNEAL, Calf veins. Negative for SVT. RN notified. 1400 Electronically signed by : Torsten Esquivel MD 08/22/2020 15:13:49
--- NOTE | 2020-08-22 12:00 | PC.NURSE ---
PER Ebenezer GARCIA PA- INCREASE CARDIZEM TO 20ML/HR.
--- NOTE | 2020-08-22 13:57 | HMH.PULMCON ---
*Admission Date: 08/21/20 *Reason for consult:: COVID-19 pneumonia *History of present illness: Ms. Pérez is a 79-year-old female with no prior respiratory complaints never smoker not on any long-term oxygen therapy presented to the hospital with worsening shortness of breath and eventually found to have COVID-19 pneumonia along with sub-acute PE, and pulmonary was called for further management. [facility] History Medical History: Reports:: Arrhythmia, Atherosclerotic Heart Disease, Cancer, Coronary Artery Disease, Diabetes Mellitus Type 2, Hyperlipidemia, Hypertension Denies:: Diabetes Mellitus Type 1, Internal Pacemaker, MRSA, Seizures *Have you ever received a pneumonia vaccine?: No *Have you received a flu vaccine this season?: No Other Medical History: Reports: Arthritis, Cataracts, Hypothyroidism. Denies: Blood Transfusion Reaction Laterality Cases: Left: Arthroscopy Hip Other Surgeries: Yes: Cancer Surgery (nose), Cardiac Catheterization, Dilation and Curettage, Skin Cancer Excision, Other (cataracts). No: Pacemaker Amputation: No Fractures: No - *Social History Smoking Status: Never smoker Alcohol Intake: never Alcohol Intake Frequency:: other Substance Use Type: denies use *Occupational Status:: retired Housing: house Household Members: spouse *Travel in the last 8 weeks: None Family Hx:: Heart Attack ROS - Cons Reports anorexia, Reports fatigue - Card Reports shortness of breath, Reports shortness of breath with activity, Reports leg swelling - Resp Respiratory: Reports chest congestion, Reports cough, Reports non-productive cough, Reports dyspnea, Reports dyspnea on exertion, Denies excessive phlegm production, Denies coughing up blood, Denies pain on inspiration Meds Home Medications Medication Instructions Recorded Confirmed Type cyanocobalamin (vitamin B-12) 1,000 mcg IM MONTHLY #1 ml 07/21/20 08/22/20 Rx 1,000 mcg/mL injection solution Metformin HCl [Glucophage] 1,000 mg PO BIDWM 07/24/20 08/22/20 History Primidone 200 mg PO BID 07/24/20 08/22/20 History Topiramate 50 mg PO HS 07/24/20 08/22/20 History glipizide 10 mg tablet, extended 10 mg PO DAILY 08/15/20 08/22/20 History release 24 hr metoprolol succinate 25 mg 25 mg PO DAILY 08/15/20 08/22/20 History tablet,extended release 24 hr Acetaminophen [Acetaminophen Extra 500 mg PO Q4HP PRN 08/22/20 08/22/20 History Strength] Albuterol Sulfate [Albuterol 3 ml IH Q4HP PRN 08/22/20 08/22/20 History 0.083% 2.5mg/3mL neb] Albuterol Sulfate [Proair Hfa] 1 puff IH Q4H 08/22/20 08/22/20 History Collagenase Clostridium Hist. 1 applicatio TP DAILY 08/22/20 08/22/20 History [Santyl] Guaifenesin/Dextromethorphan 1 each PO BID 08/22/20 08/22/20 History [Mucinex Dm ER 600-30 mg Tablet] Insulin Aspart [Novolog Flexpen] 0 unit SQ DIRECTED 08/22/20 08/22/20 History Oxycodone HCl/Acetaminophen 1 tab PO Q4HP PRN 08/22/20 08/22/20 History [Percocet 5/325mg tablet] Pantoprazole Sodium [Protonix 40mg 40 mg PO HS 08/22/20 08/22/20 History tablet] Saccharomyces Boulardii [Florastor] 250 mg PO DAILY 08/22/20 08/22/20 History ondansetron HCL [Ondansetron 4mg 4 mg PO Q6HP PRN 08/22/20 08/22/20 History tab*] polyethylene glycoL 3350 [Miralax 17 gm PO DAILYP PRN 08/22/20 08/22/20 History 17gm Packet] Allergies Allergy/AdvReac Type Severity Reaction Status Date / Time No Known Allergies Allergy Verified 08/10/20 14:53 Exam - Constitutional Constitutional:: no acute distress, comfortable - HENMI Exam [facility]: normocephalic, atraumatic - Eye Exam Eyes:: eyelids normal - Neck Exam Neck:: normal visual inspection - Respiratory Exam Respiratory:: able to speak in complete sentences, crackles - Cardiovascular Exam Cardiac:: S1, S2 - GI Exam GI:: soft - Skin Exam Skin: warm, no rash - Neurological Exam Neurological: alert, awake, normal cognition - Extremities Exam Extremities: no cyanosis, no clu
[2020-08-22 14:32] LABS: D-Dimer 1.76 ug/mL (0.0-0.5)
[2020-08-22 17:10] LABS: POC Glucose,Bedside 362 (70-110)
--- NOTE | 2020-08-22 17:16 | PC.NURSE ---
page dr. joseph at [phone] regarding blood glucose. awaiting call back.
--- NOTE | 2020-08-22 18:08 | PC.NURSE ---
PT HAS DONE WELL TODAY. PT HAS HAD SOME CONFUSION ON AND OFF THIS SHIFT, EASILY ORIENTED. PT WAS TURNED Q2HR OFF BOTTOM. DRESSING TO BOTTOM WAS REPLACED. PT WAS GIVEN ORAL CARE. PT DID NOT EAT ANYTHING FOR LUNCH OR DINNER BUT DID DRINK TWO ENSURES FOR BOTH MEALS. PT ON CARDIZEM GTT- INFUSING AT 20MG/HR AT THIS TIME. HR RANGING 115-125BPM. OTHER VSS. WILL CONT. TO MONITOR.
--- NOTE | 2020-08-22 18:34 | PC.WOUNDNOTE ---
Wound Location: Length: [id number] AND [id number] Width: Depth: 2CM Undermining Y/N: Tunneling cm: Granulation %: Slough/necrotic tissue %: Inflammation/swelling Y/N: Pain and/or tenderness Y/N: Exudate: Serosanguinous Sanguinous Serosanguinous Seropurulent Purulent Color: Red Yellow Consistency: Thin Amount: Scant Odor Y/N:
[2020-08-22 21:30] LABS: POC Glucose,Bedside 214 (70-110)
[2020-08-23] VITALS (18 sets, daily range): BP systolic 101–167; BP diastolic 39–91; PULSE 95–150; RESP 16–24; TEMP 36.8–37.1; O2SAT 92–100; BMI 29.6
--- NOTE | 2020-08-23 05:37 | PC.NURSE ---
Pt alert to self this shift and has slept on and off through the night. pt has remained on RA with sats in the high 90s. Lungs CTA, but diminished. Pt turned q2h, allevyn over stage 2/3 DTI on coccyx. bowel sounds x4, abd soft and nontender. C/o pain behind left shoulder, tylenol administered per MAR. PT drank a cup of water this shift but has had no other intake. Mi draining adequate urine. Pt has remained on Cardizem gtt at 20ml/hr, HR in 100-110s. VSS, call light in reach, no concerns at this time.
[2020-08-23 06:32] LABS: Basophils % 0.1 % (0.1-2.0); Hematocrit 41.4 % (37.0-47.0); Hemoglobin 13.1 g/dL (12.2-16.2); Lymphocytes # 0.4 K/mm3 (0.7-4.5); Lymphocytes % 7.9 % (10-50); Mean Corpuscular HGB Conc 31.6 g/dL (31.8-35.4); Mean Corpuscular Hemoglobin 28.9 pg (27.0-31.2); Mean Corpuscular Volume 91.6 fl (81-99); Mean Platelet Volume 9.6 fl (7.4-10.4); Monocytes # 0.4 K/mm3 (0.1-1.0); Monocytes % 7.9 % (1.7-9.3); Neutrophils # 4.7 K/mm3 (1.8-7.8); Platelet Count 167 K/mm3 (142-424); Red Blood Count 4.52 M/mm3 (4.20-5.40); Red Cell Distribution Width 16.8 % (11.5-17.5); White Blood Count 5.5 K/mm3 (4.8-10.8)
[2020-08-23 06:34] LABS: Alanine Aminotransferase 48 U/L (12-78); Albumin Level 2.9 g/dl (3.5-5.0); Albumin/Globulin Ratio 1.1 (1.1-1.8); Alkaline Phosphatase 79 U/L (38-126); Aspartate Amino Transferase 52 U/L (14-36); Bilirubin,Total 0.7 mg/dl (0.2-1.3); Blood Urea Nitrogen 52 mg/dl (7-17); Calcium 8.1 mg/dl (8.4-10.2); Carbon Dioxide 14 mmol/L (22.0-30.0); Chloride 108 mmol/L (98-107); Creatinine Clearance Estimated 52 mL/min (50-200); Estimated Glomerular Filt Rate 81 ml/min (>60); GFR (African American) 97 ML/MIN (>60); Globulin 2.7 g/dL (1.3-3.2); Glucose 365 mg/dl (74-100); Sodium 139 mmol/L (136-145); Total Protein,Serum 5.6 g/dl (6.3-8.2)
[2020-08-23 06:48] LABS: POC Glucose,Bedside 397 (70-110)
[2020-08-23 09:10] LABS: NT Pro Brain Natriuretic Pep. 12900 pg/mL (0-450); Troponin I 0.06 ng/ml (0.00-0.034)
--- NOTE | 2020-08-23 09:41 | HMH.ACPN2 ---
Internal Medicine - PN: Subj *Date: 08/23/20 *Time: 11:21 Interval history: 79-year-old female patient sitting up in bed in no respiratory distress, oxygen saturations 97% on room air. She reports she is feeling better requesting to go home, discussed with patient there are other issues besides her shortness of breath that we are looking into with the movement such as PE and DVTs. HR 103's still on Dilt gtt. Venous BLE Doppler: Conclusion RLE positive for DVT CFV, SFV, POP, PT, PERNEAL, Calf veins. Negative for SVT. LLE positive for DVT CFV, SFV, POP, PT , PERNEAL, Calf veins. Negative for SVT. RN notified. 1400 Electronically signed by : Torsten Esquivel Exam Vital signs and Labs for Last 24 Hours: Temp Pulse Resp BP Pulse Ox 98.8 F 126 H 24 149/77 H 100 08/23/20 08:00 08/23/20 07:00 08/23/20 07:00 08/23/20 07:00 08/23/20 07:00 Laboratory Results - last 24 hr 08/21/20 23:14: POC Glucose 214 H 08/22/20 09:46: PT 24.8 H, INR 2.42 H 08/22/20 09:46: D-Dimer 1.76 H 08/22/20 10:35: POC Glucose 319 H* 08/22/20 17:00: POC Glucose 362 H* 08/23/20 05:57: POC Glucose 397 H* 08/23/20 06:00: Sodium 139, Potassium 5.0, Chloride 108 H, Carbon Dioxide 14 L D, Anion Gap 22.0 H, BUN 52 H, Creatinine 0.70, Estimated Creat Clear 52, Estimated GFR 81, Est GFR ( Amer) 97, Glucose 365 H, Calcium 8.1 L, Total Bilirubin 0.7, AST 52 H, ALT 48, Alkaline Phosphatase 79, Total Protein 5.6 L, Albumin 2.9 L, Globulin 2.7, Albumin/Globulin Ratio 1.1 08/23/20 06:00: WBC 5.5, RBC 4.52, Hgb 13.1, Hct 41.4, MCV 91.6, MCH 28.9, MCHC 31.6 L, RDW 16.8, Plt Count 167, MPV 9.6, Neut % (Auto) 84.0 H, Lymph % (Auto) 7.9 L, [place] % (Auto) 7.9, Eos % (Auto) 0.0 L, Baso % (Auto) 0.1, Neut # (Auto) 4.7, Lymph # (Auto) 0.4 L, [place] # (Auto) 0.4, Eos # (Auto) 0.0, Baso # (Auto) 0.0 08/23/20 06:00: Troponin I 0.06 H, NT-Pro-B Natriuret Pep 08028 H I & O for Last 24 hours: Intake & Output 08/20/20 08/21/20 08/22/20 08/23/20 23:59 23:59 23:59 23:59 Intake Total 2300 / 2300 480 / 480 240 / 240 Output Total 2800 / 2975 175 / 175 Balance 2300 / 500 -2320 / -2495 65 / 65 Weight 156 lb 8 oz 161 lb 1 oz Microbiology Reports for the Last 24 Hours: Microbiology 08/21/20 15:54 Urethra Urine Culture - Preliminary NO GROWTH AFTER 24 HOURS - Constitutional no acute distress, chronically ill appearing - *Routine HEENT Exam Head: Present: normocephalic Eye: Present: EOMI ENT: Present: mucous membranes moist - *Routine Neck Exam Present: trachea midline. Absent: tracheal deviation - *Routine Respiratory Exam Present: decreased breath sounds. Absent: accessory muscle use - *Routine Cardiovascular Exam Present: irregularly irregular - *Routine Abdominal Exam Present: soft, normoactive bowel sounds. Absent: tenderness, firm - *Routine Extremities Exam Present: pulses intact. Absent: cyanosis, clubbing, calf tenderness - *Routine Skin Exam Present: warm, wounds. Absent: cyanosis, erythema - *Routine Neurological Exam Present: alert, altered mental status - Routine Psychiatric Exam Present: normal affect Assessment and Plan (1) Acute respiratory failure due to COVID-19 Status: Acute Category: Medical Code(s): U07.1 - COVID-19; J96.00 - Acute respiratory failure, unspecified whether with hypoxia or hypercapnia (2) Atrial fibrillation with rapid ventricular response Status: Acute Category: Medical Code(s): I48.91 - Unspecified atrial fibrillation (3) Cardiomyopathy, nonischemic Status: Acute Category: Medical Code(s): I42.8 - Other cardiomyopathies (4) Delirium due to general medical condition Status: Acute Category: Medical Code(s): F05 - Delirium due to known physiological condition (5) Pneumonia of right lower lobe due to infectious organism Status: Acute Category: Medical Code(s): J18.9 - Pneumonia, unspecified organism (6) Pulmonary embolus St
[2020-08-23 10:23] LABS: INR 1.47 (0.9-1.1); Prothrombin Time 15.8 seconds (9.4-11.8)
--- NOTE | 2020-08-23 10:30 | HMH.PNCARD ---
Subjective Date: 08/23/20 Time: 10:30 Principal diagnosis: COVID, PE, DVT, CM Interval history: 79-year-old white female in bed in no acute distress but looks fatigued and tired. Telemetry still shows atrial fibrillation at a rate of 120 to 140 bpm despite IV diltiazem at 20 mg/h and metoprolol 25 mg twice daily. Echocardiogram shows ejection fraction of 30% with multiple wall motion abnormalities and mild RV enlargement with normal contractility. Patient did have cardiac catheterization in May 2020 that showed mild to moderate coronary artery disease and was felt to best be treated medically. Ejection fraction at that time was about 60%. In light of the patient's recent fall, surgery and Covid infection it is felt that she has developed a stress cardiomyopathy which is contributed to a low cardiac output state and the development of DVT bilaterally despite DVT prophylactic treatment with Lovenox. Exam Vital signs and Labs for Last 24 Hours: Temp Pulse Resp BP Pulse Ox 98.8 F 126 H 24 149/77 H 100 08/23/20 08:00 08/23/20 07:00 08/23/20 07:00 08/23/20 07:00 08/23/20 07:00 Laboratory Results - last 24 hr 08/21/20 23:14: POC Glucose 214 H 08/22/20 09:46: PT 24.8 H, INR 2.42 H 08/22/20 09:46: D-Dimer 1.76 H 08/22/20 10:35: POC Glucose 319 H* 08/22/20 17:00: POC Glucose 362 H* 08/23/20 05:57: POC Glucose 397 H* 08/23/20 06:00: Sodium 139, Potassium 5.0, Chloride 108 H, Carbon Dioxide 14 L D, Anion Gap 22.0 H, BUN 52 H, Creatinine 0.70, Estimated Creat Clear 52, Estimated GFR 81, Est GFR ( Amer) 97, Glucose 365 H, Calcium 8.1 L, Total Bilirubin 0.7, AST 52 H, ALT 48, Alkaline Phosphatase 79, Total Protein 5.6 L, Albumin 2.9 L, Globulin 2.7, Albumin/Globulin Ratio 1.1 08/23/20 06:00: WBC 5.5, RBC 4.52, Hgb 13.1, Hct 41.4, MCV 91.6, MCH 28.9, MCHC 31.6 L, RDW 16.8, Plt Count 167, MPV 9.6, Neut % (Auto) 84.0 H, Lymph % (Auto) 7.9 L, [place] % (Auto) 7.9, Eos % (Auto) 0.0 L, Baso % (Auto) 0.1, Neut # (Auto) 4.7, Lymph # (Auto) 0.4 L, [place] # (Auto) 0.4, Eos # (Auto) 0.0, Baso # (Auto) 0.0 08/23/20 06:00: Troponin I 0.06 H, NT-Pro-B Natriuret Pep 14884 H 08/23/20 09:30: PT 15.8 H, INR 1.47 H I & O for Last 24 hours: Intake & Output 08/20/20 08/21/20 08/22/20 08/23/20 11:59 11:59 11:59 11:59 Intake Total 2540 / 2540 480 / 480 Output Total 1800 / 1800 1175 / 1175 Balance 740 / 740 -695 / -695 Weight 156 lb 8 oz 161 lb 1 oz Microbiology Reports for the Last 24 Hours: Microbiology 08/21/20 15:54 Urethra Urine Culture - Preliminary NO GROWTH AFTER 24 HOURS - Constitutional no acute distress, thin, chronically ill appearing, cooperative - *Routine Respiratory Exam Present: CTA bilaterally, diminished air movement - *Routine Cardiovascular Exam Present: tachycardia, irregular rhythm - *Routine Extremities Exam Present: edema. Absent: cyanosis, clubbing - *Routine Neurological Exam Present: alert, oriented X3 Progress Note: A&P (1) Acute respiratory failure due to COVID-19 Status: Acute (2) Atrial fibrillation with rapid ventricular response Status: Acute Assessment and plan: We will increase metoprolol to 50 mg twice daily. If blood pressure begins to drop then will decrease diltiazem. (3) Cardiomyopathy, nonischemic Status: Acute Assessment and plan: Due to the patient's nonischemic cardiomyopathy, will add Entresto and increase her metoprolol therapy. Will reduce diltiazem as heart rate allows. Hold off on diuretic therapy at this time as patient is most likely mildly dehydrated with elevated BUN. (4) Delirium due to general medical condition Status: Acute (5) Pneumonia of right lower lobe due to infectious organism Status: Acute (6) Pulmonary embolus Status: Acute Assessment and plan: Switch Lovenox to Xarelto 15 mg twice daily for 21 days and then 20 mg daily thereafter. No IVC filter at this time. (7) CAD ([place]
--- NOTE | 2020-08-23 16:13 | HMH.PULMPN ---
Internal Medicine - PN: Subj *Date: 08/23/20 *Time: 16:13 Interval history: No acute respiratory events overnight. Exam - Constitutional Constitutional:: comfortable - Respiratory Exam Respiratory:: lungs clear, normal breath sounds - GI Exam GI:: soft, no hepatosplenomegaly - Neurological Exam Neurological: awake - Extremities Exam Extremities: no cyanosis, no clubbing Assessment and Plan (1) Acute respiratory failure due to COVID-19 Status: Acute Category: Medical Code(s): U07.1 - COVID-19; J96.00 - Acute respiratory failure, unspecified whether with hypoxia or hypercapnia (2) Atrial fibrillation with rapid ventricular response Status: Acute Category: Medical Code(s): I48.91 - Unspecified atrial fibrillation (3) Cardiomyopathy, nonischemic Status: Acute Category: Medical Code(s): I42.8 - Other cardiomyopathies (4) Delirium due to general medical condition Status: Acute Category: Medical Code(s): F05 - Delirium due to known physiological condition (5) Pneumonia of right lower lobe due to infectious organism Status: Acute Category: Medical Code(s): J18.9 - Pneumonia, unspecified organism (6) Pulmonary embolus Status: Acute Category: Medical Code(s): I26.99 - Other pulmonary embolism without acute cor pulmonale (7) CAD (coronary artery disease) Status: Chronic Qualifiers: Coronary Disease-Associated Artery/Lesion type: [place] artery [place] vs. transplanted heart: [place] heart Associated angina: without angina Qualified Code(s): I25.10 - Atherosclerotic heart disease of [place] coronary artery without angina pectoris Category: Medical Code(s): I25.10 - Atherosclerotic heart disease of [place] coronary artery without angina pectoris (8) DM2 (diabetes mellitus, type 2) Status: Chronic Qualifiers: Diabetes mellitus lumber salvager insulin use: without detention use Diabetes mellitus complication status: without complication Qualified Code(s): E11.9 - Type 2 diabetes mellitus without complications Category: Medical Code(s): E11.9 - Type 2 diabetes mellitus without complications (9) HLD (hyperlipidemia) Status: Chronic Qualifiers: Hyperlipidemia type: mixed hyperlipidemia Qualified Code(s): E78.2 - Mixed hyperlipidemia Category: Medical Code(s): E78.5 - Hyperlipidemia, unspecified (10) HTN (hypertension) Status: Chronic Qualifiers: Hypertension type: essential hypertension Qualified Code(s): I10 - Essential (primary) hypertension Category: Medical Code(s): I10 - Essential (primary) hypertension (11) Pressure ulcer Status: Acute Category: Medical Code(s): L89.90 - Pressure ulcer of unspecified site, unspecified stage - Assessment and plan all Dx Assessment and Plan for all problems:: #COVID-19 pneumonia: #Pulmonary embolism: Ms. Pérez is a 79-year-old male never smoker no prior respiratory complaints presented with worsening respiratory failure and found to have COVID-19 pneumonia along with pulmonary embolism on her CT PE scan. CT PE also showed evidence of volume overload with bilateral effusions, right greater than left. Her CT however only mild pulmonary infiltrates. Patient initially was placed on 2 L nasal cannula, rapidly weaned to room air within the next 12 hours, has been saturating 100% since then. Auscultation revealed bilateral clear breath sounds. Plan: - Continue ceftriaxone doxycycline for COVID-19 pneumonia, can de-escalate levofloxacin on discharge per - Continue remdesivir until discharge, discontinued dexamethasone - DuoNebs every 6 hours as needed - Nasal cannula supplementation as needed to maintain saturations okay to 92%. #Pulmonary embolism likely provoked secondary to COVID-19 pneumonia #Bilateral lower extremity deep vein thrombosis: Patient also had a recent fall and knee surgery which might also be contributing to this provoked PE CT showed evidence of right heart strain with
--- NOTE | 2020-08-23 18:37 | PC.NURSE ---
Alert to self. She remains on RA with O2 sats consistently in the upper 90's. Lungs are diminished. Dressing to coccyx changed. Dressing to left hip is clean, dry and intact. Mi is to bedside draining randell colored urine. She had approx 800 mls out this shift. Cardizem gtt still at 20mg/hr with HR in 110's. She had 1 loose BM this shift. No changes from previous assessment. Will report to oncoming nurse.
[2020-08-23 22:07] LABS: POC Glucose,Bedside 275 (70-110)
--- NOTE | 2020-08-23 22:57 | PC.NURSE ---
2100 COURTESY ROUND TRASH EMPTIED AND GLOVES EMPTIED
[2020-08-24] VITALS (13 sets, daily range): BP systolic 102–134; BP diastolic 63–82; PULSE 20–130; RESP 18–90; TEMP 36.4–36.7; O2SAT 96–100; BMI 29.6
[2020-08-24 02:36] LABS: POC Glucose,Bedside 363 (70-110)
[2020-08-24 02:36] LABS: POC Glucose,Bedside 369 (70-110)
[2020-08-24 02:36] LABS: POC Glucose,Bedside 328 (70-110)
--- NOTE | 2020-08-24 04:35 | PC.NURSE ---
Pt alert to self and slept well through the night. No c/o pain or discomfort. Pt turned q2h and heels floated with heel protectors on. Allevyn on coccyx and r hip incision dressing c/d/i/. Pt was unable to swallow meds but tolerated well when crushed in thickened liquids. Pt sats in upper 90s on room air. lungs CTA but diminished. bowel sounds positive x4, abd soft abd nontender. alberto draining adequate yellow urine. Cardizem gtt @ 20ml/hr, HR in the 100-110s. VSS, call light in reach, no concerns at this time.
[2020-08-24 06:23] LABS: Basophils % 0.4 % (0.1-2.0); Eosinophils % 0.3 % (0.1-12.0); Hematocrit 40.7 % (37.0-47.0); Hemoglobin 13.1 g/dL (12.2-16.2); Lymphocytes # 0.5 K/mm3 (0.7-4.5); Lymphocytes % 10.4 % (10-50); Mean Corpuscular HGB Conc 32.2 g/dL (31.8-35.4); Mean Corpuscular Hemoglobin 28.6 pg (27.0-31.2); Mean Corpuscular Volume 88.8 fl (81-99); Mean Platelet Volume 9.1 fl (7.4-10.4); Monocytes # 0.5 K/mm3 (0.1-1.0); Monocytes % 9.3 % (1.7-9.3); Neutrophils # 4.1 K/mm3 (1.8-7.8); Neutrophils % 79.6 % (37.0-80.0); Platelet Count 149 K/mm3 (142-424); Red Blood Count 4.59 M/mm3 (4.20-5.40); Red Cell Distribution Width 16.6 % (11.5-17.5); White Blood Count 5.2 K/mm3 (4.8-10.8)
[2020-08-24 06:27] LABS: POC Glucose,Bedside 193 (70-110)
[2020-08-24 06:39] LABS: Alanine Aminotransferase 33 U/L (12-78); Albumin Level 2.3 g/dl (3.5-5.0); Albumin/Globulin Ratio 0.9 (1.1-1.8); Alkaline Phosphatase 60 U/L (38-126); Anion Gap 9.1 mEq/L (5-15); Aspartate Amino Transferase 43 U/L (14-36); Bilirubin,Total 0.6 mg/dl (0.2-1.3); Blood Urea Nitrogen 37 mg/dl (7-17); Calcium 7.7 mg/dl (8.4-10.2); Carbon Dioxide 23 mmol/L (22.0-30.0); Chloride 114 mmol/L (98-107); Creatinine Clearance Estimated 52 mL/min (50-200); Estimated Glomerular Filt Rate 119 ml/min (>60); GFR (African American) 144 ML/MIN (>60); Globulin 2.5 g/dL (1.3-3.2); Glucose 197 mg/dl (74-100); Potassium 4.1 mmoL/L (3.5-5.1); Sodium 142 mmol/L (136-145); Total Protein,Serum 4.8 g/dl (6.3-8.2)
--- NOTE | 2020-08-24 06:59 | PC.NURSE ---
0600 COURTESY ROUND TRASH EMPTIED AND WATER REFILLED
[2020-08-24 08:04] LABS: INR 1.95 (0.9-1.1); Prothrombin Time 20.4 seconds (9.4-11.8)
--- NOTE | 2020-08-24 08:57 | HMH.PULMPN ---
Internal Medicine - PN: Subj *Date: 08/24/20 *Time: 11:28 Interval history: No acute respirations overnight. Patient remained on room air saturating 100%. Exam - Constitutional Constitutional:: no acute distress, comfortable - HENMT Exam HENMT: normocephalic, atraumatic - Respiratory Exam Respiratory:: able to speak in complete sentences, lungs clear, normal breath sounds - GI Exam GI:: soft - Skin Exam Skin: warm, no rash - Neurological Exam Neurological: alert, awake - Extremities Exam Extremities: no cyanosis, no clubbing, edema Assessment and Plan (1) Acute respiratory failure due to COVID-19 Status: Acute Category: Medical Code(s): U07.1 - COVID-19; J96.00 - Acute respiratory failure, unspecified whether with hypoxia or hypercapnia (2) Atrial fibrillation with rapid ventricular response Status: Acute Category: Medical Code(s): I48.91 - Unspecified atrial fibrillation (3) Cardiomyopathy, nonischemic Status: Acute Category: Medical Code(s): I42.8 - Other cardiomyopathies (4) Delirium due to general medical condition Status: Acute Category: Medical Code(s): F05 - Delirium due to known physiological condition (5) Pneumonia of right lower lobe due to infectious organism Status: Acute Category: Medical Code(s): J18.9 - Pneumonia, unspecified organism (6) Pulmonary embolus Status: Acute Category: Medical Code(s): I26.99 - Other pulmonary embolism without acute cor pulmonale (7) CAD (coronary artery disease) Status: Chronic Qualifiers: Coronary Disease-Associated Artery/Lesion type: [place] artery [place] vs. transplanted heart: [place] heart Associated angina: without angina Qualified Code(s): I25.10 - Atherosclerotic heart disease of [place] coronary artery without angina pectoris Category: Medical Code(s): I25.10 - Atherosclerotic heart disease of [place] coronary artery without angina pectoris (8) DM2 (diabetes mellitus, type 2) Status: Chronic Qualifiers: Diabetes mellitus prison insulin use: without termite inspector use Diabetes mellitus complication status: without complication Qualified Code(s): E11.9 - Type 2 diabetes mellitus without complications Category: Medical Code(s): E11.9 - Type 2 diabetes mellitus without complications (9) HLD (hyperlipidemia) Status: Chronic Qualifiers: Hyperlipidemia type: mixed hyperlipidemia Qualified Code(s): E78.2 - Mixed hyperlipidemia Category: Medical Code(s): E78.5 - Hyperlipidemia, unspecified (10) HTN (hypertension) Status: Chronic Qualifiers: Hypertension type: essential hypertension Qualified Code(s): I10 - Essential (primary) hypertension Category: Medical Code(s): I10 - Essential (primary) hypertension (11) Pressure ulcer Status: Acute Category: Medical Code(s): L89.90 - Pressure ulcer of unspecified site, unspecified stage - Assessment and plan all Dx Assessment and Plan for all problems:: #COVID-19 pneumonia: #Pulmonary embolism: Ms. Pérez is a 79-year-old male never smoker no prior respiratory complaints presented with worsening respiratory failure and found to have COVID-19 pneumonia along with pulmonary embolism on her CT PE scan. CT PE also showed evidence of volume overload with bilateral effusions, right greater than left. CT however showed only mild pulmonary infiltrates. Patient initially was placed on 2 L nasal cannula, rapidly weaned to room air within the next 12 hours, has been saturating 100% since then. Auscultation revealed bilateral clear breath sounds. Plan: - Continue ceftriaxone & doxycycline for COVID-19 pneumonia, can de-escalate levofloxacin on discharge per - Continue remdesivir until discharge - DuoNebs every 6 hours as needed #Pulmonary embolism likely provoked secondary to COVID-19 pneumonia #Bilateral lower extremity deep vein thrombosis: Patient also had a recent fall and knee surgery which might also be contrib
--- NOTE | 2020-08-24 09:22 | HMH.ACPN2 ---
Internal Medicine - PN: Subj *Date: 08/24/20 *Time: 08:30 Interval history: pt sitting up in bed, states she does not know how she feels, just finished eating breakfast Exam Vital signs and Labs for Last 24 Hours: Temp Pulse Resp BP Pulse Ox 98.1 F 103 H 18 134/78 100 08/24/20 04:00 08/24/20 06:00 08/24/20 04:00 08/24/20 06:00 08/24/20 06:00 Laboratory Results - last 24 hr 08/23/20 09:30: PT 15.8 H, INR 1.47 H 08/23/20 11:54: POC Glucose 369 H* 08/23/20 14:16: POC Glucose 363 H* 08/23/20 17:21: POC Glucose 328 H* 08/23/20 21:53: POC Glucose 275 H 08/24/20 05:56: POC Glucose 193 H 08/24/20 06:11: Sodium 142, Potassium 4.1, Chloride 114 H, Carbon Dioxide 23 D, Anion Gap 9.1, BUN 37 H D, Creatinine 0.50 L D, Estimated Creat Clear 52, Estimated GFR 119, Est GFR ( Amer) 144 D, Glucose 197 H, Calcium 7.7 L, Total Bilirubin 0.6, AST 43 H, ALT 33 D, Alkaline Phosphatase 60, Total Protein 4.8 L, Albumin 2.3 L D, Globulin 2.5, Albumin/Globulin Ratio 0.9 L 08/24/20 06:11: WBC 5.2, RBC 4.59, Hgb 13.1, Hct 40.7, MCV 88.8, MCH 28.6, MCHC 32.2, RDW 16.6, Plt Count 149, MPV 9.1, Neut % (Auto) 79.6, Lymph % (Auto) 10.4, [place] % (Auto) 9.3, Eos % (Auto) 0.3, Baso % (Auto) 0.4, Neut # (Auto) 4.1, Lymph # (Auto) 0.5 L, [place] # (Auto) 0.5, Eos # (Auto) 0.0, Baso # (Auto) 0.0 08/24/20 06:55: PT 20.4 H, INR 1.95 H I & O for Last 24 hours: Intake & Output 01/18/21 01/19/21 01/20/21 01/21/21 11:59 11:59 11:59 11:59 Intake Total 2540 / 2540 480 / 480 6344 / 6344 Output Total 1800 / 1800 1175 / 1175 1450 / 1450 Balance 740 / 740 -695 / -695 4894 / 4894 Weight 156 lb 8 oz 161 lb 1 oz 161 lb 1.01 oz Microbiology Reports for the Last 24 Hours: Microbiology 08/21/20 15:54 Urethra Urine Culture - Final NO GROWTH AFTER 48 HOURS 08/21/20 15:45 Blood Blood Culture - Preliminary NO GROWTH AFTER 48 HOURS 08/21/20 15:45 Blood Blood Culture - Preliminary NO GROWTH AFTER 48 HOURS - Constitutional no acute distress - *Routine HEENT Exam Head: Present: normocephalic Eye: Present: PERRL ENT: Present: mucous membranes moist - *Routine Neck Exam Present: supple. Absent: lymphadenopathy - *Routine Respiratory Exam Present: decreased breath sounds, rhonchi - *Routine Cardiovascular Exam Present: irregular rhythm - *Routine Abdominal Exam Present: soft, normoactive bowel sounds. Absent: tenderness - *Routine Extremities Exam Present: normal capillary refill. Absent: cyanosis, clubbing, edema - *Routine Skin Exam Present: warm. Absent: rash Comments: healing incision to left hip - *Routine Neurological Exam Present: alert - Routine Psychiatric Exam Present: normal affect Assessment and Plan (1) Acute respiratory failure due to COVID-19 Status: Acute Category: Medical Code(s): U07.1 - COVID-19; J96.00 - Acute respiratory failure, unspecified whether with hypoxia or hypercapnia (2) Atrial fibrillation with rapid ventricular response Status: Acute Category: Medical Code(s): I48.91 - Unspecified atrial fibrillation (3) Cardiomyopathy, nonischemic Status: Acute Category: Medical Code(s): I42.8 - Other cardiomyopathies (4) Delirium due to general medical condition Status: Acute Category: Medical Code(s): F05 - Delirium due to known physiological condition (5) Pneumonia of right lower lobe due to infectious organism Status: Acute Category: Medical Code(s): J18.9 - Pneumonia, unspecified organism (6) Pulmonary embolus Status: Acute Category: Medical Code(s): I26.99 - Other pulmonary embolism without acute cor pulmonale (7) CAD (coronary artery disease) Status: Chronic Qualifiers: Coronary Disease-Associated Artery/Lesion type: [place] artery [place] vs. transplanted heart: [place] heart Associated angina: without angina Qualified Code(s): I25.10 - A
--- NOTE | 2020-08-24 10:05 | HMH.PNCARD ---
Subjective Date: 08/24/20 Time: 10:05 Principal diagnosis: COVID, PE, DVT, CM Interval history: 79-year-old white female in bed in no acute distress. Patient slouched over in the bed but denies any chest pain, pressure or tightness. Patient expresses that she does not like being alone. Telemetry continues to show tachycardic rate in the 110 to 120 bpm range. She continues on IV diltiazem at 20 mg/h along with oral metoprolol. Exam Vital signs and Labs for Last 24 Hours: Temp Pulse Resp BP Pulse Ox 98.1 F 111 H 22 132/79 96 08/24/20 04:00 08/24/20 08:00 08/24/20 08:00 08/24/20 08:00 08/24/20 08:00 Laboratory Results - last 24 hr 08/23/20 09:30: PT 15.8 H, INR 1.47 H 08/23/20 11:54: POC Glucose 369 H* 08/23/20 14:16: POC Glucose 363 H* 08/23/20 17:21: POC Glucose 328 H* 08/23/20 21:53: POC Glucose 275 H 08/24/20 05:56: POC Glucose 193 H 08/24/20 06:11: Sodium 142, Potassium 4.1, Chloride 114 H, Carbon Dioxide 23 D, Anion Gap 9.1, BUN 37 H D, Creatinine 0.50 L D, Estimated Creat Clear 52, Estimated GFR 119, Est GFR ( Amer) 144 D, Glucose 197 H, Calcium 7.7 L, Total Bilirubin 0.6, AST 43 H, ALT 33 D, Alkaline Phosphatase 60, Total Protein 4.8 L, Albumin 2.3 L D, Globulin 2.5, Albumin/Globulin Ratio 0.9 L 08/24/20 06:11: WBC 5.2, RBC 4.59, Hgb 13.1, Hct 40.7, MCV 88.8, MCH 28.6, MCHC 32.2, RDW 16.6, Plt Count 149, MPV 9.1, Neut % (Auto) 79.6, Lymph % (Auto) 10.4, [place] % (Auto) 9.3, Eos % (Auto) 0.3, Baso % (Auto) 0.4, Neut # (Auto) 4.1, Lymph # (Auto) 0.5 L, [place] # (Auto) 0.5, Eos # (Auto) 0.0, Baso # (Auto) 0.0 08/24/20 06:55: PT 20.4 H, INR 1.95 H I & O for Last 24 hours: Intake & Output 08/21/20 08/22/20 08/23/20 08/24/20 11:59 11:59 11:59 11:59 Intake Total 2540 / 2540 480 / 480 6344 / 6344 Output Total 1800 / 1800 1175 / 1175 1450 / 1450 Balance 740 / 740 -695 / -695 4894 / 4894 Weight 156 lb 8 oz 161 lb 1 oz 161 lb 1.01 oz Microbiology Reports for the Last 24 Hours: Microbiology 08/21/20 15:54 Urethra Urine Culture - Final NO GROWTH AFTER 48 HOURS 08/21/20 15:45 Blood Blood Culture - Preliminary NO GROWTH AFTER 48 HOURS 08/21/20 15:45 Blood Blood Culture - Preliminary NO GROWTH AFTER 48 HOURS - Constitutional no acute distress - *Routine Respiratory Exam Present: decreased breath sounds, CTA bilaterally - *Routine Cardiovascular Exam Present: tachycardia, irregular rhythm - *Routine Extremities Exam Absent: cyanosis, clubbing, edema - *Routine Neurological Exam Present: alert Progress Note: A&P (1) Acute respiratory failure due to COVID-19 Status: Acute (2) Atrial fibrillation with rapid ventricular response Status: Acute Assessment and plan: On Xarelto therapy. HR control has improved on metoprolol and diltiazem therapy. Will continue to increase metoprolol and reduce diltiazem. (3) Cardiomyopathy, nonischemic Status: Acute Assessment and plan: Continue Entresto and will increase metoprolol as blood pressure tolerates in hopes of decreasing diltiazem and discontinuing it. Not currently a life vest candidate due to mental status. (4) Delirium due to general medical condition Status: Acute (5) Pneumonia of right lower lobe due to infectious organism Status: Acute (6) Pulmonary embolus Status: Acute Assessment and plan: Patient is receiving loading dose of Xarelto 15 mg twice daily for 21 days and then switching to 20 mg daily thereafter for PE with bilateral DVTs. (7) CAD (coronary artery disease) Status: Chronic Assessment and plan: Mildly elevated troponin felt secondary to PE and right heart strain. No plans for cardiac cath in light of recent [facility] 05/2020 with moderate disease relegated to medical therapy. Start ASA 81 mg daily along with statin therapy. (8) DM2 (diabetes mellitus, type 2) Status: Chronic (9) HLD (hyp
--- NOTE | 2020-08-24 10:58 | PC.NURSE ---
pt has cup at bedside. SAmple is unlikly as pt's albiltiy to follow commands is uncertain.
[2020-08-24 12:12] LABS: POC Glucose,Bedside 205 (70-110)
--- NOTE | 2020-08-24 15:42 | PC.NURSE ---
Pt is alert to self. Lungs are clear and she remains on RA w/O2 sats 98-100%. HR has been 80's to 110's. Cardizem gtt currently at 10 mg/hr, will titrate as appropriate. She has been afib on telemetry. Mi is to gravity draining straw colored urine. Pt instructed on sputum production but unable to produce specimen. Cup still at bedside. Dressing to coccyx is clean, dry and intact. Pt reports no complaints or concerns at this time.
[2020-08-24 16:41] LABS: POC Glucose,Bedside 247 (70-110)
[2020-08-24 21:29] LABS: POC Glucose,Bedside 111 (70-110)
[2020-08-25] VITALS (18 sets, daily range): BP systolic 77–141; BP diastolic 42–86; PULSE 66–126; RESP 16–26; TEMP 35.7–36.9; O2SAT 92–100; BMI 29.6
--- NOTE | 2020-08-25 00:09 | PC.NURSE ---
2100 [address] ROUND TRASH AND LINENS EMPTIED
--- NOTE | 2020-08-25 03:21 | PC.NURSE ---
late entry: 2039 Pt was asked during evening med pass about getting cleaned up/taking a bath. pt states that she does not want one today. questions if staff thinks she needs to have a bath every day. pt was informed of importance of daily bathing while in the hospital to help with infection prevention. will ask pt about a bath again later in the shift.
--- NOTE | 2020-08-25 03:27 | PC.NURSE ---
pt sleeping when hr noted in the 70-80 and bp had been consistently in the 70-80 systolic. diltiazem drip was decreased to 5ml/hr. once drip was titrated down pt bp remained stable into the 90's and low 100's. hr remained in the 80-90 as well. will continue to monitor.
[2020-08-25 07:52] LABS: Basophils % 0.1 % (0.1-2.0); Hematocrit 50.7 % (37.0-47.0); Hemoglobin 16.2 g/dL (12.2-16.2); Lymphocytes # 0.7 K/mm3 (0.7-4.5); Mean Corpuscular Hemoglobin 28.4 pg (27.0-31.2); Mean Corpuscular Volume 88.7 fl (81-99); Mean Platelet Volume 9.4 fl (7.4-10.4); Monocytes # 0.5 K/mm3 (0.1-1.0); Monocytes % 5.9 % (1.7-9.3); Neutrophils # 6.9 K/mm3 (1.8-7.8); Neutrophils % 84.9 % (37.0-80.0); Platelet Count 199 K/mm3 (142-424); Red Blood Count 5.72 M/mm3 (4.20-5.40); Red Cell Distribution Width 16.8 % (11.5-17.5); White Blood Count 8.2 K/mm3 (4.8-10.8)
--- NOTE | 2020-08-25 08:20 | PC.NURSE ---
Cardizem increased to 10 mls/hr. HR consistently < 110.
--- NOTE | 2020-08-25 08:39 | HMH.ACPN ---
Internal Medicine - PN: Subj *Date: 08/25/20 *Time: 08:39 Exam Vital signs and Labs for Last 24 Hours: Temp Pulse Resp BP Pulse Ox 97.6 F 100 H 16 77/42 L 94 L 08/24/20 16:00 08/25/20 04:00 08/25/20 02:00 08/25/20 02:00 08/25/20 02:00 Laboratory Results - last 24 hr 08/24/20 11:48: POC Glucose 205 H 08/24/20 16:23: POC Glucose 247 H 08/24/20 21:02: POC Glucose 111 H 08/25/20 06:42: WBC 8.2 D, RBC 5.72 H, Hgb 16.2, Hct 50.7 H, MCV 88.7, MCH 28.4, MCHC 32.0, RDW 16.8, Plt Count 199 D, MPV 9.4, Neut % (Auto) 84.9 H, Lymph % (Auto) 9.0 L, [place] % (Auto) 5.9, Eos % (Auto) 0.0 L, Baso % (Auto) 0.1, Neut # (Auto) 6.9, Lymph # (Auto) 0.7, [place] # (Auto) 0.5, Eos # (Auto) 0.0, Baso # (Auto) 0.0 I & O for Last 24 hours: Intake & Output 08/22/20 08/23/20 08/24/20 08/25/20 23:59 23:59 23:59 23:59 Intake Total 480 / 480 3938 / 4058 4890 / 4890 120 / 120 Output Total 2800 / 2975 1025 / 1025 1100 / 1100 Balance -2320 / -2495 2913 / 3033 3790 / 3790 120 / 120 Weight 73 kg 73.057 kg 73 kg Assessment and Plan (1) Acute respiratory failure due to COVID-19 Status: Acute Category: Medical Code(s): U07.1 - COVID-19; J96.00 - Acute respiratory failure, unspecified whether with hypoxia or hypercapnia (2) Atrial fibrillation with rapid ventricular response Status: Acute Category: Medical Code(s): I48.91 - Unspecified atrial fibrillation (3) Cardiomyopathy, nonischemic Status: Acute Category: Medical Code(s): I42.8 - Other cardiomyopathies (4) Delirium due to general medical condition Status: Acute Category: Medical Code(s): F05 - Delirium due to known physiological condition (5) Pneumonia of right lower lobe due to infectious organism Status: Acute Category: Medical Code(s): J18.9 - Pneumonia, unspecified organism (6) Pulmonary embolus Status: Acute Category: Medical Code(s): I26.99 - Other pulmonary embolism without acute cor pulmonale (7) CAD (coronary artery disease) Status: Chronic Qualifiers: Coronary Disease-Associated Artery/Lesion type: [place] artery [place] vs. transplanted heart: [place] heart Associated angina: without angina Qualified Code(s): I25.10 - Atherosclerotic heart disease of [place] coronary artery without angina pectoris Category: Medical Code(s): I25.10 - Atherosclerotic heart disease of [place] coronary artery without angina pectoris (8) DM2 (diabetes mellitus, type 2) Status: Chronic Qualifiers: Diabetes mellitus mcfp insulin use: without mcfp use Diabetes mellitus complication status: without complication Qualified Code(s): E11.9 - Type 2 diabetes mellitus without complications Category: Medical Code(s): E11.9 - Type 2 diabetes mellitus without complications (9) HLD (hyperlipidemia) Status: Chronic Qualifiers: Hyperlipidemia type: mixed hyperlipidemia Qualified Code(s): E78.2 - Mixed hyperlipidemia Category: Medical Code(s): E78.5 - Hyperlipidemia, unspecified (10) HTN (hypertension) Status: Chronic Qualifiers: Hypertension type: essential hypertension Qualified Code(s): I10 - Essential (primary) hypertension Category: Medical Code(s): I10 - Essential (primary) hypertension (11) Pressure ulcer Status: Acute Category: Medical Code(s): L89.90 - Pressure ulcer of unspecified site, unspecified stage The patient's infection will respond to the chosen ABx?: Yes Is the patient receiving the right drug, dose, and route?: Yes Could a more targeted ABx be ordered?: No (PATIENT AFEBRILE, NO GROWTH IN CULTURES.)
--- NOTE | 2020-08-25 08:53 | HMH.ACPN2 ---
Internal Medicine - PN: Subj *Date: 08/25/20 *Time: 08:00 Interval history: pt states she is very tired Exam Vital signs and Labs for Last 24 Hours: Temp Pulse Resp BP Pulse Ox 97.6 F 110 H 16 77/42 L 94 L 08/24/20 16:00 08/25/20 08:00 08/25/20 02:00 08/25/20 02:00 08/25/20 02:00 Laboratory Results - last 24 hr 08/24/20 11:48: POC Glucose 205 H 08/24/20 16:23: POC Glucose 247 H 08/24/20 21:02: POC Glucose 111 H 08/25/20 06:42: WBC 8.2 D, RBC 5.72 H, Hgb 16.2, Hct 50.7 H, MCV 88.7, MCH 28.4, MCHC 32.0, RDW 16.8, Plt Count 199 D, MPV 9.4, Neut % (Auto) 84.9 H, Lymph % (Auto) 9.0 L, [place] % (Auto) 5.9, Eos % (Auto) 0.0 L, Baso % (Auto) 0.1, Neut # (Auto) 6.9, Lymph # (Auto) 0.7, [place] # (Auto) 0.5, Eos # (Auto) 0.0, Baso # (Auto) 0.0 I & O for Last 24 hours: Intake & Output 08/22/20 08/23/20 08/24/20 08/25/20 11:59 11:59 11:59 11:59 Intake Total 2540 / 2540 480 / 480 6344 / 6344 2364 / 2364 Output Total 1800 / 1800 1175 / 1175 1450 / 1450 500 / 500 Balance 740 / 740 -695 / -695 4894 / 4894 1864 / 1864 Weight 156 lb 8 oz 161 lb 1 oz 161 lb 1.01 oz 160 lb 14.999 oz - Constitutional no acute distress, chronically ill appearing - *Routine HEENT Exam Head: Present: normocephalic Eye: Present: PERRL ENT: Present: mucous membranes moist - *Routine Neck Exam Present: supple. Absent: lymphadenopathy - *Routine Respiratory Exam Present: CTA bilaterally - *Routine Cardiovascular Exam Present: murmur, irregular rhythm - *Routine Abdominal Exam Present: soft, normoactive bowel sounds. Absent: tenderness - *Routine Extremities Exam Present: normal capillary refill. Absent: cyanosis, clubbing, edema - *Routine Skin Exam Present: warm. Absent: rash Comments: healing incision to hip - *Routine Neurological Exam Present: alert - Routine Psychiatric Exam Present: normal affect Assessment and Plan (1) Acute respiratory failure due to COVID-19 Status: Acute Category: Medical Code(s): U07.1 - COVID-19; J96.00 - Acute respiratory failure, unspecified whether with hypoxia or hypercapnia (2) Atrial fibrillation with rapid ventricular response Status: Acute Category: Medical Code(s): I48.91 - Unspecified atrial fibrillation (3) Cardiomyopathy, nonischemic Status: Acute Category: Medical Code(s): I42.8 - Other cardiomyopathies (4) Delirium due to general medical condition Status: Acute Category: Medical Code(s): F05 - Delirium due to known physiological condition (5) Pneumonia of right lower lobe due to infectious organism Status: Acute Category: Medical Code(s): J18.9 - Pneumonia, unspecified organism (6) Pulmonary embolus Status: Acute Category: Medical Code(s): I26.99 - Other pulmonary embolism without acute cor pulmonale (7) CAD (coronary artery disease) Status: Chronic Qualifiers: Coronary Disease-Associated Artery/Lesion type: [place] artery [place] vs. transplanted heart: [place] heart Associated angina: without angina Qualified Code(s): I25.10 - Atherosclerotic heart disease of [place] coronary artery without angina pectoris Category: Medical Code(s): I25.10 - Atherosclerotic heart disease of [place] coronary artery without angina pectoris (8) DM2 (diabetes mellitus, type 2) Status: Chronic Qualifiers: Diabetes mellitus terminal computer operator insulin use: without terminal computer operator use Diabetes mellitus complication status: without complication Qualified Code(s): E11.9 - Type 2 diabetes mellitus without complications Category: Medical Code(s): E11.9 - Type 2 diabetes mellitus without complications (9) HLD (hyperlipidemia) Status: Chronic Qualifiers: Hyperlipidemia type: mixed hyperlipidemia Qualified Code(s): E78.2 - Mixed hyperlipidemia Category: Medical Code(s): E78.5 - Hyperlipidemia, unspecified (10) HTN (hypertension) Status: Chronic Qualifiers: Hypertension type: essential hypertension Stephon
--- NOTE | 2020-08-25 10:02 | PC.NURSE ---
Pt has rested well. skin has been cool to touch most of the shift. rectal temp checked at 0630. 96.9.warm blankets applied. 2+ edema in ble. lung sounds are diminished throughout. bowel sounds active in all quads. nad noted. dressing changed on coccyx following bowel mvmt.
--- NOTE | 2020-08-25 10:25 | HMH.PNCARD ---
Subjective Date: 08/25/20 Time: 09:00 Principal diagnosis: COVID, PE, DVT, CM Interval history: 79-year-old female admitted to [facility] with pneumonia, atrial fibrillation with RVR and respiratory failure. Patient was diagnosed with PE and bilateral DVTs. Patient is currently receiving Xarelto 15 mg twice daily for the PE and bilateral DVTs. Patient denies any bleeding issues. Patient remains in atrial fibrillation with RVR. Heart rate noted 110-118bpm. Patient remains on diltiazem drip. Diltiazem drip noted at 5 mg/hr. Patient also receiving metoprolol 100 mg twice daily for rate control. Patient noted sitting in her bed. Patient is pleasantly confused. Patient is unable to answer questions. Patient did state that she fears for being alone. Echocardiogram revealed EF 30% with segmental wall abnormality. Patient is not a candidate for LifeVest due to mental status. Patient was started on Entresto. On 05/23/20, patient undergo went a left heart catheterization. Medical management noted. Slight swelling noted of the lower extremities. She does have a Mi catheter in place. Discussed plan of care with Dr. Stevenson. At this time we will continue to try to wean patient off diltiazem drip and continue patient on beta-lula for atrial fibrillation with RVR. Continue Xarelto due to PE and bilateral DVTs. Continue to monitor patient's heart rate and BP. Thank you for letting cardiology participate in the care of this patient. Exam Vital signs and Labs for Last 24 Hours: Temp Pulse Resp BP Pulse Ox 97.6 F 110 H 16 106/59 L 97 08/24/20 16:00 08/25/20 08:00 08/25/20 06:00 08/25/20 06:00 08/25/20 06:00 Laboratory Results - last 24 hr 08/24/20 11:48: POC Glucose 205 H 08/24/20 16:23: POC Glucose 247 H 08/24/20 21:02: POC Glucose 111 H 08/25/20 06:42: WBC 8.2 D, RBC 5.72 H, Hgb 16.2, Hct 50.7 H, MCV 88.7, MCH 28.4, MCHC 32.0, RDW 16.8, Plt Count 199 D, MPV 9.4, Neut % (Auto) 84.9 H, Lymph % (Auto) 9.0 L, [place] % (Auto) 5.9, Eos % (Auto) 0.0 L, Baso % (Auto) 0.1, Neut # (Auto) 6.9, Lymph # (Auto) 0.7, [place] # (Auto) 0.5, Eos # (Auto) 0.0, Baso # (Auto) 0.0 I & O for Last 24 hours: Intake & Output 08/22/20 08/23/20 08/24/20 08/25/20 23:59 23:59 23:59 23:59 Intake Total 480 / 480 3938 / 4058 4890 / 4890 1295 / 1295 Output Total 2800 / 2975 1025 / 1025 1100 / 1100 Balance -2320 / -2495 2913 / 3033 3790 / 3790 1295 / 1295 Weight 160 lb 14.999 oz 161 lb 1.01 oz 160 lb 14.999 oz - Constitutional mild distress - *Routine HEENT Exam Head: Present: normocephalic ENT: Present: mucous membranes moist - *Routine Neck Exam Present: supple, full ROM, normal carotid upstroke. Absent: JVD, carotid bruit, lymphadenopathy - *Routine Respiratory Exam Present: accessory muscle use, CTA bilaterally. Absent: wheezes, crackles - *Routine Cardiovascular Exam Present: RRR, Normal S1, Normal S2, tachycardia, irregular rhythm, irregularly irregular. Absent: JVD - *Routine Abdominal Exam Present: soft, normoactive bowel sounds - *Routine Extremities Exam Present: edema, full ROM, pulses intact, normal capillary refill - *Routine Skin Exam Present: intact - *Routine Neurological Exam Present: altered mental status - Routine Psychiatric Exam Present: unable to assess Progress Note: A&P (1) Acute respiratory failure due to COVID-19 Status: Acute (2) Atrial fibrillation with rapid ventricular response Status: Acute (3) Cardiomyopathy, nonischemic Status: Acute (4) Delirium due to general medical condition Status: Acute (5) Pneumonia of right lower lobe due to infectious organism Status: Acute (6) Pulmonary embolus Status: Acute (7) CAD (coronary artery disease) Status: Chronic (8) DM2 (diabetes mellitus, type 2) Status: Chronic (9) HLD (hyperlipidemia) Status: Chronic (10) HTN (hypertension) Status: Chronic (11) Pressure
[2020-08-25 10:30] LABS: Chloride 116 mmol/L (98-107); Potassium 4.4 mmoL/L (3.5-5.1); Sodium 142 mmol/L (136-145)
[2020-08-25 10:32] LABS: Blood Urea Nitrogen 33 mg/dl (7-17); Creatinine Clearance Estimated 52 mL/min (50-200); Estimated Glomerular Filt Rate 154 ml/min (>60); GFR (African American) 186 ML/MIN (>60)
[2020-08-25 10:33] LABS: Alanine Aminotransferase 62 U/L (12-78); Albumin Level 2.3 g/dl (3.5-5.0); Alkaline Phosphatase 92 U/L (38-126); Anion Gap 15.4 mEq/L (5-15); Aspartate Amino Transferase 85 U/L (14-36); Bilirubin,Total 0.9 mg/dl (0.2-1.3); Carbon Dioxide 15 mmol/L (22.0-30.0); Globulin 2.3 g/dL (1.3-3.2); Glucose 206 mg/dl (74-100); Total Protein,Serum 4.6 g/dl (6.3-8.2)
[2020-08-25 12:13] LABS: POC Glucose,Bedside 219 (70-110)
[2020-08-25 14:36] LABS: POC Glucose,Bedside 154 (70-110)
[2020-08-25 16:53] LABS: POC Glucose,Bedside 190 (70-110)
--- NOTE | 2020-08-25 17:46 | DIET.NUTRFU ---
PO intakes 50% + TID supplements, weight stable, BG moderate- avg. 190. Continuing to monitor.
--- NOTE | 2020-08-25 18:00 | PC.NURSE ---
Diltiazem drip titrated from 10 ML/HR to 5 ML/HR at this time.
[2020-08-25 23:00] LABS: POC Glucose,Bedside 190 (70-110)
[2020-08-26] VITALS (15 sets, daily range): BP systolic 100–148; BP diastolic 42–75; PULSE 77–136; RESP 16–21; TEMP 36.1–36.4; O2SAT 94–100; BMI 33.7
[2020-08-26 05:19] LABS: Basophils % 0.3 % (0.1-2.0); Red Blood Count 5.91 M/mm3 (4.20-5.40)
[2020-08-26 05:22] LABS: Hematocrit 53.1 % (37.0-47.0); Hemoglobin 16.7 g/dL (12.2-16.2); Lymphocytes # 0.7 K/mm3 (0.7-4.5); Lymphocytes % 8.1 % (10-50); Mean Corpuscular HGB Conc 31.4 g/dL (31.8-35.4); Mean Corpuscular Hemoglobin 28.2 pg (27.0-31.2); Mean Corpuscular Volume 89.8 fl (81-99); Mean Platelet Volume 9.7 fl (7.4-10.4); Monocytes # 0.5 K/mm3 (0.1-1.0); Monocytes % 5.8 % (1.7-9.3); Neutrophils # 7.5 K/mm3 (1.8-7.8); Neutrophils % 85.8 % (37.0-80.0); Platelet Count 231 K/mm3 (142-424); White Blood Count 8.7 K/mm3 (4.8-10.8)
[2020-08-26 05:24] LABS: Chloride 115 mmol/L (98-107); MANUAL DIFFERENTIAL MANUAL DIFFERENTIAL (MANUAL DIFF); Sodium 139 mmol/L (136-145)
[2020-08-26 05:27] LABS: Alanine Aminotransferase 47 U/L (12-78); Albumin Level 2.1 g/dl (3.5-5.0); Alkaline Phosphatase 80 U/L (38-126); Aspartate Amino Transferase 51 U/L (14-36); Bilirubin,Total 0.7 mg/dl (0.2-1.3); Blood Urea Nitrogen 39 mg/dl (7-17); Calcium 7.6 mg/dl (8.4-10.2); Carbon Dioxide 17 mmol/L (22.0-30.0); Creatinine Clearance Estimated 52 mL/min (50-200); Estimated Glomerular Filt Rate 119 ml/min (>60); GFR (African American) 144 ML/MIN (>60); Globulin 2.2 g/dL (1.3-3.2); Glucose 187 mg/dl (74-100); Total Protein,Serum 4.3 g/dl (6.3-8.2)
[2020-08-26 05:43] LABS: Anisocytosis 1+; Hypochromasia 1+; Lymphocytes % 11 % (10-50); Monocytes % 1 % (2-9); Neutrophils % 84 % (42-76); Platelet Estimate Normal; Total Cells Counted 100
[2020-08-26 06:24] LABS: POC Glucose,Bedside 165 (70-110)
--- NOTE | 2020-08-26 07:59 | PC.NURSE ---
No acute changes noted. Pt remains alert to self. She has rested well this shift. Remains Afib on telemetry. Diltiazem gtt is infusing @ 5 mg/hr. VSS. She remains on RA. Bath given this shift per staff. Medications administered per oct. No other concerns. Will continue to monitor.
[2020-08-26 11:34] LABS: POC Glucose,Bedside 180 (70-110)
--- NOTE | 2020-08-26 13:45 | HMH.ACPN2 ---
Internal Medicine - PN: Subj *Date: 08/26/20 *Time: 13:47 Interval history: uneventful night good hr control w/uptitrated toprol will stop cardizem gtt pleasantly confused drowsy no cp/dyspnea xarelto on board distal feet cold w/o ischemic demarcation imaging studies revd Exam Vital signs and Labs for Last 24 Hours: Temp Pulse Resp BP Pulse Ox 96.9 F L 100 H 20 148/61 H 100 08/26/20 08:00 08/26/20 10:00 08/26/20 10:00 08/26/20 10:00 08/26/20 10:00 Laboratory Results - last 24 hr 08/25/20 05:45: POC Glucose 154 H 08/25/20 16:34: POC Glucose 190 H 08/25/20 21:37: POC Glucose 190 H 08/26/20 04:40: Sodium 139, Potassium 4.0, Chloride 115 H, Carbon Dioxide 17 L, Anion Gap 11.0, BUN 39 H, Creatinine 0.50 L D, Estimated Creat Clear 52, Estimated GFR 119, Est GFR ( Amer) 144 D, Glucose 187 H, Calcium 7.6 L, Total Bilirubin 0.7, AST 51 H D, ALT 47, Alkaline Phosphatase 80, Total Protein 4.3 L, Albumin 2.1 L, Globulin 2.2, Albumin/Globulin Ratio 1.0 L 08/26/20 04:40: WBC 8.7, RBC 5.91 H, Hgb 16.7 H, Hct 53.1 H, MCV 89.8, MCH 28.2, MCHC 31.4 L, RDW 17.0, Plt Count 231, MPV 9.7, Neut % (Auto) 85.8 H, Lymph % (Auto) 8.1 L, [place] % (Auto) 5.8, Eos % (Auto) 0.0 L, Baso % (Auto) 0.3, Neut # (Auto) 7.5, Lymph # (Auto) 0.7, [place] # (Auto) 0.5, Eos # (Auto) 0.0, Baso # (Auto) 0.0, Total Counted 100, Neutrophils % (Manual) 84 H, Band Neutrophils % 4.0, Lymphocytes % (Manual) 11, Monocytes % (Manual) 1 L, Platelet Estimate Normal, Hypochromasia 1+, Anisocytosis 1+ 08/26/20 05:13: POC Glucose 165 H 08/26/20 11:22: POC Glucose 180 H I & O for Last 24 hours: Intake & Output 08/23/20 08/24/20 08/25/20 08/26/20 23:59 23:59 23:59 23:59 Intake Total 3938 / 4058 4890 / 4890 4215 / 4215 120 / 120 Output Total 1025 / 1025 1100 / 1100 Balance 2913 / 3033 3790 / 3790 4215 / 4215 120 / 120 Weight 160 lb 14.999 oz 161 lb 1.01 oz 160 lb 14.999 oz 183 lb 3 oz - Constitutional no acute distress, chronically ill appearing, cooperative, somnolent - *Routine HEENT Exam Head: Present: normocephalic Eye: Present: EOMI, PERRL ENT: Present: mucous membranes moist - *Routine Neck Exam Present: supple. Absent: lymphadenopathy - *Routine Respiratory Exam Present: crackles, diminished air movement. Absent: accessory muscle use, CTA bilaterally, respiratory distress, rhonchi, wheezes - *Routine Cardiovascular Exam Present: RRR - *Routine Abdominal Exam Present: soft, normoactive bowel sounds. Absent: tenderness - *Routine Extremities Exam Present: calf tenderness, extremity cold to touch. Absent: cyanosis, tenderness - *Routine Skin Exam Present: warm. Absent: rash - *Routine Neurological Exam Present: alert, moving all extremities, normal speech. Absent: facial asymmetry Assessment and Plan (1) Acute respiratory failure due to COVID-19 Status: Acute Category: Medical Code(s): U07.1 - COVID-19; J96.00 - Acute respiratory failure, unspecified whether with hypoxia or hypercapnia (2) Atrial fibrillation with rapid ventricular response Status: Acute Category: Medical Code(s): I48.91 - Unspecified atrial fibrillation (3) Cardiomyopathy, nonischemic Status: Acute Category: Medical Code(s): I42.8 - Other cardiomyopathies (4) Delirium due to general medical condition Status: Acute Category: Medical Code(s): F05 - Delirium due to known physiological condition (5) Pneumonia of right lower lobe due to infectious organism Status: Acute Category: Medical Code(s): J18.9 - Pneumonia, unspecified organism (6) Pulmonary embolus Status: Acute Category: Medical Code(s): I26.99 - Other pulmonary embolism without acute cor pulmonale (7) CAD (coronary artery disease) Status: Chronic Qualifiers: Coronary Disease-Associated Artery/Lesion type: [place] artery [place] vs. transplanted heart: [place] heart Associated angina: without angina Qualified Code(s): I25.10 - Atheroscler
--- NOTE | 2020-08-26 14:20 | PC.NURSE ---
Addendum entered by Yelena Olivares RN 08/26/20 16:22: md orders to restart cardizem gtt if pt HR maintains 120's bpm Addendum entered by Yelena Olivares RN 08/26/20 14:25: HR maintained at 60-100bpm Original Note: cardizem gtt stopped at 1340 per Neus, no other orders.
--- NOTE | 2020-08-26 16:22 | PC.NURSE ---
pt had a 10 beat run of vtach. pt asymptomatic and md null, occupational therapy aides teacher, aware. no new orders.
[2020-08-26 16:46] LABS: POC Glucose,Bedside 189 (70-110)
--- NOTE | 2020-08-26 18:24 | PC.NURSE ---
pt has done ok today. remains alert to self. pt has been turned q2hr, oral care given, as well a bath. pt all meals today. pt has drank [address] vss. will cont. to monitor.
[2020-08-26 22:40] LABS: POC Glucose,Bedside 215 (70-110)
[2020-08-27] VITALS: BP 122/38; PULSE 120; PULSE 130; RESP 16; TEMP 36.4; O2SAT 99
[2020-08-27 02:00] VITALS: BP 113/52; PULSE 109; RESP 16; O2SAT 100
[2020-08-27 04:00] VITALS: BP 116/84; PULSE 130; PULSE 131; RESP 34; TEMP 36.5; O2SAT 99
[2020-08-27 04:54] VITALS: BMI 34.9
--- NOTE | 2020-08-27 06:00 | XR_ITS ---
PROCEDURE: XR CHEST PORTABLE CLINICAL HISTORY: covid pneumonia Follow-up Covid19 pneumonia COMPARISON: CR XR CHEST 2V from 03/28/2020 CR XR CHEST AP from 07/24/[address] ANGIO CHEST from 08/21/2020 CR XR CHEST PORTABLE from 08/21/2020 FINDINGS: Cardiomegaly without failure. Consolidation noted in both mid lower lung zones consistent with pneumonia and/or atelectatic changes with bilateral effusions. There is sparing of upper lung zones. These findings have worsened since the previous exam No acute bony abnormalities. IMPRESSION: Worsening bilateral pneumonia with bilateral effusions Dictated by: Torsten Esquivel MD 08/27/2020 07:16 Torsten Esquivel MD in OV 08/27/2020 07:16
[2020-08-27 06:12] LABS: Basophils % 0.2 % (0.1-2.0); Hemoglobin 17.1 g/dL (12.2-16.2); Lymphocytes # 0.9 K/mm3 (0.7-4.5); Lymphocytes % 6.6 % (10-50); Mean Corpuscular HGB Conc 31.2 g/dL (31.8-35.4); Mean Corpuscular Hemoglobin 27.8 pg (27.0-31.2); Mean Corpuscular Volume 89.2 fl (81-99); Mean Platelet Volume 9.5 fl (7.4-10.4); Monocytes # 0.9 K/mm3 (0.1-1.0); Monocytes % 6.2 % (1.7-9.3); Platelet Count 303 K/mm3 (142-424); Red Blood Count 6.16 M/mm3 (4.20-5.40); Red Cell Distribution Width 17.3 % (11.5-17.5); White Blood Count 13.8 K/mm3 (4.8-10.8)
[2020-08-27 06:21] LABS: MANUAL DIFFERENTIAL MANUAL DIFFERENTIAL (MANUAL DIFF)
[2020-08-27 06:26] LABS: Anion Gap 12.4 mEq/L (5-15); Blood Urea Nitrogen 42 mg/dl (7-17); Calcium 7.7 mg/dl (8.4-10.2); Carbon Dioxide 15 mmol/L (22.0-30.0); Chloride 118 mmol/L (98-107); Creatinine Clearance Estimated 61 mL/min (50-200); Estimated Glomerular Filt Rate 119 ml/min (>60); GFR (African American) 144 ML/MIN (>60); Glucose 213 mg/dl (74-100); Potassium 4.4 mmoL/L (3.5-5.1); Sodium 141 mmol/L (136-145)
[2020-08-27 06:39] LABS: Alanine Aminotransferase 48 U/L (12-78); Albumin Level 2.3 g/dl (3.5-5.0); Alkaline Phosphatase 50 U/L (38-126); Aspartate Amino Transferase 37 U/L (14-36); Bilirubin,Total 0.8 mg/dl (0.2-1.3); Globulin 2.3 g/dL (1.3-3.2); Total Protein,Serum 4.6 g/dl (6.3-8.2)
[2020-08-27 06:47] VITALS: BP 105/42; PULSE 115; RESP 20; TEMP 36.6; O2SAT 96
[2020-08-27 07:06] LABS: POC Glucose,Bedside 193 (70-110)
[2020-08-27 08:00] VITALS: BP 139/53; PULSE 102; RESP 33; TEMP 36.2; O2SAT 98
--- NOTE | 2020-08-27 08:02 | PC.NURSE ---
Upon reassessment of pt at 0615, she was unable to follow commands such as Squeeze my fingers . when name is loudly called pt does open eyes and indicate she hears staff. Pt unable to swallow pills at this time. Dr Gamez aware
[2020-08-27 08:14] LABS: Burr Cells 2+; Hypochromasia 1+; Lymphocytes % 3 % (10-50); Monocytes % 6 % (2-9); Neutrophils % 89 % (42-76); Platelet Estimate Normal; Poikilocytosis 2+; Total Cells Counted 100
[2020-08-27 08:37] LABS: ABG HCO3 11.4 mmhg (22.0-26.0); ABG Oxygen Saturation 90 % (90-100); ABG PCO2 27.4 mmhg (35.0-45.0); ABG PH 7.24 mmol/L (7.35-7.45); ABG PO2 60.9 mmhg (80-100); ABG TCO2 12.2 mmhg (23-27)
[2020-08-27 08:38] LABS: Allen's Test UNABLE; Oxygen ROOM AIR %; Source L RADIAL
--- NOTE | 2020-08-27 09:23 | HMH.ACPN2 ---
Internal Medicine - PN: Subj *Date: 08/27/20 *Time: 10:11 Interval history: more lethargic this am - has edema upper and lower ext Exam Vital signs and Labs for Last 24 Hours: Temp Pulse Resp BP Pulse Ox 97.1 F L 102 H 33 H 139/53 L 98 08/27/20 08:00 08/27/20 08:00 08/27/20 08:00 08/27/20 08:00 08/27/20 08:00 Laboratory Results - last 24 hr 08/26/20 11:22: POC Glucose 180 H 08/26/20 16:33: POC Glucose 189 H 08/26/20 20:32: POC Glucose 215 H 08/27/20 05:55: Sodium 141, Potassium 4.4, Chloride 118 H, Carbon Dioxide 15 L, Anion Gap 12.4, BUN 42 H, Creatinine 0.50 L, Estimated Creat Clear 61, Estimated GFR 119, Est GFR ( Amer) 144, Glucose 213 H, Calcium 7.7 L, Total Bilirubin 0.8, AST 37 H D, ALT 48, Alkaline Phosphatase 50, Total Protein 4.6 L, Albumin 2.3 L, Globulin 2.3, Albumin/Globulin Ratio 1.0 L 08/27/20 05:55: WBC 13.8 H D, RBC 6.16 H, Hgb 17.1 H, Hct 55.0 H, MCV 89.2, MCH 27.8, MCHC 31.2 L, RDW 17.3, Plt Count 303 D, MPV 9.5, Neut % (Auto) 87.0 H, Lymph % (Auto) 6.6 L, [place] % (Auto) 6.2, Eos % (Auto) 0.0 L, Baso % (Auto) 0.2, Neut # (Auto) 12.0 H, Lymph # (Auto) 0.9, [place] # (Auto) 0.9, Eos # (Auto) 0.0, Baso # (Auto) 0.0, Total Counted 100, Neutrophils % (Manual) 89 H, Band Neutrophils % 2.0, Lymphocytes % (Manual) 3 L, Monocytes % (Manual) 6, Platelet Estimate Normal, Hypochromasia 1+, Poikilocytosis 2+, Kari Cells 2+ 08/27/20 06:22: POC Glucose 193 H 08/27/20 08:06: Specimen Source L radial, O2 % Room air, ABG pH 7.24 L*, ABG pCO2 27.4 L, ABG pO2 60.9 L, ABG HCO3 11.4 L, ABG Total CO2 12.2 L, ABG O2 Saturation 90, ABG Base Excess -16.0 L, Torsten Test Unable I & O for Last 24 hours: Intake & Output 08/24/20 08/25/20 08/26/20 08/27/20 11:59 11:59 11:59 11:59 Intake Total 6344 / 6344 3539 / 3539 3040 / 3040 180 / 180 Output Total 1450 / 1450 500 / 500 1999 / 1999 Balance 4894 / 4894 3039 / 3039 3040 / 3040 -1820 / -1820 Weight 161 lb 1.01 oz 160 lb 14.999 oz 183 lb 3 oz 190 lb Microbiology Reports for the Last 24 Hours: Microbiology 08/21/20 15:45 Blood Blood Culture - Final NO GROWTH AFTER 5 DAYS 08/21/20 15:45 Blood Blood Culture - Final NO GROWTH AFTER 5 DAYS - Constitutional somnolent - *Routine HEENT Exam Head: Present: normocephalic Eye: Present: EOMI, PERRL ENT: Present: mucous membranes dry - *Routine Neck Exam Absent: JVD - *Routine Respiratory Exam Present: decreased breath sounds - *Routine Cardiovascular Exam Present: murmur, irregularly irregular - *Routine Abdominal Exam Present: soft - *Routine Extremities Exam Present: edema. Absent: calf tenderness - *Routine Neurological Exam Present: altered mental status - Routine Psychiatric Exam Present: unable to assess Assessment and Plan (1) Acute respiratory failure due to COVID-19 Status: Acute Category: Medical Code(s): U07.1 - COVID-19; J96.00 - Acute respiratory failure, unspecified whether with hypoxia or hypercapnia (2) Atrial fibrillation with rapid ventricular response Status: Acute Category: Medical Code(s): I48.91 - Unspecified atrial fibrillation (3) Cardiomyopathy, nonischemic Status: Acute Category: Medical Code(s): I42.8 - Other cardiomyopathies (4) Delirium due to general medical condition Status: Acute Category: Medical Code(s): F05 - Delirium due to known physiological condition (5) Pneumonia of right lower lobe due to infectious organism Status: Acute Category: Medical Code(s): J18.9 - Pneumonia, unspecified organism (6) Pulmonary embolus Status: Acute Category: Medical Code(s): I26.99 - Other pulmonary embolism without acute cor pulmonale (7) CAD (coronary artery disease) Status: Chronic Qualifiers: Coronary Disease-Associated Artery/Lesion type: [place] artery [place] vs. transplanted heart: [place] heart Associated angina: without angina Qualified Code(s): I25
--- NOTE | 2020-08-27 10:28 | P.PN_ITS ---
Acute Rapid Response Note - Subjective Date Responded: 08/27/20 Time Responded: 10:10 - Objective Findings: Vital Signs - Last 4 Hours Temperature 97.1 F L 08/27/20 08:00 Temperature Source Axillary 08/27/20 08:00 Pulse Rate 102 H 08/27/20 08:00 Respiratory Rate 33 H 08/27/20 08:00 Blood Pressure 139/53 L 08/27/20 08:00 Blood Pressure Mean 81 08/27/20 08:00 Blood Pressure Source Automatic Cuff 08/27/20 08:00 Blood Pressure Position Supine 08/27/20 08:00 02 Sat by Pulse Oximetry 98 08/27/20 08:00 Oxygen Delivery Method 08/27/20 08:00 Oxygen Flow Rate (LPM) 2 08/22/20 11:00 Lab Results for Past 12 Hours 08/27/20 08:06: Specimen Source L radial, O2 % Room air, ABG pH 7.24 L*, ABG pCO2 27.4 L, ABG pO2 60.9 L, ABG HCO3 11.4 L, ABG Total CO2 12.2 L, ABG O2 Saturation 90, ABG Base Excess -16.0 L, Torsten Test Unable 08/27/20 06:22: POC Glucose 193 H 08/27/20 05:55: WBC 13.8 H D, RBC 6.16 H, Hgb 17.1 H, Hct 55.0 H, MCV 89.2, MCH 27.8, MCHC 31.2 L, RDW 17.3, Plt Count 303 D, MPV 9.5, Neut % (Auto) 87.0 H, Lymph % (Auto) 6.6 L, [place] % (Auto) 6.2, Eos % (Auto) 0.0 L, Baso % (Auto) 0.2, Neut # (Auto) 12.0 H, Lymph # (Auto) 0.9, [place] # (Auto) 0.9, Eos # (Auto) 0.0, Baso # (Auto) 0.0, Total Counted 100, Neutrophils % (Manual) 89 H, Band Neutrophils % 2.0, Lymphocytes % (Manual) 3 L, Monocytes % (Manual) 6, Platelet Estimate Normal, Hypochromasia 1+, Poikilocytosis 2+, [place] Cells 2+ 08/27/20 05:55: Sodium 141, Potassium 4.4, Chloride 118 H, Carbon Dioxide 15 L, Anion Gap 12.4, BUN 42 H, Creatinine 0.50 L, Estimated Creat Clear 61, Estimated GFR 119, Est GFR ( Amer) 144, Glucose 213 H, Calcium 7.7 L, Total Bilirubin 0.8, AST 37 H D, ALT 48, Alkaline Phosphatase 50, Total Protein 4.6 L, Albumin 2.3 L, Globulin 2.3, Albumin/Globulin Ratio 1.0 L 08/26/20 20:32: POC Glucose 215 H Notified overhead of rapid response. Patient then escalated to CODE BLUE. Patient found asystole without spontaneous respirations. As patient was full code at the time of the arrest CPR initiated and with ACLS protocols. I intubated the patient with a MAC 3 fiberoptic scope using an 8 ET tube and secured at 23 cm at the gumline. Patient did receive 1 push of epi. Shortly after initiation of code family members contacted and decided to make patient DNR and withdraw care. As patient was in PEA resuscitative measures was halted. Patient did have agonal respirations with no palpable pulse. Resuscitative measures called at 1020. Rapid Response Exam General; patient nonresponsive with no respiratory effort. Well-developed well- nourished. HEENT: Patient I did not list mucous membranes moist grade 1 view with fiberoptic laryngoscope using MAC 3 blade, antibiotic with 8 ET tube secured at 23 cm at the gumline. Cardiac: No palpable pulses no heart sounds auscultated Respiratory: No auscultated will breath sounds no spontaneous rise and fall with chest Abdominal: No intestinal sounds no pain with palpation. Neuro: Pupils fixed and dilated no gag reflex on intubation unresponsive - General General appearance: alert, lethargic RR Procedures/Assess/Plan - Assessment and plan all Dx Assessment and Plan for all problems:: Patient's family has decided to withdraw care and make patient DNR/DNI. Resuscitative measures called at 1020. Patient did have agonal respirations at that time and was in PEA. No further escalation of care as such. As needed morphine for imminent .
--- NOTE | 2020-08-27 11:14 | PC.NURSE ---
pt noted to not be breathing, no pulse felt by this rn, gwendolyn escobedo rn, and alise trevino rn. code called. cpr started at 1010, 1mg epid given at 1013, er tubed pt at 1014. pt family on phone requesting pt be a DNR, verified with Flavia RN, and Hammad Beverly RN. TOD 1020. family notified to come in. EMELI contacted at 1045, spoke with Krissy Kamara. pt ruled out. ID # [id number]
--- NOTE | 2020-08-27 11:44 | PC.NURSE ---
PT FAMILY REQUEST TO USE [facility]. FAMILY HAVE LEFT FACILITY. HOME NOTIFIED.
--- NOTE | 2020-08-28 09:27 | HMH.DEADDC ---
Discharge Sum: Prov - Provider Primary care physician: Kris Gamez MD Visit Care Team Role Provider Type Cortes MD [place] Other Providers Staff Physician Calixto Stevenson MD Other Providers Staff Physician TAVARES Ring Other Providers Physician Oceanographer Physical Lula Kwok, MEDICINE TECH Other Providers Nurse Practitioner Krissy Handy APRN Other Providers Nurse Practitioner Valdo Russell MD Emergency Provider ER Physician Kris Gamez MD Attending Provider Staff Physician Primary Care Provider Stalin Becker MD Admit Provider Staff Physician Consults: 08/22/20 08:00 Pulmonology Consult [Consult to Pulmonology] [CONS] Routine Consulting Provider: Zacarias Ya Reason For Consult: pul emboli/covid 08/22/20 10:38 Cardiology Consult [Consult to Cardiology] [CONS] Routine Consulting Provider: Cardiology Reason For Consult: A-Fib. PE 08/22/20 10:47 Cardiology Consult [Consult to Cardiology] [CONS] Routine Consulting Provider: Cardiology Reason For Consult: NEW ONSET AFIB Discharge Sum: Summary - Date and Time Date of admission: 08/21/20 21:10 - Additional Data Confirmation of as documented by pronouncing clinician: no pulse Family: contacted Attending/PCP notified?: Yes Attending physician: Kris Gamez MD Was code activated?: Yes Organ bank notified?: Yes
--- NOTE | 2020-08-28 09:28 | [facility].DCSUM ---
General - General Admission date:: 08/21/20 Discharge date: 08/27/20 HPI HPI: This is a 79-year-old female presented [facility] emergency department from [facility] with altered mental status. The patient had a recent left hip replacement. The family states that she has been having some confusion over the last week. She was diagnosed with coronavirus 4 days ago. She is not been complaining of any difficulty breathing, however has had a mild cough. Patient is alert and oriented x1 on initial examination. She is found to be in atrial fibrillation with rapid ventricular rate. She has no history of this in the past. She is requiring some supplemental oxygen. No other history could be obtained (Per Dr. Mon). White blood cell count 4.9 H&H stable at 12.6/37.4. Chemistries unremarkable She is COVID-19 positive for 4 days skin 08/21/20 CXR: IMPRESSION: Pneumonia in the right upper and right perihilar region and possibly left midlung Dictated by: Alvin 08/21/[address]: FINDINGS: No midline shift, mass effect, intracranial hemorrhage, hydrocephalus, or extra-axial fluid collection is evident. There is generalized atrophy with hypoattenuation of the periventricular white matter consistent with microangiopathic changes. 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 No mastoid effusion. No sinus air-fluid level. IMPRESSION: No acute intracranial finding Dictated by: Esquivel: 08/21/20 Chest CTA: FINDINGS: HEART AND MEDIASTINAL STRUCTURES: There is cardiomegaly. Filling defects are present with a right upper and lower lobar and segmental pulmonary arteries consistent with pulmonary emboli. Coronary artery calcifications are present. There is mild prominence of the main pulmonary artery measuring 3 cm. There is mild flattening of the interventricular septum and reflux of contrast into the inferior vena cava which may be seen with right heart strain.. LUNGS AND PLEURAL SPACES: Multifocal areas of ground-glass opacification in the upper and lower lobes. There are small bilateral pleural effusions with bibasilar atelectatic change. Pulmonary nodules could be obscured. BONY STRUCTURES: No acute bony abnormalities apparent. UPPER ABDOMEN: Unremarkable. ADDITIONAL FINDINGS: No other significant abnormalities. IMPRESSION: 1. Right-sided pulmonary emboli. There is straightening the interventricular septum and reflux of contrast into the inferior vena cava which may be seen with right heart strain. Cardiomegaly is present. 2. Multifocal ground-glass infiltrates which may be seen with atypical/Covid19 pneumonia 3. Small bilateral pleural effusions. Dictated by: Alvin In the emergency department she received ceftriaxone 1 g IV, doxycycline 100 mg IV, 2 L of IV fluids, diltiazem 10 mg bolus IV and a drip was started This morning patient sitting up in bed she is alert and oriented x1 she reports that she does feel a little better than yesterday but is still short of breath. Currently oxygen saturations 98% on 2 L per nasal cannula. Hospital Course Hospital Course: Time of - 1020 Laboratory Tests 08/21/20 08/21/20 08/21/20 15:22 15:45 15:45 WBC 4.9 RBC 4.32 Hgb 12.6 Hct 37.4 MCV 86.4 MCH 29.1 MCHC 33.7 RDW 16.7 Plt Count 136 L MPV 9.9 Neut % (Auto) 80.2 H Lymph % (Auto) 11.2 [place] % (Auto) 8.5 Eos % (Auto) 0.1 Baso % (Auto) 0.1 Neut # (Auto) 3.9 Lymph # (Auto) 0.5 L [place] # (Auto) 0.4 Eos # (Auto) 0.0 Baso # (Auto) 0.0 Total Counted Neutrophils % (Manual) Band Neutrophils % Lymphocytes % (Manual) Monocytes % (Manual) Platelet Estimate Hypochromasia Poikilocytosis Anisocytosis Kari Cells PT INR APTT D-Dimer Specimen Source O2 % ABG pH ABG pCO2 ABG pO2 ABG HCO3 ABG Total CO2 ABG
== END 2020-08-27 12:34 | disposition expired | DRG 177 ==
LOC: ER 18:42 → 2ND 21:29
PROVIDERS: Internal Medicine Pulmonary Disease; Nurse Practitioner Family; Admitting Provider Family Medicine; Emergency Provider Emergency Medicine; PCP Emergency Medicine; Visit Provider Emergency Medicine
DX: U07.1 COVID-19 (principal); L89.153 Pressure ulcer of sacral region, stage 3; I26.99 Other pulmonary embolism without acute cor pulmonale; J96.00 Acute respiratory failure, unspecified whether with hypoxia or hypercapnia; I42.9 Cardiomyopathy, unspecified; I82.433 Acute embolism and thrombosis of popliteal vein, bilateral; I82.413 Acute embolism and thrombosis of femoral vein, bilateral; S72.092D Other fracture of head and neck of left femur, subsequent encounter for closed fracture with routine healing; I25.10 Atherosclerotic heart disease of native coronary artery without angina pectoris; E11.9 Type 2 diabetes mellitus without complications; Z79.4 Long term (current) use of insulin; Z79.82 Long term (current) use of aspirin; Z79.51 Long term (current) use of inhaled steroids; Z79.899 Other long term (current) drug therapy; I48.91 Unspecified atrial fibrillation
CPT/HCPCS: 36415; 70450; 71045; 71275; 80053; 81001; 82140; 82803; 82962; 83605; 83880; 84145; 84443; 84484; 85007; 85025; 85378; 85610; 85730; 86328; 87040; 87086; 87581; 87633; 87798; 93005; 93306; 93970; 96365; 96366; 96367; 96375; 99285; Q9967; U0003